=== PATIENT | female | born 1975 | race Caucasian/White ===

== ENCOUNTER 2016-09-13 09:47 | Emergency (ER) | payer OTHER ==
[~2016-09-13] VITALS: Ht 154.9 cm; Wt 57.8 kg
[~2016-09-13 09:47] MED LIST: ALPR-411 PO; CYAN500T PO; FRRS300 PO; LEVO25TA PO; LEVO300T2 PO; MULT-506 PO; ONDA4TAB46 PO; PANT40TA PO
[2016-09-13 09:55] VITALS: TEMP 37.1; Ht 154.9 cm; Wt 57.8 kg
[2016-09-13] MEDS ORDERED: HYDR-3983 PO (10:39)
[2016-09-13] MEDS ORDERED: CLIN150C PO (10:39)
[2016-09-13] MEDS ORDERED: OXYCODONE IR HOME PACK PO STA (11:02)
--- NOTE | 2016-09-13 11:05 | EMERGENCY ROOM VISIT NOTE ---
History First contact with patient: 10:42 Chief Complaint: DENTAL PAIN Stated Complaint: PAIN BECAUSE OF TEETH EXTRACTIONS Nursing Triage Summary: pt had 8 teeth pulled yesterday and cant get her pain under control, called dentist but they arent available History of Present Illness The patient is a 41 year old female who presents to the Emergency Room via private vehicle with complaints of "pain because of teeth extractions". The patient states that yesterday around 9 AM she had 8 posterior teeth extracted from her mouth. She states this was performed due to [place], by Dr. Verdugo. She has had trouble sleeping since the incident and although she has been prescribed [place] 7.5/325 as well as clindamycin 150 mg she has had a lot of pain. She states that she called the dentist office this morning and they told her that the dentist was not in today and that if she needed to she could go to the emergency department. She notes that her whole mouth hurts and the right posterior jaw. She states the teeth were all molars. She states that she drove here today however her last dose of [place] was at 2 AM this morning. She notes she took 4 Ol[place] tablets yesterday and then also one at 2 AM. She has had associated chills. She denies any fever. She notes minimal draining initially which has stopped. She has followed the instructions of which were provided to her in a handout from the dentist. Review of Systems A complete 6-point Review of Systems was discussed with the patient, with pertinent positives and negatives listed in the History of Present Illness. All remaining Review of Systems questions can be considered negative unless otherwise specified. Past Medical/Surgical History Medical Problems: (1) gastric bypass (2) Hypothyroidism (3) ulcer Family History Unremarkable Social History Smoking Status: Current Every Day Smoker Alcohol Use: occasionally Drug Use: none Marital Status: in relationship Housing Status: lives with family Occupation Status: employed Social History: Patient lives at home, admits to tobacco use but denies alcohol use. Current/Historical Medications Scheduled Alprazolam (Xanax), 0.25 MG PO BID Clindamycin Hcl (Cleocin), 150 MG PO QID Levothyroxine Sodium (Synthroid), 0.5 TAB PO DAILY Levothyroxine Sodium (Synthroid), 300 MCG PO DAILY Multivitamin (Multivitamin), 1 TAB PO DAILY Pantoprazole (Protonix), 40 MG PO BID Scheduled PRN Hydrocodone/Acetaminophen 7.5MG/325MG ([place] 7.5MG/325MG), 1 TAB PO Q6H PRN for Pain Ondansetron Hcl (Zofran), 4 MG PO Q6H PRN for Nausea Allergies Coded Allergies: Penicillins (Verified Allergy, Severe, FACIAL SWELLING,HIVES, 09/13/16) FACIAL SWELLING AND HIVES Sulfa Antibiotics (Verified Allergy, Intermediate, Hives, 09/13/16) Physical Exam Vital Signs Date Time Temp Pulse Resp B/P Pulse Ox O2 Delivery O2 Flow Rate FiO2 09/13/16 11:12 83 120/77 100 09/13/16 09:55 37.1 99 18 125/87 100 Room Air Physical Exam VITAL SIGNS - Vital signs and nursing notes were reviewed. Patient is afebrile , normotensive, non-tachycardic and is saturating well on room air 100%. GENERAL -41-year-old female appearing her stated age who is in no acute distress. Communicates well with provider and answers questions appropriately. SKIN - Without rashes. No petechial rashes or bruising on the face. There is slight edema overlying the right angle of the mandible. HEAD - NC/AT. MOUTH/OROPHARYNX - Without perioral cyanosis. Buccal mucosa pink and moist and without leukoplakia. Tongue midline with equal elevation of palate bilaterally. No tonsillar hypertrophy, erythema, or exudates noted. Fair dentition noted. There is evidence of recent extraction of molars. There is no bleeding. No evidence of abnormality with the extraction sites. No evidence of infection at this time. NECK - Neck with FROM. Supple to palpation. No lymphadenopathy noted. No nuchal rigidity. Mild swelling over the right angle of the mandible. LUNGS - Chest wall symmetric without accessory muscle use, intercostals retractions, or central cyanosis. Normal vesicular breath sounds CTA B/L. No wheezes, rales, or rhonchi appreciated. CARDIAC - RRR with S1/S2. No murmur, rubs, or gallops appreciated. Medical Decision & Procedures Medications Administered Medications (Trade) Dose Ordered Sig/Kalli Route Start Time Stop Time Status Last Admin Dose Admin Oxycodone HCl (Roxicodone Immediate Rel 5MG Home Pack) 1 homepack UD STAT PO 09/13/16 11:02 09/13/16 11:04 DC 09/13/16 11:07 1 [facility] Medical Decision Patient was seen and evaluated as above. It appears the patient is experiencing postoperative pain. No evidence of infection at this time. I was concerned that the patient's dentist had told her to go to the ER and therefore did elect to call the dentist with the patient's consent. I spoke with the officer at 11 AM. I called the [phone] number. They informed me that they did indeed tell the patient to go to the ER if she needed to as there were no dentist in the office that would be able to see her. They did however offer to have her seen tomorrow if the patient would call. I do believe this is appropriate and discussed this with the patient who seemed happy and requested some relief in the meantime's that she may be able to sleep. I did not feel comfortable providing additional prescription on top of the [place] as she already had many tablets left therefore did elect to give her a slightly stronger medication, oxycodone immediate release 5 mg tablets. This was provided to her in a home pack and not prescription again due to having the already new prescription of [place]. She seemed happy with this, and was educated upon worrisome symptoms which to return, had questions prior to discharge, and was discharged home in good condition. My usual and customary conversation was had with the patient regarding narcotic medication. In the evaluation and treatment of this patient, the following differential diagnoses were considered: Periapical Abscess, Osteonecrosis of the Jaw, Dental Fracture, Dental Caries, Brandon's Angina, Vincent's Angina, Facial Cellulitis. [place] Drug Monitoring Program Search Results: patient reviewed within database, see additional documentation Impression Primary Impression: Pain, dental Departure Information Dispostion Home / Self-Care Condition GOOD Patient Instructions My [facility] Additional Instructions You have been treated in the Emergency Department for Dental Pain. You have been prescribed A 24 hour supply of OXY IR to be used for pain control. This is a narcotic medication. You cannot drive or consume alcohol while on this medicine. This medicine should only be used for pain that cannot be controlled with [id number] pain medicines. Please do not take this medication with the [place]. Please continue the clindamycin. I did speak with your dentist office, and they're encouraging you to call them to schedule an appointment for tomorrow. For pain control, you can use the following [id number] medicines (if >12 yo): - Regular strength (325mg/tab) Tylenol (acetaminophen) 2 tabs every 4-6 hours as needed. Do not exceed 12 tablets in a 24 hour period. Avoid taking more than 4 grams (4000 mg) of Tylenol per day. This includes any other sources of acetaminophen you may take on a regular basis. (DO NOT TAKE WITH THE [place]/ HYDROCODONE ACETAMINOPHEN 7.5/325 IT ALREADY HAS TYLENOL IN IT) - Regular strength (200 mg/tab) Advil (ibuprofen) 1-2 tabs every 4-6 hours as needed. Do not exceed a dose of 3200 mg per day. Refrain from smoking cigarettes or using chewing tobacco until you have been evaluated by your dentist. Keeping beverages lukewarm and consuming soft foods can decrease your pain. Warm compresses over the affected area may offer some relief. You MUST seek evaluation of your dental pain by a dentist following your visit to the Emergency Department. The Emergency Department is not capable of treating dental issues long-term. You should call your dentist as soon as possible to make an appointment for evaluation of your dental pain. Return to the emergency department if you develop the following symptoms despite treatment course outlined above: fever, intractable pain, increased redness, swelling, or purulent discharge. Please return to the emergency department with any new/concerning symptoms.
[2016-09-13 11:12] VITALS: BP 120/77; PULSE 83; O2SAT 100
[2016-10-04] MEDS ORDERED: DLD2 PO ×2 (18:46→18:49)
[2016-10-05] MEDS ORDERED: VALA1TAB31 PO (20:08)
== END 2016-09-13 11:13 | disposition home or self-care (01) ==
LOC: C.EDB 09:48 → C.EDC 11:13
DX: K08.89 Other specified disorders of teeth and supporting structures (principal); E03.9 Hypothyroidism, unspecified; F17.200 Nicotine dependence, unspecified, uncomplicated; Z87.19 Personal history of other diseases of the digestive system; Z79.899 Other long term (current) drug therapy; Z88.0 Allergy status to penicillin; Z88.2 Allergy status to sulfonamides

== ENCOUNTER 2016-10-01 15:59 | Inpatient (IN) | payer OTHER ==
[~2016-10-01] VITALS: Ht 154.9 cm; Wt 62.9 kg
[~2016-10-01 15:59] MED LIST changes: +CLIN150C PO; -CYAN500T PO; -FRRS300 PO; +HYDR-3983 PO
[2016-10-01] MEDS ORDERED: PROCHLORPERAZINE 5 MG/ML 2 ML VIAL IV STA (18:07)
[2016-10-01] MEDS ORDERED: SODIUM CHLORIDE 0.9% 1000ML 1,000 ML IV STA ×2 (18:07→19:56)
[2016-10-01] MEDS ORDERED: KETOROLAC TROMETHAMINE 30 MG/ML VIAL IV STA (18:07)
[2016-10-01] MEDS ORDERED: DiphenhydrAMINE HCL 50 MG/ML VIAL IV STA (18:07)
--- NOTE | 2016-10-01 18:09 | EMERGENCY ROOM VISIT NOTE ---
History Report prepared by Bam: Saul Rojas Under the Supervision of: Dr. Mega Hurst M.D. First contact with patient: 17:57 Chief Complaint: ILLNESS Stated Complaint: MIGRAINE,STIFF/PAINFUL NECK,FEVER History of Present Illness The patient is a 41 year old female who presents to the Emergency Room with complaints of a headache that began three days ago. The patient rates her pain a 10/10 in severity. She has had migraines in the past, but not in five years or so. She states that this is "the worst headache she has ever felt." She is also experiencing neck pain, nausea, fever, chills, and light sensitivity that have developed since the headache began. She denies any rhinorrhea or congestion. Her pain worsens with movement. She has a history of a tubal ligation, and denies any chance to be . Source of History: patient Onset: 3 days ago Position: head Symptom Intensity: 10/10 Quality: ache Timing: constant Modifying Factors (Worsening): movement Associated Symptoms: + chills, + fevers, + nausea, + neck pain Note: She denies any rhinorrhea or chest congestion. Review of Systems See HPI for pertinent positives & negatives. A total of 10 systems reviewed and were otherwise negative. Past Medical & Surgical Medical Problems: (1) gastric bypass (2) Hypothyroidism (3) ulcer Family History Patient reports no known family medical history. Social History Smoking Status: Current Every Day Smoker Alcohol Use: occasionally Drug Use: none Marital Status: in relationship Housing Status: lives with family Occupation Status: employed Current/Historical Medications Scheduled Levothyroxine Sodium (Levothyroxine Sodium), 112 MCG PO QAM Levothyroxine Sodium (Levothyroxine Sodium), 200 MCG PO QAM Multivitamin (Multivitamin), 1 TAB PO DAILY Pantoprazole (Protonix), 40 MG PO BID Scheduled PRN Alprazolam (Xanax), 0.25 MG PO DAILY PRN for Anxiety Allergies Coded Allergies: Penicillins (Verified Allergy, Severe, FACIAL SWELLING,HIVES, 10/01/16) FACIAL SWELLING AND HIVES Sulfa Antibiotics (Verified Allergy, Intermediate, Hives, 10/01/16) Physical Exam Vital Signs Date Time Temp Pulse Resp B/P Pulse Ox O2 Delivery O2 Flow Rate FiO2 10/01/16 20:00 81 16 120/74 99 Room Air 10/01/16 18:13 100 Room Air 10/01/16 18:12 87 10/01/16 18:03 105 20 129/81 100 Room Air 10/01/16 16:16 37.3 100 18 119/81 100 Room Air Physical Exam GENERAL: Patient is a healthy-appearing well-nourished HEAD: Normocephalic atraumatic EYES: Ocular movements intact pupils equal and react to light OROPHARYNX mucous membranes are moist no exudates present no erythema or edema present NECK: Supple no nuchal rigidity CHEST: Good equal expansion LUNGS: Clear and equal to auscultation CARDIAC: Normal S1 and S2 ABDOMEN: Soft nontender no guarding BACK: No CVA tenderness EXTREMITIES: No pain upon palpation normal muscle strength in all groups no clubbing cyanosis or edema NEURO: Patient is following commands is answering questions appropriately. Alert and oriented x3 Cranial Nerves 2-12 grossly intact Medical Decision & Procedures ER Provider Diagnostic Interpretation: Radiology results are stated below per my review and radiologist interpretation: HEAD CT NONCONTRAST CT DOSE: 844.62 mGy.cm HISTORY: Headache Pt c/o severe headache TECHNIQUE: Multiaxial CT images of the head were performed without the use of intravenous contrast. Comparison: 09/21/2013 Findings: The paranasal sinuses and mastoid air cells are clear. The calvarium and skull base are intact. The ventricles and sulci are within normal limits. There is no mass, hematoma, midline shift, or acute infarct. Impression: No acute intracranial abnormality. Electronically signed by: Asael Hendricks M.D. 10/01/2016 6:58 PM Dictated Date/Time: 10/01/2016 6:57 PM Laboratory Results 10/01/16 18:28 Red Blood Count 4.41, Mean Corpuscular Volume 71.7, Mean Corpuscular Hemoglobin 22.7, Mean Corpuscular Hemoglobin Concent 31.6, Mean Platelet Volume 10.3, Neutrophils (%) (Auto) 60.5, Lymphocytes (%) (Auto) 26.3, Monocytes (%) (Auto) 11.3, Eosinophils (%) (Auto) 1.6, Basophils (%) (Auto) 0.3, Neutrophils # (Auto ) 2.30, Lymphocytes # (Auto) 1.00, Monocytes # (Auto) 0.43, Eosinophils # (Auto ) 0.06, Basophils # (Auto) 0.01 10/01/16 18:28 Test 10/01/16 00:00 10/01/16 18:28 10/01/16 18:45 10/01/16 19:50 Influenza Type A Antigen Neg for Influ A (NEG) Influenza Type B Antigen Neg for Influ B (NEG) White Blood Count 3.80 K/uL (4.8-10.8) Red Blood Count 4.41 M/uL (4.2-5.4) Hemoglobin 10.0 g/dL (12.0-16.0) Hematocrit 31.6 % (37-47) Mean Corpuscular Volume 71.7 fL (80-100) Mean Corpuscular Hemoglobin 22.7 pg (25-34) Mean Corpuscular Hemoglobin Concent 31.6 g/dl (32-36) Platelet Count 245 K/uL (130-400) Mean Platelet Volume 10.3 fL (7.4-10.4) Neutrophils (%) (Auto) 60.5 % Lymphocytes (%) (Auto) 26.3 % Monocytes (%) (Auto) 11.3 % Eosinophils (%) (Auto) 1.6 % Basophils (%) (Auto) 0.3 % Neutrophils # (Auto) 2.30 K/uL (1.4-6.5) Lymphocytes # (Auto) 1.00 K/uL (1.2-3.4) Monocytes # (Auto) 0.43 K/uL (0.11-0.59) Eosinophils # (Auto) 0.06 K/uL (0-0.5) Basophils # (Auto) 0.01 K/uL (0-0.2) RDW Standard Deviation 37.2 fL (36.4-46.3) RDW Coefficient of Variation 14.2 % (11.5-14.5) Immature Granulocyte % (Auto) 0.0 % Immature Granulocyte # (Auto) 0.00 K/uL (0.00-0.02) Large Platelets 1+ Microcytosis PRESENT Anion Gap 8.0 mmol/L (3-11) Est Creatinine Clear Calc Drug Dose 85.0 ml/min Estimated GFR () 128.3 Estimated GFR (Non- 110.7 BUN/Creatinine Ratio 8.7 (10-20) Calcium Level 8.8 mg/dl (8.5-10.1) Total Bilirubin 0.4 mg/dl (0.2-1) Direct Bilirubin < 0.1 mg/dl (0-0.2) Aspartate Amino Transf (AST/SGOT) 16 U/L (15-37) Alanine Aminotransferase (ALT/SGPT) 16 U/L (12-78) Alkaline Phosphatase 76 U/L (45-117) Total Protein 7.4 gm/dl (6.4-8.2) Albumin 3.7 gm/dl (3.4-5.0) Monoscreen NEG (NEG) Urine Color DK YELLOW Urine Appearance CLOUDY (CLEAR) Urine pH 6.5 (4.5-7.5) Urine Specific [place] 1.034 (1.000-1.030) Urine Protein TRACE (NEG) Urine Glucose (UA) NEG (NEG) Urine Ketones TRACE (NEG) Urine Occult Blood NEG (NEG) Urine Nitrite NEG (NEG) Urine Bilirubin NEG (NEG) Urine Urobilinogen NEG (NEG) Urine Leukocyte Esterase SMALL (NEG) Urine WBC (Auto) 1-5 /hpf (0-5) Urine RBC (Auto) 0-4 /hpf (0-4) Urine Hyaline Casts (Auto) 1-5 /lpf (0-5) Urine Epithelial Cells (Auto) >30 /lpf (0-5) Urine Bacteria (Auto) NEG (NEG) Urine Test NEG (NEG) CSF Color COLORLESS CSF Appearance CLEAR CSF WBC 370 /uL (0-5) CSF RBC 2 /uL (0) CSF Polynuclear WBCs 9.0 % CSF Mononuclear WBCs 91.0 % CSF Xanthrochromic NO XANTHOCHROMIA CSF Cell Count Tube # 4 CSF Chemistry Tube # 2 CSF Glucose 54 mg/dl (40-70) CSF Total Protein 66.3 mg/dl (15.0-45.0) Labs reviewed by ED physician. Medications Administered Medications (Trade) Dose Ordered Sig/Kalli Route Start Time Stop Time Status Last Admin Dose Admin Sodium Chloride (Nss 1000ml) 1,000 ml @ 999 mls/hr Q1H1M STAT IV 10/01/16 18:07 10/01/16 19:07 DC 10/01/16 18:35 999 MLS/HR Diphenhydramine HCl (Benadryl Inj) 50 mg NOW STAT IV 10/01/16 18:07 10/01/16 18:11 DC 10/01/16 18:35 50 MG Dexamethasone Sodium Phosphate (Decadron Inj) 10 mg NOW ONCE IV 10/01/16 18:15 10/01/16 18:16 DC 10/01/16 18:35 10 MG Ketorolac Tromethamine (Toradol Inj) 30 mg NOW STAT IV 10/01/16 18:07 10/01/16 18:11 DC 10/01/16 18:35 30 MG Prochlorperazine Edisylate (Compazine Inj) 5 mg NOW STAT IV 10/01/16 18:07 10/01/16 18:11 DC 10/01/16 18:35 5 MG Hydromorphone HCl (Dilaudid Inj) 0.5 mg NOW STAT IV 10/01/16 19:27 10/01/16 19:28 DC 10/01/16 19:39 0.5 MG Ondansetron HCl (Zofran Inj) 4 mg NOW STAT IV 10/01/16 19:27 10/01/16 19:28 DC 10/01/16 19:38 4 MG Hydromorphone HCl 0.5 mg 0.5 mg NOW STAT IV 10/01/16 19:56 10/01/16 19:58 DC 10/01/16 20:12 0.5 MG Sodium Chloride 1,000 ml @ 999 mls/hr Q1H1M STAT IV 10/01/16 19:56 10/01/16 20:56 DC 10/01/16 20:11 999 MLS/HR Promethazine HCl/ Sodium Chloride (Phenergan Inj/ Nss 50ml) 51 ml @ 204 mls/hr NOW STAT IV 10/01/16 19:56 10/01/16 20:10 DC 10/01/16 20:11 204 MLS/HR Magnesium Sulfate (Magnesium Sulfate) 1 gm NOW STAT IV 10/01/16 19:56 10/01/16 19:58 DC 10/01/16 20:11 1 GM Ceftriaxone Sodium (Rocephin Inj) 2 gm NOW STAT IV 10/01/16 21:19 10/01/16 21:23 DC 10/01/16 21:30 2 GM Levofloxacin (Levaquin / D5W) 750 mg NOW STAT IV 10/01/16 21:19 10/01/16 21:23 DC 10/01/16 21:31 750 MG Procedure Lumbar Puncture Indication: Headache. Verbal consent was obtained after the risks and benefits were explained, including but not limited to headache, bleeding/clotting, scarring, infection, pain, and bone/joint/nerve damage. At this time, the risks of the procedure are less than the risks of NOT performing the procedure. A time out was taken and the correct patient and site identified. The patient was placed in the upright position and the back was prepped with betadine and draped in the standard fashion. The L3 intervertebral space was identified, anesthetized locally with 1 % lidocaine without epinephrine, and the spinal needle was inserted through the skin with the bevel parallel to the dural fibers. The needle was carefully advanced into the lumbar cistern and 4 tubes of clear CSF was obtained. The stylet was replaced and the needle was removed. A bandaid was placed and the patient was placed in the supine position. The patient tolerated the procedure well and there were no complications. ED Course 1756: Past medical records reviewed. The patient was evaluated in room C7. A complete history and physical examination was performed. 1806: Ordered Compazine Inj 5 mg IV, Toradol Inj 30 mg IV, Benadryl Inj 50 mg IV , Sodium Chloride 1000 ml @ 999 mls/hr IV 1814: Ordered Decadron Inj 10 mg 1926: Ordered Zofran Inj 4 mg IV, Dilaudid Inj 0.5 mg IV 1934: At this time, I performed a lumbar puncture procedure. Please see the procedure note for further detail. 1955: Ordered Magnesium Sulfate 1 gm IV, Promethazine HCl 25 mg/ Sodium Chloride 51 ml @ 204 mls/hr IV, Sodium Chloride 1000 ml @ 999 mls/hr IV, Dilaudid Inj 0.5 mg IV 2118: Ordered Vancomycin HCl 1000 mg/ Sodium Chloride 270 ml @ 125 mls/hr IV, Acyclovir Sodium 750 mg/Dextrose 265 ml @ 265 mls/hr IV, Levofloxacin 750 mg IV , Rocephin Inj 2 gm IV 2121: Upon reexamination the patient is resting. I discussed results and treatment plan with the patient. She verbalizes agreement and understanding. I spoke with Dr. Purdy from the [facility] Hospitalist Service. The patient will be evaluated for further management. Medical Decision Differential diagnosis: Etiologies such as migraine headache, meningitis, sinusitis, CO exposure, ICH, SAH, infection, tumor, headache, sinus thrombosis, arterial dissection, as well as others were entertained. 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 The patient is also complaining of a stiff neck and cannot bend her head forward. Based on these findings I felt a lumbar puncture was indicated and discussed this with the patient. She willingly signed the consent. An IV was established, the patient given normal saline bolus, Benadryl, Compazine, Toradol, Decadron. Repeat examination revealed improvement patient's symptoms. The patient's lumbar puncture was performed as above. She was empirically started on Rocephin and vancomycin and acyclovir based on the fact that she had an elevation in her white blood cell count in her CSF. She was also given Levaquin. I did discuss the case with the hospitalist service who agreed to admit the patient. Patient was in agreement with the treatment plan. Consults Time Called: 2114 Consulting Physician: Dr. Purdy - [facility] Returned Call: 2121 He will be evaluating the patient for further management. Impression Primary Impression: Viral meningitis Scribe Attestation The scribe's documentation has been prepared under my direction and personally reviewed by me in its entirety. I confirm that the note above accurately reflects all work, treatment, procedures, and medical decision making performed by me. Departure Information Dispostion Being Evaluated By Hospitalist Referrals No Doctor, Assigned (PCP) Patient Instructions My [facility]
[2016-10-01] MEDS ORDERED: DEXAMETHASONE SOD INJ 10 MG/ML VIAL IV ONE (18:15)
[2016-10-01] MEDS ORDERED: LEVO200T6 PO (18:24)
[2016-10-01] MEDS ORDERED: LEVO112T4 PO (18:24)
[2016-10-01 18:46] LABS: BASO % 0.3 %; BASO ABS # 0.01 K/uL (0-0.2); EOS % 1.6 %; HEMATOCRIT 31.6 % (37-47); LYMPH % 26.3 %; MEAN CELL VOLUME 71.7 fL (80-100); MEAN CORPUSCULAR HEMOGLOBIN 22.7 pg (25-34); MEAN CORPUSCULAR HGB CONC 31.6 g/dl (32-36); MEAN PLATELET VOLUME 10.3 fL (7.4-10.4); MONO % 11.3 %; NEUT % 60.5 %; PLATELET COUNT 245 K/uL (130-400); RED BLOOD COUNT 4.41 M/uL (4.2-5.4)
--- NOTE | 2016-10-01 19:00 | DIAGNOSTIC IMAGING REPORT ---
HEAD CT NONCONTRAST CT DOSE: 844.62 mGy.cm HISTORY: Headache Pt c/o severe headache TECHNIQUE: Multiaxial CT images of the head were performed without the use of intravenous contrast. Comparison: 09/21/2013 Findings: The paranasal sinuses and mastoid air cells are clear. The calvarium and skull base are intact. The ventricles and sulci are within normal limits. There is no mass, hematoma, midline shift, or acute infarct. Impression: No acute intracranial abnormality. Electronically signed by: Asael Hendricks M.D. 10/01/2016 6:58 PM Dictated Date/Time: 10/01/2016 6:57 PM
[2016-10-01 19:05] LABS: URINE APPEARANCE CLOUDY (CLEAR); URINE BILIRUBIN NEG (NEG); URINE COLOR DK YELLOW; URINE EPITHELIAL CELL AUTO >30 /lpf (0-5); URINE NITRITE NEG (NEG); URINE PH 6.5 (4.5-7.5); URINE SPECIFIC GRAVITY 1.034 (1.000-1.030); UROBILINOGEN NEG (NEG)
[2016-10-01 19:11] LABS: COMPLETE YES; LARGE PLATELETS 1+; MICROCYTOSIS PRESENT
[2016-10-01 19:12] LABS: MANUAL MICROSCOPIC REQUIRED? NO; REVIEW REQ? NO
[2016-10-01 19:23] LABS: BLOOD UREA NITROGEN 6 mg/dl (7-18); CREATININE 0.67 mg/dl (0.60-1.20); GLUCOSE 99 mg/dl (70-99)
[2016-10-01 19:24] LABS: ALT/SGPT 16 U/L (12-78); BUN/CREATININE RATIO 8.7 (10-20); CALCIUM 8.8 mg/dl (8.5-10.1); CARBON DIOXIDE 25 mmol/L (21-32); CHLORIDE 108 mmol/L (98-107); POTASSIUM 3.7 mmol/L (3.5-5.1); SODIUM 141 mmol/L (136-145)
[2016-10-01 19:26] LABS: ALKALINE PHOSPHATASE 76 U/L (45-117); AST/SGOT 16 U/L (15-37)
[2016-10-01] MEDS ORDERED: HYDROmorphone INJ 0.5 MG/0.5 ML SYR IV STA ×2 (19:27→19:56)
[2016-10-01] MEDS ORDERED: ONDANSETRON INJ 2 MG/ML 2 ML VIAL IV STA (19:27)
[2016-10-01] MEDS ORDERED: PROMETHAZINE HCL INJ 25 MG in SODIUM CHLORIDE 0.9% 50ML 50 ML IV STA (19:56)
[2016-10-01] MEDS ORDERED: MAGNESIUM SULFATE 1GM / D5W 1 GM BAG IV STA (19:56)
[2016-10-01 20:20] LABS: CSF CHEMISTRY TUBE # 2
[2016-10-01 20:22] LABS: CSF TOTAL PROTEIN 66.3 mg/dl (15.0-45.0)
[2016-10-01 20:34] LABS: CSF APPEARANCE CLEAR; CSF COLOR COLORLESS; CSF XANTHOCHROMIC NO XANTHOCHROMIA
[2016-10-01] MEDS ORDERED: LEVAQUIN 750MG / 150ML D5W IV STA (21:19)
[2016-10-01] MEDS ORDERED: VANCOMYCIN INJ 1,000 MG in SODIUM CHLORIDE 0.9% 250ML 250 ML IV STA (21:19)
[2016-10-01] MEDS ORDERED: CEFTRIAXONE SOD INJ 1 GM ADDVIAL IV STA (21:19)
[2016-10-01] MEDS ORDERED: ACYCLOVIR SOD INJ 750 MG in DEXTROSE 5% 250ML 250 ML IV STA (21:19)
[2016-10-01] MEDS ORDERED: SODIUM CHLORIDE 0.9% 1000ML 1,000 ML IV SCH (21:47)
[2016-10-01] MEDS ORDERED: ALUMINUM/MAGNESIUM/SIMETH (MAALOX MAX) 30 ML UDC PO PRN (22:00)
[2016-10-01] MEDS ORDERED: MAGNESIUM HYDROXIDE SUSP 30 ML UDC PO PRN (22:00)
[2016-10-01 22:39] LABS: INR 1.2 (0.9-1.1); PROTHROMBIN TIME (PATIENT) 12.9 SECONDS (9.0-12.0)
[2016-10-01 22:51] LABS: INFLUENZA A PCR Neg for Influ A (NEG); INFLUENZA B PCR Neg for Influ B (NEG)
--- NOTE | 2016-10-01 23:27 | Pharmacy Progress Note ---
Pharmacy Antibiotic Consult Date of Service: Oct 01, 2016. Pharmacy Dosing Scope Pharmacy is consulted to initiate VANOCMYCIN IV dosing therapy, order appropriate labs and adjust drug dose/frequency. Subjective The patient is a 41 year old female admitted on . Objective Height (Feet): 5 Height (Inches): 1.00 Weight (Kilograms): 55.700 Lab Results (24hrs): Laboratory Tests Test 10/01/16 18:28 BUN/Creatinine Ratio 8.7 Blood Urea Nitrogen 6 mg/dl Creatinine 0.67 mg/dl White Blood Count 3.80 K/uL Red Blood Count 4.41 M/uL Hemoglobin 10.0 g/dL Hematocrit 31.6 % Mean Corpuscular Volume 71.7 fL Mean Corpuscular Hemoglobin 22.7 pg Mean Corpuscular Hemoglobin Concent 31.6 g/dl Platelet Count 245 K/uL Mean Platelet Volume 10.3 fL Neutrophils (%) (Auto) 60.5 % Lymphocytes (%) (Auto) 26.3 % Monocytes (%) (Auto) 11.3 % Eosinophils (%) (Auto) 1.6 % Basophils (%) (Auto) 0.3 % Neutrophils # (Auto) 2.30 K/uL Lymphocytes # (Auto) 1.00 K/uL Monocytes # (Auto) 0.43 K/uL Eosinophils # (Auto) 0.06 K/uL Basophils # (Auto) 0.01 K/uL Micro Results: * 10/01/16 - Blood Cx x 2 --pending * 10/01/16 -- CSF -- pending Recent Pertinent Medications Item Value Date Time Ceftriaxone 70 ml @ 100 mls/hr 10/02/16 1000 Sodium 2000 mg/ Q12H/IV Dextrose Acyclovir Sodium 111 ml @ 100 mls/hr 10/02/16 0600 550 mg/Dextrose Q8H/IV Levofloxacin 750 mg 10/01/162118 (Levaquin / D5W) NOW STAT/IV 10/01/162130 Assessment & Plan 41yo female admitted with possible meningitis. Ordered VANCOMYCIN / ACYCLOVIR / ROCEPHIN. Renal function is stable. VANCOMYCIN: * Loading dose: VANCOMYCIN 1000mg (~18mg/kg) IV X 1 dose then VANCOMYCIN 850mg (~15mg/kg) IV every 10 hours. * Will start maintenance dosing early, as patient did not receive full 25mg/kg loading dose. * Estimated Pk Values: Vd ~0.7 L/kg t 1/2 ~9 hours ke ~0.075 * Goal trough level estimate: between 15 - 20 mcg/mL. * Trough level has been ordered for: @ 0000. Pharmacy will continue to follow and will adjust dose/frequency as necessary. Thank you
[2016-10-01] MEDS: ACETAMINOPHEN 325 MG TAB PO PRN (23:40)
[2016-10-02] VITALS (14 sets, daily range): BP systolic 87–130; BP diastolic 51–81; PULSE 72–98; TEMP 36.4–36.7; O2SAT 97–100; Ht 154.9 cm; Wt 62.9 kg
--- NOTE | 2016-10-02 00:01 | History and Physical ---
History & Physical Date & Time of Service: Oct 01, 2016 at 23:48 Chief Complaint: Migraine,Stiff/Painful Neck,Fever Primary Care Physician: Nuzhat Perales DO History of Present Illness Source: patient 41-year-old female with past medical history of hypothyroidism presented to the ER with complaints of a headache and neck stiffness which started about 3 days ago. She states that the headache is the worse headache she ever had. She also complains of neck stiffness, photophobia, nausea with fever and chills. She denied any rashes, tick bites, cold sores, rhinorrhea or upper respiratory tract infection. Her vaccines including flu are up-to-date. 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 Past Medical/Surgical History Medical Problems: (1) gastric bypass Status: Resolved (2) Hypothyroidism Status: Chronic (3) ulcer Status: Chronic Family History Patient reports no known family medical history. Social History Smoking Status: Current Every Day Smoker Drug Use: none Marital Status: in relationship Housing status: lives with family Occupational Status: employed Immunizations History of Influenza Vaccine: Yes Influenza Vaccine Date: Mar 31, 2010 History of Tetanus Vaccine?: Yes History of Pneumococcal: No History of Hepatitis B Vaccine: No Multi-Drug Resistant Organisms History of MDRO: No Allergies Coded Allergies: Penicillins (Verified Allergy, Severe, FACIAL SWELLING,HIVES, 10/01/16) FACIAL SWELLING AND HIVES Sulfa Antibiotics (Verified Allergy, Intermediate, Hives, 10/01/16) Home Medications Scheduled Levothyroxine Sodium (Levothyroxine Sodium), 112 MCG PO QAM Multivitamin (Multivitamin), 1 TAB PO DAILY Pantoprazole (Protonix), 40 MG PO BID Scheduled PRN Alprazolam (Xanax), 0.25 MG PO DAILY PRN for Anxiety Hydromorphone HCl (Hydromorphone HCl), 1-2 TAB PO Q4 PRN for Pain Review of Systems Constitutional: + chills, + fever Eyes: + problem reported (photophobia), No worsening of vision ENT: No hearing loss Respiratory: No cough, No shortness of breath, No sputum Abdomen: + nausea, No diarrhea, No pain, No vomiting Musculoskeletal: + problem reported (neck stiffness) Genitourinary - Female: No dysuria, No urinary frequency, No urinary urgency Psychiatric: No depression symptoms Endocrine: No fatigue Hematologic / Lymphatic: No abnormal bleeding/bruising Integumentary: No rash Physical Exam Vital Signs Date Time Temp Pulse Resp B/P Pulse Ox O2 Delivery O2 Flow Rate FiO2 10/01/16 23:41 82 103/55 99 Room Air 10/01/16 21:46 85 16 124/77 99 Room Air 10/01/16 20:00 81 16 120/74 99 Room Air 10/01/16 18:13 100 Room Air 10/01/16 18:12 87 10/01/16 18:03 105 20 129/81 100 Room Air 10/01/16 16:16 37.3 100 18 119/81 100 Room Air General Appearance: WD/WN, no apparent distress Head: normocephalic Eyes: normal inspection, PERRL, EOMI Neck: supple Respiratory/Chest: chest non-tender, lungs clear, normal breath sounds, no respiratory distress, no accessory muscle use Cardiovascular: no murmur, + tachycardia Abdomen/GI: normal bowel sounds, non tender, soft Extremities/Musculoskelatal: no calf tenderness, no pedal edema Neurologic/Psych: alert, normal mood/affect, oriented x 3 Skin: normal color Diagnostics Laboratory Results Results Past 24 Hours Test 10/01/16 00:00 10/01/16 18:28 10/01/16 18:45 10/01/16 19:50 Range/Units Influenza Type A (RT-PCR) Neg for Influ A NEG Influenza Type A Antigen Neg for Influ A NEG Influenza Type B Antigen Neg for Influ B NEG Influenza Type B (RT-PCR) Neg for Influ B NEG White Blood Count 3.80 4.8-10.8 K/uL Red Blood Count 4.41 4.2-5.4 M/uL Hemoglobin 10.0 12.0-16.0 g/dL Hematocrit 31.6 37-47 % Mean Corpuscular Volume 71.7 80-100 fL Mean Corpuscular Hemoglobin 22.7 25-34 pg Mean Corpuscular Hemoglobin Concent 31.6 32-36 g/dl Platelet Count 245 130-400 K/uL Mean Platelet Volume 10.3 7.4-10.4 fL Neutrophils (%) (Auto) 60.5 % Lymphocytes (%) (Auto) 26.3 % Monocytes (%) (Auto) 11.3 % Eosinophils (%) (Auto) 1.6 % Basophils (%) (Auto) 0.3 % Neutrophils # (Auto) 2.30 1.4-6.5 K/uL Lymphocytes # (Auto) 1.00 1.2-3.4 K/uL Monocytes # (Auto) 0.43 0.11-0.59 K/uL Eosinophils # (Auto) 0.06 0-0.5 K/uL Basophils # (Auto) 0.01 0-0.2 K/uL RDW Standard Deviation 37.2 36.4-46.3 fL RDW Coefficient of Variation 14.2 11.5-14.5 % Immature Granulocyte % (Auto) 0.0 % Immature Granulocyte # (Auto) 0.00 0.00-0.02 K/uL Large Platelets 1+ Microcytosis PRESENT Prothrombin Time 12.9 9.0-12.0 SECONDS Prothromb Time International Ratio 1.2 0.9-1.1 Activated Partial Thromboplast Time 25.7 21.0-31.0 SECONDS Partial Thromboplastin Ratio 1.0 Sodium Level 141 136-145 mmol/L Potassium Level 3.7 3.5-5.1 mmol/L Chloride Level 108 98-107 mmol/L Carbon Dioxide Level 25 21-32 mmol/L Anion Gap 8.0 3-11 mmol/L Blood Urea Nitrogen 6 7-18 mg/dl Creatinine 0.67 0.60-1.20 mg/dl Est Creatinine Clear Calc Drug Dose 85.0 ml/min Estimated GFR () 128.3 Estimated GFR (Non- 110.7 BUN/Creatinine Ratio 8.7 10-20 Random Glucose 99 70-99 mg/dl Calcium Level 8.8 8.5-10.1 mg/dl Total Bilirubin 0.4 0.2-1 mg/dl Direct Bilirubin < 0.1 0-0.2 mg/dl Aspartate Amino Transf (AST/SGOT) 16 15-37 U/L Alanine Aminotransferase (ALT/SGPT) 16 12-78 U/L Alkaline Phosphatase 76 45-117 U/L Total Protein 7.4 6.4-8.2 gm/dl Albumin 3.7 3.4-5.0 gm/dl Monoscreen NEG NEG Urine Color DK YELLOW Urine Appearance CLOUDY CLEAR Urine pH 6.5 4.5-7.5 Urine Specific [place] 1.034 1.000-1.030 Urine Protein TRACE NEG Urine Glucose (UA) NEG NEG Urine Ketones TRACE NEG Urine Occult Blood NEG NEG Urine Nitrite NEG NEG Urine Bilirubin NEG NEG Urine Urobilinogen NEG NEG Urine Leukocyte Esterase SMALL NEG Urine WBC (Auto) 1-5 0-5 /hpf Urine RBC (Auto) 0-4 0-4 /hpf Urine Hyaline Casts (Auto) 1-5 0-5 /lpf Urine Epithelial Cells (Auto) >30 0-5 /lpf Urine Bacteria (Auto) NEG NEG Urine Test NEG NEG CSF Color COLORLESS CSF Appearance CLEAR CSF WBC 370 0-5 /uL CSF RBC 2 0 /uL CSF Polynuclear WBCs 9.0 % CSF Mononuclear WBCs 91.0 % CSF Xanthrochromic NO XANTHOCHROMIA CSF Cell Count Tube # 4 CSF Chemistry Tube # 2 CSF Glucose 54 40-70 mg/dl CSF Total Protein 66.3 15.0-45.0 mg/dl Microbiology Results 10/01/16 Blood Culture, Received Pending 10/01/16 Blood Culture, Received Pending 10/01/16 Gram Stain - Final, Resulted 10/01/16 CSF Culture, Resulted Pending Diagnostic Radiology HEAD CT NONCONTRAST CT DOSE: 844.62 mGy.cm HISTORY: Headache Pt c/o severe headache TECHNIQUE: Multiaxial CT images of the head were performed without the use of intravenous contrast. Comparison: 09/21/2013 Findings: The paranasal sinuses and mastoid air cells are clear. The calvarium and skull base are intact. The ventricles and sulci are within normal limits. There is no mass, hematoma, midline shift, or acute infarct. Impression: No acute intracranial abnormality. Impression Assessment and Plan 41-year-old female with past medical history of hypothyroidism presented with headache and neck stiffness which started about 3 days ago. Headache was associated with photophobia, nausea, neck stiffness, fevers and chills and a temperature at home was about 102 F. Her symptoms were very concerning for meningitis/encephalitis , LP done in the ER revealed high White Count of 370 with normal glucose of 54. CSF analysis appears to be viral but there is a possibility of early bacterial involvement too. She also had bigeminy on the monitor and was admitted to telemetry. Meningitis: Likely viral - LP done in the ER: Elevated white count of 370, normal glucose of 54 - Blood cultures, CSF culture pending - HSV pending, EBV antibodies pending - Lyme titers pending - Influenza swab negative - Monoscreen negative - Empirically treated with vancomycin, acyclovir, Levaquin, ceftriaxone, Decadron - Continue vancomycin, acyclovir, ceftriaxone, levaquin, dexamethasone - MRI for encephalitis - ID consult - Droplet precaution - Continue IV fluids especially considering acyclovir Hypothyroidism: - Continue Synthroid Full code DVT prophylaxis: SCDs Disposition: Monitor in telemetry Level of Care Telemetry Resuscitation Status FULL RESUSCITATION VTE Prophylaxis VTE Risk Assessment Done? Y/N: Yes Risk Level: Moderate Given or contraindicated: SCD's Assessment and Plan Attending Addendum: I have physically seen and examined this patient, have directed their medical care, have supervised the medical residents activities, and agree with the H&P as noted above, with the following changes: Assessment and Plan: Meningitis--the patient will be admitted to telemetry unit. Will place on vancomycin IV per renal dosing, ceftriaxone 2 g IV every 12 hours, levofloxacin 750 mg IV every 24 hours, Decadron 4 mg IV every 6 hours, acyclovir 750 mg IV every 8 hours, Dilaudid 0.5-1 mg IV every 2 hours when necessary and IV fluids consisting of normal saline with potassium chloride 20 mEq 100 mils per hour. We'll follow CSF fluid cultures, Lyme titers and blood cultures.
[2016-10-02] MEDS ORDERED: ONDANSETRON INJ 2 MG/ML 2 ML VIAL IV STA (00:07)
[2016-10-02] MEDS ORDERED: HYDROmorphone INJ 1 MG/ML SYR IV STA (00:07)
[2016-10-02] MEDS ORDERED: VANCOMYCIN CONSULT ACTIVE PRN (01:15)
[2016-10-02] MEDS ORDERED: HYDROmorphone INJ 0.5 MG/0.5 ML SYR IV PRN (01:30)
[2016-10-02] MEDS: HYDROmorphone INJ 1 MG/ML SYR IV PRN ×4 (01:54→11:02)
[2016-10-02] MEDS: DEXAMETHASONE INJ 4 MG in SYRINGE 0 ML IV SCH ×4 (02:12→20:14)
[2016-10-02] MEDS: NSS + 20MEQ KCL 1000ML 1,000 ML IV SCH ×3 (02:13→22:00)
[2016-10-02] MEDS: VANCOMYCIN INJ 850 MG in SODIUM CHLORIDE 0.9% 250ML 250 ML IV SCH ×2 (03:38→14:39)
[2016-10-02] MEDS: FENTANYL CITRATE INJ 50 MCG/1 ML 2 ML VIAL IV PRN ×3 (04:55→23:32)
[2016-10-02 05:57] LABS: IG% 0.3 %; LYMPH % 11.7 %; LYMPH ABS # 0.35 K/uL (1.2-3.4); MEAN CELL VOLUME 72.8 fL (80-100); MEAN CORPUSCULAR HEMOGLOBIN 22.7 pg (25-34); MEAN CORPUSCULAR HGB CONC 31.2 g/dl (32-36); MEAN PLATELET VOLUME 10.3 fL (7.4-10.4); MONO % 4.7 %; NEUT % 83.3 %; PLATELET COUNT 170 K/uL (130-400); RED BLOOD COUNT 3.57 M/uL (4.2-5.4); WHITE BLOOD COUNT 2.99 K/uL (4.8-10.8)
[2016-10-02] MEDS ORDERED: LEVOTHYROXINE 200 MCG TAB PO SCH (06:00)
[2016-10-02] MEDS: LEVOTHYROXINE 112 MCG TAB PO SCH (06:15)
[2016-10-02] MEDS: ACYCLOVIR SOD INJ 550 MG in DEXTROSE 5% 100ML 100 ML IV SCH ×2 (06:16→12:45)
[2016-10-02 06:23] LABS: BUN/CREATININE RATIO 15.1 (10-20); CALCIUM 8.5 mg/dl (8.5-10.1); CREATININE 0.56 mg/dl (0.60-1.20); POTASSIUM 4.3 mmol/L (3.5-5.1)
[2016-10-02 06:30] LABS: COMPLETE YES; ECHINOCYTES 1+; GIANT PLATELETS 1+
[2016-10-02] MEDS: MULTIVITAMIN TAB PO SCH (07:38)
[2016-10-02] MEDS: PANTOprazole SOD 40 MG TAB PO SCH ×2 (07:38→19:51)
[2016-10-02] MEDS: ENOXAPARIN 40 MG/0.4 ML SYR SC SCH (07:38)
[2016-10-02] MEDS: CEFTRIAXONE SOD INJ 2,000 MG in DEXTROSE 5% 50ML 50 ML IV SCH ×2 (07:38→23:31)
[2016-10-02] MEDS: ACETAMINOPHEN 325 MG TAB PO PRN (07:39)
--- NOTE | 2016-10-02 09:34 | Medical Consult ---
Consultation Date of Consultation: Oct 02, 2016. Attending Physician: Jaycob Purdy M.D. Reason for Consultation: Meningitis History of Present Illness 41-year-old female with hypothyroidism but otherwise healthy, was admitted to the hospital with 3 day history of progressive thinning next, headache, photophobia, fever chills with generalized aches and pains. She underwent lumbar puncture with finding of pleocytosis with 340 mostly mononuclear cells, slightly pain, normal glucose. Gram stain negative, culture is pending. Patient has been started empirically on IV vancomycin, ceftriaxone, and levofloxacin. Feeling better this morning. Temperature better. No significant travel or exposure history. No ill contacts. Past Medical/Surgical History Medical Problems: (1) Acute post-hemorrhagic anemia Status: Acute (2) Gastrointestinal hemorrhage Status: Acute (3) Pain, dental Status: Acute (4) Symptomatic anemia Status: Acute (5) Viral meningitis Status: Acute Medical Problems: (1) gastric bypass (2) Hypothyroidism (3) Intractable headache (4) ulcer Family History Patient reports no known family medical history. Social History Smoking Status: Current Every Day Smoker Drug Use: none Marital Status: in relationship Housing Status: lives with family Occupation Status: employed Allergies Coded Allergies: Penicillins (Verified Allergy, Severe, FACIAL SWELLING,HIVES, 10/01/16) FACIAL SWELLING AND HIVES Sulfa Antibiotics (Verified Allergy, Intermediate, Hives, 10/01/16) Current Inpatient Medications Current Inpatient Medications Medications (Trade) Dose Ordered Sig/Kalli Route Start Time Stop Time Status Last Admin Dose Admin Enoxaparin Sodium (Lovenox Inj) 40 mg Q24H SC 10/02/16 09:00 11/01/16 08:59 10/02/16 07:38 40 MG Acetaminophen (Tylenol Tab) 650 mg Q4H PRN PO 10/01/16 22:00 10/31/16 21:59 10/01/16 23:40 650 MG Al Hydrox/Mg Hydrox/Simethicone (Maalox Max Susp) 15 ml Q4H PRN PO 10/01/16 22:00 10/31/16 21:59 Magnesium Hydroxide (Milk Of Magnesia Susp) 30 ml Q12H PRN PO 10/01/16 22:00 10/31/16 21:59 Ondansetron HCl 4 mg 4 mg Q6H PRN IV 10/01/16 22:00 10/31/16 21:59 Vancomycin HCl 850 mg/Sodium Chloride 267 ml @ 125 mls/hr Q10H IV 10/02/16 04:00 10/12/16 03:59 10/02/16 03:38 125 MLS/HR Ceftriaxone Sodium 2000 mg/ Dextrose 70 ml @ 100 mls/hr Q12H IV 10/02/16 10:00 10/12/16 09:59 10/02/16 07:38 100 MLS/HR Acyclovir Sodium/ Dextrose (Zovirax Inj/D5 100ml) 111 ml @ 100 mls/hr Q8H IV 10/02/16 06:00 10/12/16 05:59 10/02/16 06:16 100 MLS/HR Levothyroxine Sodium (Synthroid Tab) 112 mcg DAILYBB PO 10/02/16 06:00 11/01/16 05:59 10/02/16 06:15 112 MCG Levothyroxine Sodium (Synthroid Tab) 200 mcg DAILYBB PO 10/02/16 06:00 11/01/16 05:59 10/02/16 06:15 200 MCG Multivitamins (Multivitamin Tab) 1 tab DAILY PO 10/02/16 09:00 11/01/16 08:59 10/02/16 07:38 1 TAB Pantoprazole Sodium (Protonix Tab) 40 mg BID PO 10/02/16 09:00 11/01/16 08:59 10/02/16 07:38 40 MG Vancomycin HCl 1 ea 1 ea UD PRN N/A 10/02/16 01:15 11/01/16 01:14 Levofloxacin 750 mg/Prmx 150 ml @ 100 mls/hr Q24H IV 10/02/16 22:00 10/12/16 21:59 Dexamethasone Sodium Phosphate/ Syringe (Decadron Inj/ Syringe) 1 ml @ 1 mls/min Q6H IV 10/02/16 02:00 11/01/16 01:59 10/02/16 07:38 1 MLS/MIN Hydromorphone HCl (Dilaudid Inj) 1 mg Q2H PRN IV 10/02/16 01:30 10/16/16 01:29 10/02/16 03:38 1 MG Hydromorphone HCl 0.5 mg 0.5 mg Q2H PRN IV 10/02/16 01:30 10/16/16 01:29 Potassium Chloride/Sodium Chloride (Nss + 20meq KCl 1000ml) 1,000 ml @ 100 mls/hr Q10H IV 10/02/16 02:00 11/01/16 01:59 10/02/16 02:13 100 MLS/HR Fentanyl Citrate (Fentanyl Inj) 50 mcg Q2H PRN IV 10/02/16 04:30 10/16/16 04:29 10/02/16 04:55 50 MCG Review of Systems Constitutional: + chills, + fever, + weakness Eyes: + problem reported (photophobia) ENT: No problem reported Respiratory: No problem reported Cardiovascular: No problem reported Abdomen: No problem reported Musculoskeletal: No problem reported Genitourinary - Female: No problem reported Neurologic: No problem reported Psychiatric: No problem reported Endocrine: No problem reported Hematologic / Lymphatic: No problem reported Integumentary: No problem reported Allergic / Immunologic: No problem reported Physical Exam Date Time Temp Pulse Resp B/P Pulse Ox O2 Delivery O2 Flow Rate FiO2 10/02/16 04:00 36.6 96 18 117/71 99 10/02/16 04:00 99 Room Air 10/02/16 03:00 81 17 116/70 97 10/02/16 02:00 88 16 109/68 99 10/02/16 01:00 98 17 87/61 99 10/02/16 00:28 36.4 72 21 98/63 99 Room Air 10/02/16 00:24 72 19 98/63 99 10/02/16 00:22 89 19 87/51 100 10/01/16 23:41 82 103/55 99 Room Air 10/01/16 21:46 85 16 124/77 99 Room Air 10/01/16 20:00 81 16 120/74 99 Room Air 10/01/16 18:13 100 Room Air 10/01/16 18:12 87 10/01/16 18:03 105 20 129/81 100 Room Air 10/01/16 16:16 37.3 100 18 119/81 100 Room Air General Appearance: WD/WN, no apparent distress Head: normocephalic, atraumatic Eyes: normal inspection, EOMI, sclerae normal, + pertinent finding (slight ocular tenderness) ENT: normal ENT inspection, hearing grossly normal, pharynx normal Neck: no adenopathy, thyroid normal, + pertinent finding (neck stiffness) Respiratory/Chest: chest non-tender, lungs clear, normal breath sounds, no respiratory distress Cardiovascular: regular rate, rhythm, no gallop, no murmur Abdomen/GI: normal bowel sounds, non tender, soft, no organomegaly Back: normal inspection, no CVA tenderness Extremities/Musculoskelatal: no calf tenderness, normal capillary refill, non- tender Neurologic/Psych: no motor/sensory deficits, alert, normal mood/affect, oriented x 3 Skin: normal color, warm/dry, no rash Lymphatic: no adenopathy Laboratory Results Date/Time Source Procedure Growth Status 10/01/16 18:32 Blood Blood Culture Pending Received 10/01/16 18:28 Blood Blood Culture Pending Received 10/01/16 19:50 Cerebral Spinal Fluid Gram Stain - Final Resulted 10/01/16 19:50 Cerebral Spinal Fluid CSF Culture Pending Resulted Last 24 Hours Test 10/01/16 18:28 10/01/16 18:45 10/01/16 19:50 10/02/16 05:30 White Blood Count 3.80 K/uL 2.99 K/uL Red Blood Count 4.41 M/uL 3.57 M/uL Hemoglobin 10.0 g/dL 8.1 g/dL Hematocrit 31.6 % 26.0 % Mean Corpuscular Volume 71.7 fL 72.8 fL Mean Corpuscular Hemoglobin 22.7 pg 22.7 pg Mean Corpuscular Hemoglobin Concent 31.6 g/dl 31.2 g/dl Platelet Count 245 K/uL 170 K/uL Mean Platelet Volume 10.3 fL 10.3 fL Neutrophils (%) (Auto) 60.5 % 83.3 % Lymphocytes (%) (Auto) 26.3 % 11.7 % Monocytes (%) (Auto) 11.3 % 4.7 % Eosinophils (%) (Auto) 1.6 % 0.0 % Basophils (%) (Auto) 0.3 % 0.0 % Neutrophils # (Auto) 2.30 K/uL 2.49 K/uL Lymphocytes # (Auto) 1.00 K/uL 0.35 K/uL Monocytes # (Auto) 0.43 K/uL 0.14 K/uL Eosinophils # (Auto) 0.06 K/uL 0.00 K/uL Basophils # (Auto) 0.01 K/uL 0.00 K/uL RDW Standard Deviation 37.2 fL 38.1 fL RDW Coefficient of Variation 14.2 % 14.3 % Immature Granulocyte % (Auto) 0.0 % 0.3 % Immature Granulocyte # (Auto) 0.00 K/uL 0.01 K/uL Large Platelets 1+ Microcytosis PRESENT Prothrombin Time 12.9 SECONDS Prothromb Time International Ratio 1.2 Activated Partial Thromboplast Time 25.7 SECONDS Partial Thromboplastin Ratio 1.0 Sodium Level 141 mmol/L 143 mmol/L Potassium Level 3.7 mmol/L 4.3 mmol/L Chloride Level 108 mmol/L 114 mmol/L Carbon Dioxide Level 25 mmol/L 21 mmol/L Anion Gap 8.0 mmol/L 8.0 mmol/L Blood Urea Nitrogen 6 mg/dl 8 mg/dl Creatinine 0.67 mg/dl 0.56 mg/dl Est Creatinine Clear Calc Drug Dose 85.0 ml/min 110.6 ml/min Estimated GFR () 128.3 136.1 Estimated GFR (Non- 110.7 117.5 BUN/Creatinine Ratio 8.7 15.1 Random Glucose 99 mg/dl 167 mg/dl Calcium Level 8.8 mg/dl 8.5 mg/dl Total Bilirubin 0.4 mg/dl Direct Bilirubin < 0.1 mg/dl Aspartate Amino Transf (AST/SGOT) 16 U/L Alanine Aminotransferase (ALT/SGPT) 16 U/L Alkaline Phosphatase 76 U/L Total Protein 7.4 gm/dl Albumin 3.7 gm/dl Monoscreen NEG Urine Color DK YELLOW Urine Appearance CLOUDY Urine pH 6.5 Urine Specific [place] 1.034 Urine Protein TRACE Urine Glucose (UA) NEG Urine Ketones TRACE Urine Occult Blood NEG Urine Nitrite NEG Urine Bilirubin NEG Urine Urobilinogen NEG Urine Leukocyte Esterase SMALL Urine WBC (Auto) 1-5 /hpf Urine RBC (Auto) 0-4 /hpf Urine Hyaline Casts (Auto) 1-5 /lpf Urine Epithelial Cells (Auto) >30 /lpf Urine Bacteria (Auto) NEG Urine Test NEG CSF Color COLORLESS CSF Appearance CLEAR CSF WBC 370 /uL CSF RBC 2 /uL CSF Polynuclear WBCs 9.0 % CSF Mononuclear WBCs 91.0 % CSF Xanthrochromic NO XANTHOCHROMIA CSF Cell Count Tube # 4 CSF Chemistry Tube # 2 CSF Glucose 54 mg/dl CSF Total Protein 66.3 mg/dl Giant Platelets 1+ Echinocytes 1+ Patient Name: FRANKLIN REDMAN Unit Number: [id number] Dictated: 10/01/161856 Transcribed: 10/01/161856 MS Printed Date/Time: [~ rep prt dt]/[~ rep prt tm] [~ rep ct labl] - [~ rep ct ivnm] [facility] [place] [address] Dictated: 10/01/161856 Transcribed: 10/01/161856 MS Printed Date/Time: [~ rep prt dt]/[~ rep prt tm] [~ rep ct labl] - [~ rep ct ivnm] HEAD CT NONCONTRAST CT DOSE: 844.62 mGy.cm HISTORY: Headache Pt c/o severe headache TECHNIQUE: Multiaxial CT images of the head were performed without the use of intravenous contrast. Comparison: 09/21/2013 Findings: The paranasal sinuses and mastoid air cells are clear. The calvarium and skull base are intact. The ventricles and sulci are within normal limits. There is no mass, hematoma, midline shift, or acute infarct. Impression: No acute intracranial abnormality. Electronically signed by: Asael Hendricks M.D. 10/01/2016 6:58 PM Dictated Date/Time: 10/01/2016 6:57 PM The status of this report is Signed. Draft = Not yet reviewed or approved by Radiologist. Signed = Reviewed and approved by Radiologist. <AttendingPhy></AttendingPhy> <FamilyPhy>Nuzhat Perales DO</FamilyPhy> < PrimaryPhy>Nuzhat Perales, DO</PrimaryPhy> <UnitNumber>[id number]</UnitNumber > <VisitNumber>[id number]</VisitNumber> <PatientName>FRANKLIN REDMAN</ PatientName> <DateOfBirth>1975</DateOfBirth> <Location>[facility]</Location> < ServiceDate>10/01/16</ServiceDate> <MNE>ESINDI</MNE> <OrderingPhy>Mega Hurst MD</OrderingPhy> <OrderingPhyMNE>f rep ord dr kimball</OrderingPhyMNE> < DictatingPhyMNE>f rep dict dr kimball</DictatingPhyMNE> <CCListMNE>f rep ct simie</ CCListMNE> <AdmittingPhyMNE>f pt admit dr kimball</AdmittingPhyMNE> <AttendingPhyMNE >f pt attend dr kimball</AttendingPhyMNE> <ConsultingPhyMNE>f pt consult dr kimball</ConsultingPhyMNE> <FamilyPhyMNE>f pt fam dr kimball</FamilyPhyMNE> <OtherPhyMNE>f pt other dr kimball</OtherPhyMNE> < PrimaryPhyMNE>f pt prim care dr kimball</PrimaryPhyMNE> <ReferringPhyMNE>f pt referring dr kimball</ReferringPhyMNE> Assessment & Plan 41 female with meningitis, clinical picture and CSF analysis most consistent with viral infection, most likely enteroviral, although Lyme and HSV also possible. Doubt bacterial infection. Will d/c levofloxacin, hopefully other Abx in next 24-48 hours. Have ordered Lyme serology. Will follow.
[2016-10-02 11:32] LABS: LYME DISEASE AB IGM NEG (NEG)
[2016-10-02 11:33] LABS: LYME DISEASE AB IGG NEG (NEG)
[2016-10-02] MEDS ORDERED: HYDROmorphone INJ 1 MG/ML SYR IV PRN (12:30)
[2016-10-02] MEDS ORDERED: HYDROmorphone HCL 0.5MG/ML 50 ML CASSETTE IV PRN (13:00)
[2016-10-02] MEDS: SODIUM CHLORIDE 0.9% 1000ML 1,000 ML IV SCH (14:13)
--- NOTE | 2016-10-02 15:08 | Family Medicine Progress Note ---
Progress Note Date of Service Oct 02, 2016. Subjective Pt evaluation today including: conversation w/ patient, physical exam, chart review, lab review, review of studies Pain: 8/10 pain radiating down her spine from her neck Voiding: no voiding problems, no incontinence Patient is resting in bed sitting upright this morning in moderate distress due to spinal pain she has been experiencing. The pain is a dull 8/10 pain along the spinal column and comes on an hour after the Dilaudid dose. She denies any headache, nausea, vomiting, photophobia. She does still appreciate neck stiffness. Additional information received from the patient is that she has a history of gastric bypass surgery. She also states that she was in the ICU last week and came into contact with a patient "with the same thing". 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 Constitutional: + fatigue, No chills, No fever, No sweats ENT: No sore throat Respiratory: No cough, No shortness of breath, No sputum, No wheezing Cardiovascular: No chest pain, No palpitations Abdomen: No diarrhea, No nausea, No pain, No vomiting Musculoskeletal: No calf pain, No joint pain Neurologic: No balance problems, No memory loss, No numbness/tingling, No vertigo, No weakness Additional Comments: Denies VILLARREAL Medications Current Inpatient Medications Medications (Trade) Dose Ordered Sig/Kalli Route Start Time Stop Time Status Last Admin Dose Admin Enoxaparin Sodium (Lovenox Inj) 40 mg Q24H SC 10/02/16 09:00 11/01/16 08:59 10/02/16 07:38 40 MG Acetaminophen (Tylenol Tab) 650 mg Q4H PRN PO 10/01/16 22:00 10/31/16 21:59 10/01/16 23:40 650 MG Al Hydrox/Mg Hydrox/Simethicone (Maalox Max Susp) 15 ml Q4H PRN PO 10/01/16 22:00 10/31/16 21:59 Magnesium Hydroxide (Milk Of Magnesia Susp) 30 ml Q12H PRN PO 10/01/16 22:00 10/31/16 21:59 Ondansetron HCl 4 mg 4 mg Q6H PRN IV 10/01/16 22:00 10/31/16 21:59 Vancomycin HCl 850 mg/Sodium Chloride 267 ml @ 125 mls/hr Q10H IV 10/02/16 04:00 10/12/16 03:59 10/02/16 03:38 125 MLS/HR Ceftriaxone Sodium 2000 mg/ Dextrose 70 ml @ 100 mls/hr Q12H IV 10/02/16 10:00 10/12/16 09:59 10/02/16 07:38 100 MLS/HR Acyclovir Sodium/ Dextrose (Zovirax Inj/D5 100ml) 111 ml @ 100 mls/hr Q8H IV 10/02/16 06:00 10/12/16 05:59 10/02/16 12:45 100 MLS/HR Levothyroxine Sodium (Synthroid Tab) 112 mcg DAILYBB PO 10/02/16 06:00 11/01/16 05:59 10/02/16 06:15 112 MCG Levothyroxine Sodium (Synthroid Tab) 200 mcg DAILYBB PO 10/02/16 06:00 11/01/16 05:59 10/02/16 06:15 200 MCG Multivitamins (Multivitamin Tab) 1 tab DAILY PO 10/02/16 09:00 11/01/16 08:59 10/02/16 07:38 1 TAB Pantoprazole Sodium (Protonix Tab) 40 mg BID PO 10/02/16 09:00 11/01/16 08:59 10/02/16 07:38 40 MG Vancomycin HCl 1 ea 1 ea UD PRN N/A 10/02/16 01:15 11/01/16 01:14 Levofloxacin 750 mg/Prmx 150 ml @ 100 mls/hr Q24H IV 10/02/16 22:00 10/12/16 21:59 Dexamethasone Sodium Phosphate 4 mg/Syringe 1 ml @ 1 mls/min Q6H IV 10/02/16 02:00 11/01/16 01:59 10/02/16 12:45 1 MLS/MIN Potassium Chloride/Sodium Chloride (Nss + 20meq KCl 1000ml) 1,000 ml @ 100 mls/hr Q10H IV 10/02/16 02:00 11/01/16 01:59 10/02/16 12:45 100 MLS/HR Fentanyl Citrate (Fentanyl Inj) 50 mcg Q2H PRN IV 10/02/16 04:30 10/16/16 04:29 10/02/16 04:55 50 MCG Hydromorphone HCl 25 mg 25 mg PRN PRN IV 10/02/16 13:15 10/16/16 13:14 Sodium Chloride (Nss 1000ml) 1,000 ml @ 15 mls/hr Q24H IV 10/02/16 13:15 11/01/16 13:14 Objective Vital Signs Date Time Temp Pulse Resp B/P Pulse Ox O2 Delivery O2 Flow Rate FiO2 10/02/16 12:00 Room Air 10/02/16 11:00 36.6 86 12 129/79 99 Room Air 10/02/16 08:00 Room Air 10/02/16 07:54 36.6 76 18 130/77 98 Room Air 10/02/16 07:00 78 22 114/81 98 Room Air 10/02/16 04:00 36.6 96 18 117/71 99 10/02/16 04:00 99 Room Air 10/02/16 03:00 81 17 116/70 97 10/02/16 02:00 88 16 109/68 99 10/02/16 01:00 98 17 87/61 99 10/02/16 00:28 36.4 72 21 98/63 99 Room Air 10/02/16 00:24 72 19 98/63 99 10/02/16 00:22 89 19 87/51 100 10/01/16 23:41 82 103/55 99 Room Air 10/01/16 21:46 85 16 124/77 99 Room Air 10/01/16 20:00 81 16 120/74 99 Room Air 10/01/16 18:13 100 Room Air 10/01/16 18:12 87 10/01/16 18:03 105 20 129/81 100 Room Air 10/01/16 16:16 37.3 100 18 119/81 100 Room Air Physical Exam General Appearance: WD/WN, + mild distress Eyes: normal inspection, PERRL, EOMI, sclerae normal Neck: supple, no carotid bruits, trachea midline Respiratory/Chest: chest non-tender, lungs clear, normal breath sounds, no respiratory distress, no accessory muscle use Cardiovascular: regular rate, rhythm, no edema, no gallop, no murmur Abdomen: normal bowel sounds, non tender, soft, no organomegaly Extremities: non-tender, normal inspection, no pedal edema, no calf tenderness Neurologic/Psychiatric: marking stitcher II-XII nml as tested, no motor/sensory deficits, alert, normal mood/affect, oriented x 3 Skin: normal color, warm/dry, no rash Laboratory Results Results Past 24 Hours Test 10/01/16 18:28 10/01/16 18:45 10/01/16 19:50 10/02/16 05:30 Range/Units White Blood Count 3.80 2.99 4.8-10.8 K/uL Red Blood Count 4.41 3.57 4.2-5.4 M/uL Hemoglobin 10.0 8.1 12.0-16.0 g/dL Hematocrit 31.6 26.0 37-47 % Mean Corpuscular Volume 71.7 72.8 80-100 fL Mean Corpuscular Hemoglobin 22.7 22.7 25-34 pg Mean Corpuscular Hemoglobin Concent 31.6 31.2 32-36 g/dl Platelet Count 245 170 130-400 K/uL Mean Platelet Volume 10.3 10.3 7.4-10.4 fL Neutrophils (%) (Auto) 60.5 83.3 % Lymphocytes (%) (Auto) 26.3 11.7 % Monocytes (%) (Auto) 11.3 4.7 % Eosinophils (%) (Auto) 1.6 0.0 % Basophils (%) (Auto) 0.3 0.0 % Neutrophils # (Auto) 2.30 2.49 1.4-6.5 K/uL Lymphocytes # (Auto) 1.00 0.35 1.2-3.4 K/uL Monocytes # (Auto) 0.43 0.14 0.11-0.59 K/uL Eosinophils # (Auto) 0.06 0.00 0-0.5 K/uL Basophils # (Auto) 0.01 0.00 0-0.2 K/uL RDW Standard Deviation 37.2 38.1 36.4-46.3 fL RDW Coefficient of Variation 14.2 14.3 11.5-14.5 % Immature Granulocyte % (Auto) 0.0 0.3 % Immature Granulocyte # (Auto) 0.00 0.01 0.00-0.02 K/uL Large Platelets 1+ Microcytosis PRESENT Prothrombin Time 12.9 9.0-12.0 SECONDS Prothromb Time International Ratio 1.2 0.9-1.1 Activated Partial Thromboplast Time 25.7 21.0-31.0 SECONDS Partial Thromboplastin Ratio 1.0 Sodium Level 141 143 136-145 mmol/L Potassium Level 3.7 4.3 3.5-5.1 mmol/L Chloride Level 108 114 98-107 mmol/L Carbon Dioxide Level 25 21 21-32 mmol/L Anion Gap 8.0 8.0 3-11 mmol/L Blood Urea Nitrogen 6 8 7-18 mg/dl Creatinine 0.67 0.56 0.60-1.20 mg/dl Est Creatinine Clear Calc Drug Dose 85.0 110.6 ml/min Estimated GFR () 128.3 136.1 Estimated GFR (Non- 110.7 117.5 BUN/Creatinine Ratio 8.7 15.1 10-20 Random Glucose 99 167 70-99 mg/dl Calcium Level 8.8 8.5 8.5-10.1 mg/dl Total Bilirubin 0.4 0.2-1 mg/dl Direct Bilirubin < 0.1 0-0.2 mg/dl Aspartate Amino Transf (AST/SGOT) 16 15-37 U/L Alanine Aminotransferase (ALT/SGPT) 16 12-78 U/L Alkaline Phosphatase 76 45-117 U/L Total Protein 7.4 6.4-8.2 gm/dl Albumin 3.7 3.4-5.0 gm/dl Monoscreen NEG NEG Urine Color DK YELLOW Urine Appearance CLOUDY CLEAR Urine pH 6.5 4.5-7.5 Urine Specific [place] 1.034 1.000-1.030 Urine Protein TRACE NEG Urine Glucose (UA) NEG NEG Urine Ketones TRACE NEG Urine Occult Blood NEG NEG Urine Nitrite NEG NEG Urine Bilirubin NEG NEG Urine Urobilinogen NEG NEG Urine Leukocyte Esterase SMALL NEG Urine WBC (Auto) 1-5 0-5 /hpf Urine RBC (Auto) 0-4 0-4 /hpf Urine Hyaline Casts (Auto) 1-5 0-5 /lpf Urine Epithelial Cells (Auto) >30 0-5 /lpf Urine Bacteria (Auto) NEG NEG Urine Test NEG NEG CSF Color COLORLESS CSF Appearance CLEAR CSF WBC 370 0-5 /uL CSF RBC 2 0 /uL CSF Polynuclear WBCs 9.0 % CSF Mononuclear WBCs 91.0 % CSF Xanthrochromic NO XANTHOCHROMIA CSF Cell Count Tube # 4 CSF Chemistry Tube # 2 CSF Glucose 54 40-70 mg/dl CSF Total Protein 66.3 15.0-45.0 mg/dl Giant Platelets 1+ Echinocytes 1+ Test 10/02/16 10:01 10/02/16 14:34 10/02/16 14:42 Range/Units Lyme Disease IgG Antibody NEG NEG Lyme Disease IgM Antibody NEG NEG Transferrin % Saturation 15-50 % Microbiology Results 10/01/16 Blood Culture, Received Pending 10/01/16 Blood Culture, Received Pending 10/01/16 Gram Stain - Final, Resulted 10/01/16 CSF Culture - Preliminary, Resulted NO GROWTH TO DATE. Assessment and Plan Patient is a 41 year old female with a 3 day history of VILLARREAL and neck stiffness. Her CSF results as well as clinical symptoms are suggestive of Viral Meningitis so she has been started on broad spectrum antibiotics and antivirals. Investigate CSF tests for viral etiology, blood cultures, and lyme titers are pending at this time. We have consulted ID and continue to observe the patient while awaiting more confirmatory testing. The patient also has a history of chronic iron deficiency anemia so we will order iron studies to further investigate. She also has a history of hypothyroidism thus we will order TSH/FT4 /FT3 studies. 1) Viral Meningitis - Most likely diagnosis due to CSF findings and clinical picture (VILLARREAL, Neck Stiffness, Photophobia) - CSF Results - Clear, Colourless, No xanthochromia - WBC - 370 (high) - Glucose - 54 - Protein 66.3 (high) - Pending CSF Tests - HSV PCR, EBV Abs - Lyme IgM and IgG negative - Blood culture pending - Empiric Antibiotic Coverage: Ceftriaxone, Vancomycin, Acyclovir - ID Consult - Stopped Levaquin, and will discontinue other antibiotics hopefully over next 24-48 hours due to low index of suspicion for bacterial etiology - Decadron 4mg IV q6h - Zofran 4mg IV q6h PRN - CT Head: No acute intracranial abnormalities 2) Anemia - Chronic Iron Deficiency Anemia - most likely 2/2 history of gastric bypass - Iron Studies: Ferritin, Iron, TIBC, Transferrin Pending 3) B12 Deficiency - History of B12 deficiency from history of gastric bypass - B12 level ordered - Folate level ordered 4) Hypothyroidism - Dose of 112mcg + 200mcg Synthroid daily 5) GI Prophylaxis - Protonix 40mg BID for GI protection while on high dose steroids 6) DVT Prophylaxis - Lovenox 7) Disposition - Telemetry 8) Code Status - Full Resuscitation History Resident Physician Supervision Note: I interviewed and examined the patient. Discussed with Dr. Valladares and agree with findings and plan as documented in the note. Any exceptions or clarifications are listed here: Patient states her headache is completely gone, but continues to have severe neck and back pain. I started her on a Dilaudid TRIAGE RN pump today. Afebrile, no other symptoms of upper respiratory infection present such as sore throat, rhinorrhea, no coughing. Vitals reviewed Appears to be in pain, is tearful at times HEENT-positive tenderness to palpation along spinous processes of the neck and spine, stiffness in the neck with nuchal rigidity Regular rate and rhythm, no murmurs, rubs Clear to auscultation bilaterally, breathing unlabored, no wheezes crackles or rhonchi Abdomen positive bowel sounds soft nontender nondistended Extremities no edema, 2 posterior cells pedis pulses Skin-no rashes Patient is a 41-year-old female with history of chronic iron and B12 deficiency anemia secondary to gastric bypass status, hypothyroidism, here with meningitis. Most likely viral meningitis based on CSF studies, is improving already on Decadron and empiric antibiotics for bacterial meningitis as well as HSV coverage. -Follow up CSF cultures and Lyme serology as well as Lyme PCR and HSV PCR in the CSF -Continue pain control -Appreciate ID consult-we will discontinue Levaquin now Hypothyroidism-TSH was 120 in April 2016, however despite her extremely high dose of levothyroxine, she was not likely absorbing it very well and now that she has been educated on that, her TSH is now undetectable-we'll lower her dose to 112 daily for now and recommend recheck of TSH in 2-3 weeks Anemia-severe iron deficiency anemia with ferritin of 3, secondary to poor absorption and gastric bypass status. Her B12 and folate levels are acceptable. -She will need IV iron if she cannot tolerate liquid iron supplementation-we'll discuss in the morning Documented By: Chloe Dillon
[2016-10-02] MEDS: HYDROmorphone HCL 0.5MG/ML 50 ML CASSETTE IV PRN (15:40)
[2016-10-02 15:43] LABS: FERRITIN 3.6 ng/ml (8.0-388.0); THYROID STIMULATING HORMONE < 0.005 uIu/ml (0.300-4.500); TOTAL IRON BINDING CAPACITY 333 mcg/dl (250-450)
[2016-10-02] MEDS ORDERED: LEVOFLOXACIN / D5W 750 MG in PREMIXED IN D5W 150 ML IV SCH (22:00)
[2016-10-02] MEDS ORDERED: VANCOMYCIN TROUGH SCH (23:30)
[2016-10-03] MEDS: ACYCLOVIR SOD INJ 550 MG in DEXTROSE 5% 100ML 100 ML IV SCH ×4 (00:48→20:54)
[2016-10-03] MEDS: VANCOMYCIN INJ 850 MG in SODIUM CHLORIDE 0.9% 250ML 250 ML IV SCH (02:06)
[2016-10-03] MEDS: DEXAMETHASONE INJ 4 MG in SYRINGE 0 ML IV SCH ×4 (02:07→20:53)
[2016-10-03 03:38] VITALS: BP 109/61; PULSE 89; TEMP 36.6; O2SAT 98
[2016-10-03] MEDS: LEVOTHYROXINE 112 MCG TAB PO SCH (06:04)
[2016-10-03] MEDS: FENTANYL CITRATE INJ 50 MCG/1 ML 2 ML VIAL IV PRN ×3 (06:07→22:01)
[2016-10-03 07:54] LABS: BUN/CREATININE RATIO 8.8 (10-20); CALCIUM 8.8 mg/dl (8.5-10.1); CREATININE 0.62 mg/dl (0.60-1.20); POTASSIUM 3.9 mmol/L (3.5-5.1)
[2016-10-03 07:57] VITALS: BP 125/81; PULSE 81; TEMP 36.7; O2SAT 99
[2016-10-03] MEDS ORDERED: VANCOMYCIN INJ 1,000 MG in SODIUM CHLORIDE 0.9% 250ML 250 ML IV SCH (08:00)
[2016-10-03] MEDS: PANTOprazole SOD 40 MG TAB PO SCH ×2 (08:10→20:53)
[2016-10-03] MEDS: MULTIVITAMIN TAB PO SCH (08:10)
[2016-10-03] MEDS: ENOXAPARIN 40 MG/0.4 ML SYR SC SCH (08:11)
[2016-10-03 08:15] LABS: HEMATOCRIT 29.4 % (37-47); MEAN CELL VOLUME 73.1 fL (80-100); MEAN CORPUSCULAR HEMOGLOBIN 22.6 pg (25-34); MEAN PLATELET VOLUME 11.2 fL (7.4-10.4); PLATELET COUNT 190 K/uL (130-400); RED BLOOD COUNT 4.02 M/uL (4.2-5.4); WHITE BLOOD COUNT 7.47 K/uL (4.8-10.8)
[2016-10-03] MEDS: CEFTRIAXONE SOD INJ 2,000 MG in DEXTROSE 5% 50ML 50 ML IV SCH ×2 (11:08→20:54)
[2016-10-03 11:30] VITALS: BP 126/83; PULSE 73; TEMP 36.8; O2SAT 99
[2016-10-03] MEDS: SODIUM CHLORIDE 0.9% 1000ML 1,000 ML IV SCH (13:15)
--- NOTE | 2016-10-03 13:19 | Infectious Disease Progress Nt ---
Progress Note Date of Service Oct 03, 2016. Subjective Pt evaluation today including: conversation w/ patient, physical exam, chart review, lab review, review of studies, conversation w/ php consultant, review of inpatient medication list C/O worse headache today. On POLICY SERVICE COORDINATOR pump. All cultures remain negative. Lyme Abs negative. All Other Systems: Reviewed and Negative Medications Current Inpatient Medications Medications (Trade) Dose Ordered Sig/Kalli Route Start Time Stop Time Status Last Admin Dose Admin Enoxaparin Sodium (Lovenox Inj) 40 mg Q24H SC 10/02/16 09:00 11/01/16 08:59 10/03/16 08:11 40 MG Acetaminophen (Tylenol Tab) 650 mg Q4H PRN PO 10/01/16 22:00 10/31/16 21:59 10/01/16 23:40 650 MG Al Hydrox/Mg Hydrox/Simethicone (Maalox Max Susp) 15 ml Q4H PRN PO 10/01/16 22:00 10/31/16 21:59 Magnesium Hydroxide (Milk Of Magnesia Susp) 30 ml Q12H PRN PO 10/01/16 22:00 10/31/16 21:59 Ondansetron HCl 4 mg 4 mg Q6H PRN IV 10/01/16 22:00 10/31/16 21:59 Ceftriaxone Sodium 2000 mg/ Dextrose 70 ml @ 100 mls/hr Q12H IV 10/02/16 10:00 10/12/16 09:59 10/03/16 11:08 100 MLS/HR Acyclovir Sodium/ Dextrose (Zovirax Inj/D5 100ml) 111 ml @ 100 mls/hr Q8H IV 10/02/16 06:00 10/12/16 05:59 10/03/16 06:05 100 MLS/HR Levothyroxine Sodium (Synthroid Tab) 112 mcg DAILYBB PO 10/02/16 06:00 11/01/16 05:59 10/03/16 06:04 112 MCG Multivitamins (Multivitamin Tab) 1 tab DAILY PO 10/02/16 09:00 11/01/16 08:59 10/03/16 08:10 1 TAB Pantoprazole Sodium (Protonix Tab) 40 mg BID PO 10/02/16 09:00 11/01/16 08:59 10/03/16 08:10 40 MG Vancomycin HCl 1 ea 1 ea UD PRN N/A 10/02/16 01:15 11/01/16 01:14 Dexamethasone Sodium Phosphate 4 mg/Syringe 1 ml @ 1 mls/min Q6H IV 10/02/16 02:00 11/01/16 01:59 10/03/16 08:10 1 MLS/MIN Potassium Chloride/Sodium Chloride (Nss + 20meq KCl 1000ml) 1,000 ml @ 100 mls/hr Q10H IV 10/02/16 02:00 11/01/16 01:59 10/02/16 12:45 100 MLS/HR Fentanyl Citrate (Fentanyl Inj) 50 mcg Q2H PRN IV 10/02/16 04:30 10/16/16 04:29 10/03/16 11:09 50 MCG Hydromorphone HCl 25 mg 25 mg PRN PRN IV 10/02/16 13:15 10/16/16 13:14 10/02/16 15:40 25 MG Sodium Chloride (Nss 1000ml) 1,000 ml @ 15 mls/hr Q24H IV 10/02/16 13:15 11/01/16 13:14 Objective Vital Signs Date Time Temp Pulse Resp B/P Pulse Ox O2 Delivery O2 Flow Rate FiO2 10/03/16 12:00 Room Air 10/03/16 11:30 36.8 73 16 126/83 99 Room Air 10/03/16 08:00 Room Air 10/03/16 07:57 36.7 81 16 125/81 99 Room Air 10/03/16 04:00 Room Air 10/03/16 03:38 36.6 89 16 109/61 98 Room Air 10/02/16 23:59 Room Air 10/02/16 23:18 36.7 82 18 115/72 100 Room Air 10/02/16 20:00 Room Air 10/02/16 19:39 36.7 87 18 121/81 99 Room Air 10/02/16 16:00 Room Air 10/02/16 16:00 36.6 85 20 97 Room Air 10/02/16 14:58 86 14 125/75 98 Room Air Physical Exam General Appearance: WD/WN, no apparent distress Eyes: normal inspection, EOMI, sclerae normal ENT: normal ENT inspection, pharynx normal Neck: thyroid normal, trachea midline, + pertinent finding (neck stiffness) Respiratory/Chest: chest non-tender, lungs clear, normal breath sounds, no respiratory distress Cardiovascular: regular rate, rhythm, no gallop, no murmur Abdomen: normal bowel sounds, non tender, soft, no organomegaly Extremities: non-tender, no calf tenderness Neurologic/Psychiatric: no motor/sensory deficits, alert, oriented x 3 Skin: normal color, warm/dry, no rash Lymphatic: no adenopathy Laboratory Results RUN DATE: 10/03/16 [facility] LAB PAGE 1 RUN TIME: 945 Specimen Inquiry PATIENT: FRANKLIN REDMAN LOC: [facility] U # : [id number] AGE/SX: 41/F ROOM: [facility] REG : 10/01/[address]: Jaycob Purdy M.D : 1975 BED: 1 DIS : STATUS: ADM IN TLOC: SPEC #: [id number] MATTIE: 10/01/16 STATUS: RES REQ #: [id number] RECD: 10/01/[address]: Mega Hurst MD SOURCE: CSF ENTR: 10/01/[address] [facility] [address]: Nuzhat Perales DO SPDESC: ORDERED: CSF CULT/SMR COMMENTS: Comments to Hand Tennis Ball Coverer TUBE # 3 TUBE # TO USE FOR SPINAL FLUID CELL CULTURE= 3 Procedure Result Verified Site GRAM STAIN Final 10/01/16-2100 RESULT FEW WBCs SEEN NO ORGANISMS SEEN CSF CULTURE Preliminary 10/03/16 NO GROWTH TO DATE. Last 24 Hours Test 10/02/16 14:55 10/02/16 23:25 10/03/16 06:23 Iron Level 10 mcg/dl Total Iron Binding Capacity 333 mcg/dl Transferrin 257 mg/dl Transferrin % Saturation 3 % Ferritin 3.6 ng/ml Vitamin B12 Level 384 pg/mL Folate 9.26 ng/mL Thyroid Stimulating Hormone (TSH) < 0.005 uIu/ml Free Thyroxine 2.61 ng/dl Free Triiodothyronine 3.35 pg/ml Vancomycin Level Trough 8.0 mcg/ml White Blood Count 7.47 K/uL Red Blood Count 4.02 M/uL Hemoglobin 9.1 g/dL Hematocrit 29.4 % Mean Corpuscular Volume 73.1 fL Mean Corpuscular Hemoglobin 22.6 pg Mean Corpuscular Hemoglobin Concent 31.0 g/dl RDW Standard Deviation 38.7 fL RDW Coefficient of Variation 14.5 % Platelet Count 190 K/uL Mean Platelet Volume 11.2 fL Sodium Level 142 mmol/L Potassium Level 3.9 mmol/L Chloride Level 109 mmol/L Carbon Dioxide Level 24 mmol/L Anion Gap 9.0 mmol/L Blood Urea Nitrogen 5 mg/dl Creatinine 0.62 mg/dl Est Creatinine Clear Calc Drug Dose 100.2 ml/min Estimated GFR () 131.6 Estimated GFR (Non- 113.6 BUN/Creatinine Ratio 8.8 Random Glucose 125 mg/dl Calcium Level 8.8 mg/dl Assessment and Plan 41 female with meningitis, clinical picture and CSF analysis most consistent with viral infection, most likely enteroviral, HSV also possible. Awaiting PCR for HSV. Isolation discontinued. Will likely d/c Abx after today if cultures remain negative. Will follow.
[2016-10-03] MEDS ORDERED: NURSING VERBAL MED ORDER ONE (15:15)
[2016-10-03 15:40] VITALS: BP 134/84; PULSE 66; TEMP 36.4; O2SAT 100
--- NOTE | 2016-10-03 15:56 | Pharmacy Progress Note ---
Pharmacy Progress Note Date of Service Oct 03, 2016. Progress Note A: * 41y/o who is being treated for meningitis with ceftriaxone, vancomycin, and acyclovir * vancomycin level subtherapeutic at 8mcg/mL P: * increase vancomycin to 1000mg IV every 8 hours * re-check trough at steady state
[2016-10-03] MEDS: HYDROmorphone HCL 0.5MG/ML 50 ML CASSETTE IV PRN ×2 (16:10→19:00)
[2016-10-03] MEDS: NSS + 20MEQ KCL 1000ML 1,000 ML IV SCH ×2 (16:12→18:00)
[2016-10-03] MEDS: VANCOMYCIN INJ 1,000 MG in SODIUM CHLORIDE 0.9% 250ML 250 ML IV SCH ×2 (17:21→23:48)
[2016-10-03] MEDS: ONDANSETRON INJ 2 MG/ML 2 ML VIAL IV PRN (17:39)
[2016-10-03 19:00] VITALS: BP 126/79; PULSE 69; TEMP 37; O2SAT 98
--- NOTE | 2016-10-03 19:46 | Family Medicine Progress Note ---
Progress Note Date of Service Oct 03, 2016. Subjective Pt evaluation today including: conversation w/ patient, physical exam, chart review, lab review, review of studies Pain: Patient complains of headache and back pain this morning, 01/31 Voiding: no voiding problems Patient is complaining of a headache and back pain this morning. She states that the headache is frontal and behind the eyes bilaterally. She also complains of photophobia and neck stiffness but denies any vision changes, nausea, or vomiting. She has been falling asleep and waking up in pain while in the meantime having a [employer] pump on board. Constitutional: No chills, No fever, No sweats Eyes: No diplopia, No worsening of vision Respiratory: No cough, No shortness of breath, No sputum, No wheezing Cardiovascular: No chest pain Abdomen: No constipation, No diarrhea, No nausea, No pain, No vomiting Musculoskeletal: No joint pain Neurologic: No balance problems, No numbness/tingling, No weakness Skin: No rash Medications Current Inpatient Medications Medications (Trade) Dose Ordered Sig/Kalli Route Start Time Stop Time Status Last Admin Dose Admin Enoxaparin Sodium (Lovenox Inj) 40 mg Q24H SC 10/02/16 09:00 11/01/16 08:59 10/03/16 08:11 40 MG Acetaminophen (Tylenol Tab) 650 mg Q4H PRN PO 10/01/16 22:00 10/31/16 21:59 10/01/16 23:40 650 MG Al Hydrox/Mg Hydrox/Simethicone (Maalox Max Susp) 15 ml Q4H PRN PO 10/01/16 22:00 10/31/16 21:59 Magnesium Hydroxide (Milk Of Magnesia Susp) 30 ml Q12H PRN PO 10/01/16 22:00 10/31/16 21:59 Ondansetron HCl 4 mg 4 mg Q6H PRN IV 10/01/16 22:00 10/31/16 21:59 10/03/16 17:39 4 MG Ceftriaxone Sodium 2000 mg/ Dextrose 70 ml @ 100 mls/hr Q12H IV 10/02/16 10:00 10/12/16 09:59 10/03/16 11:08 100 MLS/HR Acyclovir Sodium/ Dextrose (Zovirax Inj/D5 100ml) 111 ml @ 100 mls/hr Q8H IV 10/02/16 06:00 10/12/16 05:59 10/03/16 16:13 100 MLS/HR Levothyroxine Sodium (Synthroid Tab) 112 mcg DAILYBB PO 10/02/16 06:00 11/01/16 05:59 10/03/16 06:04 112 MCG Multivitamins (Multivitamin Tab) 1 tab DAILY PO 10/02/16 09:00 11/01/16 08:59 10/03/16 08:10 1 TAB Pantoprazole Sodium (Protonix Tab) 40 mg BID PO 10/02/16 09:00 11/01/16 08:59 10/03/16 08:10 40 MG Vancomycin HCl 1 ea 1 ea UD PRN N/A 10/02/16 01:15 11/01/16 01:14 Dexamethasone Sodium Phosphate 4 mg/Syringe 1 ml @ 1 mls/min Q6H IV 10/02/16 02:00 11/01/16 01:59 10/03/16 16:13 1 MLS/MIN Potassium Chloride/Sodium Chloride (Nss + 20meq KCl 1000ml) 1,000 ml @ 100 mls/hr Q10H IV 10/02/16 02:00 11/01/16 01:59 10/03/16 16:12 100 MLS/HR Fentanyl Citrate (Fentanyl Inj) 50 mcg Q2H PRN IV 10/02/16 04:30 10/16/16 04:29 10/03/16 11:09 50 MCG Hydromorphone HCl 25 mg 25 mg PRN PRN IV 10/02/16 13:15 10/16/16 13:14 10/03/16 19:00 25 MG Sodium Chloride 1,000 ml @ 15 mls/hr Q24H IV 10/02/16 13:15 11/01/16 13:14 Vancomycin HCl 1000 mg/Sodium Chloride 270 ml @ 125 mls/hr Q8H IV 10/03/16 16:00 10/13/16 15:59 10/03/16 17:21 125 MLS/HR Iron Sucrose/ Sodium Chloride (Venofer Inj/Nss 100ml) 105 ml @ 420 mls/hr DAILY IV 10/04/16 09:00 10/07/16 08:59 Objective Vital Signs Date Time Temp Pulse Resp B/P Pulse Ox O2 Delivery O2 Flow Rate FiO2 10/03/16 16:00 Room Air 10/03/16 15:40 36.4 66 18 134/84 100 Room Air 10/03/16 12:00 Room Air 10/03/16 11:30 36.8 73 16 126/83 99 Room Air 10/03/16 08:00 Room Air 10/03/16 07:57 36.7 81 16 125/81 99 Room Air 10/03/16 04:00 Room Air 10/03/16 03:38 36.6 89 16 109/61 98 Room Air 10/02/16 23:59 Room Air 10/02/16 23:18 36.7 82 18 115/72 100 Room Air 10/02/16 20:00 Room Air 10/02/16 19:39 36.7 87 18 121/81 99 Room Air Physical Exam General Appearance: WD/WN, + mild distress Eyes: PERRL, EOMI, sclerae normal Neck: supple, no carotid bruits, trachea midline, + pertinent finding (pain with lateral flexion, extension of neck) Respiratory/Chest: chest non-tender, lungs clear, normal breath sounds, no respiratory distress, no accessory muscle use Cardiovascular: regular rate, rhythm, no edema, no gallop, no murmur Abdomen: normal bowel sounds, non tender, soft Extremities: no pedal edema, no calf tenderness Neurologic/Psychiatric: alert, normal mood/affect, oriented x 3 Laboratory Results Results Past 24 Hours Test 10/02/16 23:25 10/03/16 06:23 Range/Units Vancomycin Level Trough 8.0 SEE COMMENT mcg/ml White Blood Count 7.47 4.8-10.8 K/uL Red Blood Count 4.02 4.2-5.4 M/uL Hemoglobin 9.1 12.0-16.0 g/dL Hematocrit 29.4 37-47 % Mean Corpuscular Volume 73.1 80-100 fL Mean Corpuscular Hemoglobin 22.6 25-34 pg Mean Corpuscular Hemoglobin Concent 31.0 32-36 g/dl RDW Standard Deviation 38.7 36.4-46.3 fL RDW Coefficient of Variation 14.5 11.5-14.5 % Platelet Count 190 130-400 K/uL Mean Platelet Volume 11.2 7.4-10.4 fL Sodium Level 142 136-145 mmol/L Potassium Level 3.9 3.5-5.1 mmol/L Chloride Level 109 98-107 mmol/L Carbon Dioxide Level 24 21-32 mmol/L Anion Gap 9.0 3-11 mmol/L Blood Urea Nitrogen 5 7-18 mg/dl Creatinine 0.62 0.60-1.20 mg/dl Est Creatinine Clear Calc Drug Dose 100.2 ml/min Estimated GFR () 131.6 Estimated GFR (Non- 113.6 BUN/Creatinine Ratio 8.8 10-20 Random Glucose 125 70-99 mg/dl Calcium Level 8.8 8.5-10.1 mg/dl Assessment and Plan Patient is a 41 year old female with a 3 day history of VILLARREAL and neck stiffness 1) Viral Meningitis - Most likely diagnosis due to CSF findings and clinical picture (VILLARREAL, Neck Stiffness, Photophobia) - CSF Results - Clear, Colourless, No xanthochromia - WBC - 370 (high) - Glucose - 54 - Protein 66.3 (high) - Final CSF Culture - Final gram stain negative and growth negative - Pending CSF Tests - HSV PCR, EBV Abs - Lyme IgM and IgG negative - Blood culture pending - preliminarily now growth - Empiric Antibiotic Coverage: Ceftriaxone, Vancomycin, Acyclovir - ID Consult - Stopped Levaquin, Plan to d/c other antibiotics tomorrow - Decadron 4mg IV q6h - Zofran 4mg IV q6h PRN - CT Head: No acute intracranial abnormalities - Pain control - 50mcg Fentanyl IV this morning - Dilaudid 0.5mg continuous 1hr + 0.25 Dilaudid q15 mins through [employer] 2) Iron Deficiency Anemia 2/2 poor absorption from gastric bypass surgery - Iron Studies: Very low ferritin - 3.6 --> Does not absorb iron tabs well so will discuss with Hematology the use of liquid or IV iron - Hgb Improved today - 9.1 3) B12 Deficiency - History of B12 deficiency from history of gastric bypass - B12 normal - Folate normal 4) Hypothyroidism - On admission was on dose of 112mcg + 200mcg Synthroid daily, due to poor control likely due to taking synthroid improperly - Adjusted dose to now 112mcg - TSH < 0.005 - Follow TSH as outpatient 5) GI Prophylaxis - Protonix 40mg BID for GI protection while on high dose steroids 6) DVT Prophylaxis - Lovenox 7) Disposition - Telemetry 8) Code Status - Full Resuscitation History Resident Physician Supervision Note: I interviewed and examined the patient. Discussed with Dr. Valladares and agree with findings and plan as documented in the note. Any exceptions or clarifications are listed here: Still with neck pain, actively having nausea and vomiting when I saw her today which she did not have before, in the past she has tolerated opioids without nausea or vomiting Vitals reviewed Appears to be in pain, is tearful at times HEENT-positive tenderness to palpation along spinous processes of the neck and spine, stiffness in the neck with improved nuchal rigidity Regular rate and rhythm, no murmurs, rubs Clear to auscultation bilaterally, breathing unlabored, no wheezes crackles or rhonchi Abdomen positive bowel sounds soft nontender nondistended Extremities no edema, 2 posterior cells pedis pulses Skin-no rashes Patient is a 41-year-old female with history of chronic iron and B12 deficiency anemia secondary to gastric bypass status, hypothyroidism, here with meningitis. Most likely viral meningitis based on CSF studies, is improving already on Decadron and empiric antibiotics for bacterial meningitis as well as HSV coverage. -No growth in CSF cultures, Lyme serology in serum negative, Lyme PCR and HSV PCR in the CSF still pending-can stop antibiotics tomorrow and stop Decadron -Continue pain control -Appreciate ID consult Hypothyroidism-TSH was 120 in April 2016, however despite her extremely high dose of levothyroxine, she was not likely absorbing it very well and now that she has been educated on that, her TSH is now undetectable-we'll lower her dose to 112 daily for now and recommend recheck of TSH in 2-3 weeks Anemia-hemoglobin 9 today, severe iron deficiency anemia with ferritin of 3, secondary to poor absorption and gastric bypass status. Her B12 and folate levels are acceptable. -Begin IV iron then for 100 mg IV daily 3 days, then follow up with hematology as outpatient Documented By: Chloe Dillon
[2016-10-03 23:36] VITALS: BP 118/70; PULSE 70; TEMP 36.6; O2SAT 98
[2016-10-04] MEDS: DEXAMETHASONE INJ 4 MG in SYRINGE 0 ML IV SCH ×2 (02:16→09:08)
[2016-10-04] MEDS: NSS + 20MEQ KCL 1000ML 1,000 ML IV SCH ×2 (04:00→09:12)
[2016-10-04 04:18] VITALS: BP 109/70; PULSE 72; TEMP 36.6; O2SAT 99
[2016-10-04] MEDS: LEVOTHYROXINE 112 MCG TAB PO SCH (05:36)
[2016-10-04] MEDS: ACYCLOVIR SOD INJ 550 MG in DEXTROSE 5% 100ML 100 ML IV SCH (05:36)
[2016-10-04 07:31] LABS: HEMATOCRIT 26.5 % (37-47); MEAN CELL VOLUME 71.6 fL (80-100); MEAN CORPUSCULAR HEMOGLOBIN 22.4 pg (25-34); MEAN CORPUSCULAR HGB CONC 31.3 g/dl (32-36); PLATELET COUNT 178 K/uL (130-400)
[2016-10-04 08:27] LABS: CREATININE 0.49 mg/dl (0.60-1.20)
[2016-10-04] MEDS ORDERED: IRON SUCROSE INJ 100 MG in SODIUM CHLORIDE 0.9% 100ML 100 ML IV SCH (09:00)
[2016-10-04] MEDS: VANCOMYCIN INJ 1,000 MG in SODIUM CHLORIDE 0.9% 250ML 250 ML IV SCH (09:02)
[2016-10-04] MEDS: MULTIVITAMIN TAB PO SCH (09:09)
[2016-10-04] MEDS: PANTOprazole SOD 40 MG TAB PO SCH (09:09)
[2016-10-04] MEDS: ENOXAPARIN 40 MG/0.4 ML SYR SC SCH (09:10)
--- NOTE | 2016-10-04 09:43 | Infectious Disease Progress Nt ---
Progress Note Date of Service Oct 04, 2016. Subjective Pt evaluation today including: conversation w/ patient, physical exam, chart review, lab review, review of studies, conversation w/ network relations consultant, review of inpatient medication list Feeling much better this AM. Headache improved, no photophobia. Remains afebrile. All cultures negative. All Other Systems: Reviewed and Negative Medications Current Inpatient Medications Medications (Trade) Dose Ordered Sig/Kalli Route Start Time Stop Time Status Last Admin Dose Admin Enoxaparin Sodium (Lovenox Inj) 40 mg Q24H SC 10/02/16 09:00 11/01/16 08:59 10/04/16 09:10 40 MG Acetaminophen (Tylenol Tab) 650 mg Q4H PRN PO 10/01/16 22:00 10/31/16 21:59 10/01/16 23:40 650 MG Al Hydrox/Mg Hydrox/Simethicone (Maalox Max Susp) 15 ml Q4H PRN PO 10/01/16 22:00 10/31/16 21:59 Magnesium Hydroxide (Milk Of Magnesia Susp) 30 ml Q12H PRN PO 10/01/16 22:00 10/31/16 21:59 Ondansetron HCl 4 mg 4 mg Q6H PRN IV 10/01/16 22:00 10/31/16 21:59 10/03/16 17:39 4 MG Acyclovir Sodium/ Dextrose (Zovirax Inj/D5 100ml) 111 ml @ 100 mls/hr Q8H IV 10/02/16 06:00 10/12/16 05:59 10/04/16 05:36 100 MLS/HR Levothyroxine Sodium (Synthroid Tab) 112 mcg DAILYBB PO 10/02/16 06:00 11/01/16 05:59 10/04/16 05:36 112 MCG Multivitamins (Multivitamin Tab) 1 tab DAILY PO 10/02/16 09:00 11/01/16 08:59 10/04/16 09:09 1 TAB Pantoprazole Sodium 40 mg 40 mg BID PO 10/02/16 09:00 11/01/16 08:59 10/04/16 09:09 40 MG Dexamethasone Sodium Phosphate 4 mg/Syringe 1 ml @ 1 mls/min Q6H IV 10/02/16 02:00 11/01/16 01:59 10/04/16 09:08 1 MLS/MIN Potassium Chloride/Sodium Chloride (Nss + 20meq KCl 1000ml) 1,000 ml @ 100 mls/hr Q10H IV 10/02/16 02:00 11/01/16 01:59 10/04/16 09:12 100 MLS/HR Fentanyl Citrate (Fentanyl Inj) 50 mcg Q2H PRN IV 10/02/16 04:30 10/16/16 04:29 10/03/16 22:01 50 MCG Hydromorphone HCl 25 mg 25 mg PRN PRN IV 10/02/16 13:15 10/16/16 13:14 10/03/16 19:00 25 MG Sodium Chloride 1,000 ml @ 15 mls/hr Q24H IV 10/02/16 13:15 11/01/16 13:14 Iron Sucrose/ Sodium Chloride (Venofer Inj/Nss 100ml) 105 ml @ 420 mls/hr DAILY IV 10/04/16 09:00 10/07/16 08:59 Objective Vital Signs Date Time Temp Pulse Resp B/P Pulse Ox O2 Delivery O2 Flow Rate FiO2 10/04/16 08:00 Room Air 10/04/16 04:18 36.6 72 18 109/70 99 Room Air 10/04/16 04:00 Room Air 10/04/16 00:00 Room Air 10/03/16 23:36 36.6 70 20 118/70 98 Room Air 10/03/16 20:00 Room Air 10/03/16 19:00 37.0 69 18 126/79 98 Room Air 10/03/16 16:00 Room Air 10/03/16 15:40 36.4 66 18 134/84 100 Room Air 10/03/16 12:00 Room Air 10/03/16 11:30 36.8 73 16 126/83 99 Room Air Physical Exam General Appearance: WD/WN, no apparent distress Eyes: normal inspection, EOMI, sclerae normal ENT: normal ENT inspection, pharynx normal Neck: supple, no adenopathy, trachea midline Respiratory/Chest: lungs clear, normal breath sounds, no respiratory distress Cardiovascular: regular rate, rhythm, no gallop, no murmur Abdomen: normal bowel sounds, non tender, soft, no organomegaly Extremities: non-tender, no calf tenderness Neurologic/Psychiatric: alert, normal mood/affect, oriented x 3 Skin: normal color, warm/dry, no rash Lymphatic: no adenopathy Laboratory Results Last 24 Hours Test 10/04/16 06:33 White Blood Count 8.00 K/uL Red Blood Count 3.70 M/uL Hemoglobin 8.3 g/dL Hematocrit 26.5 % Mean Corpuscular Volume 71.6 fL Mean Corpuscular Hemoglobin 22.4 pg Mean Corpuscular Hemoglobin Concent 31.3 g/dl RDW Standard Deviation 37.4 fL RDW Coefficient of Variation 14.4 % Platelet Count 178 K/uL Mean Platelet Volume 11.0 fL Creatinine 0.49 mg/dl Est Creatinine Clear Calc Drug Dose 131.0 ml/min Estimated GFR () 142.2 Estimated GFR (Non- 122.7 Assessment and Plan 41 female with meningitis, clinical picture and CSF analysis most consistent with viral infection, most likely enteroviral, HSV less likely. Have discontinued antibiotics, see no contraindication to discharge home from ID standpoint.
[2016-10-04] MEDS ORDERED: HYDROmorphone HCL 2 MG TAB PO PRN ×2 (11:30→19:30)
[2016-10-04 11:57] VITALS: BP 138/81; PULSE 64; TEMP 36.5; O2SAT 98
[2016-10-04 12:14] LABS: EBV EARLY ANTIGEN AB 1.24 INDEX; EPSTEIN BARR VIR CAPSID IGG 2.74 INDEX
[2016-10-04 15:52] VITALS: BP 127/71; PULSE 55; TEMP 36.6; O2SAT 98
[2016-10-04] MEDS ORDERED: HYDROmorphone HCL 2 MG TAB PO ONE (16:30)
[2016-10-04] MEDS: ONDANSETRON INJ 2 MG/ML 2 ML VIAL IV PRN (18:01)
[2016-10-04] MEDS ORDERED: HYDR2TAB3 PO ×2 (18:46→18:49)
--- NOTE | 2016-10-04 18:58 | Discharge Instructions ---
Discharge Instructions Date of Service Oct 04, 2016. Admission Reason for Admission: Intractable Headache, Viral Meningitis Discharge Discharge Diagnosis / Problem: Viral Encephalitis Discharge Goals Goal(s): Decrease discomfort, Improve function Activity Recommendations Activity Limitations: per Instructions/Follow-up section Lifting Limitations: gradually increase as tolerated Exercise/Sports Limitations: as tolerated Shower/Bathe: no limitations Driving or Machine Use: no limitations . Instructions / Follow-Up Instructions / Follow-Up Please, follow up with Dr. Nuzhat Perales on SaturdayOctober 10 at 10:20 am. - Make sure to mention during your appointment that your TSH level (thyroid hormone level) needs to be checked in 2 weeks because of the change we made to your thyroxine dose Please, follow up with Dr. Mayberry (hematology) on SaturdayOctober 22 at 9:00 am. Take Dilaudid as needed for you pain Resume your other home medications EXCEPT the 200 mcg of Thyroxine which we have stopped. ONLY take the 112mcg dose of Thyroxine as instructed If you have having any worsening of symptoms that brought you into the hospital , or any concerning symptoms like severe headache, nausea, vomiting, changes in vision, worsening back pain, fevers, blood in vomit or stool, confusion, delirium, or any other concerning symptoms please contact your doctor or return to the emergency department for evaluation. Current Hospital Diet Patient's current hospital diet: Regular Diet Discharge Diet Recommended Diet: Regular Diet Procedures Procedures Performed: Lumbar Puncture CT Scan of the Head Pending Studies Studies pending at discharge: no Medical Emergencies . Who to Call and When: Medical Emergencies: If at any time you feel your situation is an emergency, please call 911 immediately. . Non-Emergent Contact Non-Emergency issues call your: Primary Care Provider . . "Provider Documentation" section prepared by Shawn Valladares. VTE Core Measure Inpt VTE Proph given/why not?: SCD's [place] Drug Monitoring Program Search Results: patient reviewed within database
[2016-10-04 19:31] VITALS: BP 127/71; PULSE 55; TEMP 36.6; O2SAT 98
[2016-10-04 22:36] LABS: HSV TYPE 1 DNA Not Detected (Not Detected); HSV TYPE 1&2 DNA SOURCE CSF; HSV TYPE 2 DNA Detected (Not Detected)
[2016-10-05] MEDS ORDERED: VALA1TAB31 PO (20:08)
--- NOTE | 2016-10-05 20:32 | Discharge Summary ---
Discharge Summary Date of Service Oct 05, 2016. (Shawn Valladares MD) Discharge Summary Admission Date: Oct 01, 2016 at 22:05 Discharge Date: Oct 04, 2016 Discharge Disposition: Home Principal Diagnosis: Viral Encephalitis Problems/Secondary Diagnoses: Hypothyroidism Anemia Immunizations: Have You Had Influenza Vaccine: Yes Influenza Vaccine Date: Mar 31, 2010 History of Tetanus Vaccine?: Yes History of Pneumococcal: No History of Hepatitis B Vaccine: No (Shawn Valladares MD) Medication Reconciliation New Medications: Valacyclovir Hcl (Valtrex) 1 Gm Tab 1 TAB PO TID for 10 Days, #30 TAB Hydromorphone HCl (Hydromorphone HCl) 2 Mg Tab 1-2 TAB PO Q4 PRN for Pain, #20 TAB Continued Medications: Alprazolam (Xanax) 0.5 Mg Tab 0.25 MG PO DAILY PRN for Anxiety, TAB Levothyroxine Sodium (Levothyroxine Sodium) 112 Mcg Tab 112 MCG PO QAM, #30 Multivitamin (Multivitamin) Tab 1 TAB PO DAILY, TAB Pantoprazole (Protonix) 40 Mg Tab 40 MG PO BID for 30 Days, #60 TAB Discontinued Medications: Levothyroxine Sodium (Levothyroxine Sodium) 200 Mcg Tab 200 MCG PO QAM, #30 Discharge Exam Patient complains of headache that is frontal, behind her eyes, and 4/10 Also complains of neck pain and spinal pain that is 5-6/10 Review of Systems: Constitutional: + fatigue, No chills, No fever Respiratory: No cough, No shortness of breath Cardiovascular: No chest pain Abdomen: No nausea, No pain, No vomiting Genitourinary - Female: No dysuria Neurologic: No numbness/tingling, No vertigo, No weakness Physical Exam: General Appearance: WD/WN, no apparent distress Eyes: normal inspection, PERRL, EOMI, sclerae normal Neck: + pertinent finding (Posterior neck pain with neck flexion, extension , and rotation) Respiratory/Chest: chest non-tender, lungs clear, normal breath sounds, no respiratory distress, no accessory muscle use Cardiovascular: regular rate, rhythm, no edema, no gallop, no murmur Abdomen / GI: normal bowel sounds, non tender, soft 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 On admission she was afebrile but there was concern for meningitis so she was started on ceftriaxone, vancomycin, acyclovir, and Levaquin. A CT head was performed and was negative, as well as an LP that obtained a cell count, culture , and viral and bacterial panels. The CSF showed an elevated WBC and glucose. She was also started on pain control. She initially was given Tylenol but required increased strength pain medications so was transitioned to fentanyl and Dilaudid but eventually was moved to a Dilaudid ANGLESMITH HELPER requiring up to a mg/hr to control her pain. Her pain improved during her admission while awaiting cultures. Serum lyme was negative, and CSF gram stain and culture were negative. She remained afebrile with improving pain so she was transitioned to PO pain medications and based on her symptoms, clinical suspicion and recommendations from ID, as well as clinical improvement, we were comfortable discontinuing her antibiotics and discharging her home. During her admission she was also found to be anemic with a very low iron and treated Leyda with IV Iron with plans to follow up with Dr. Galvan of Heme/Onc as an outpatient. The patient was also found to be taking an excessive amount of thyroid hormone due to her improved compliance with the medication instructions, so we changed her prescribed intake to only 112mcg of thyroxine daily. Total Time Spent: Greater than 30 minutes This includes examination of the patient, discharge planning, medication reconciliation, and communication with other providers. (Shawn Valladares MD) Discharge Instructions Please refer to the electronic Patient Visit Report (Discharge Instructions) for additional information. (Shawn Valladares MD) Additional Copies To Nuzhat Perales DO History Resident Physician Supervision Note: I interviewed and examined the patient. Discussed with Dr. Valladares and agree with findings and plan as documented in the note. Any exceptions or clarifications are listed here: Improved somewhat and anxious to get home. Cultures are negative for bacteria, HSV was still pending at the time of discharge. Vitals reviewed No acute distress, anxious HEENT-positive tenderness to palpation along spinous processes of the neck and spine, stiffness in the neck with improved nuchal rigidity Regular rate and rhythm, no murmurs, rubs Clear to auscultation bilaterally, breathing unlabored, no wheezes crackles or rhonchi Abdomen positive bowel sounds soft nontender nondistended Extremities no edema, 2 posterior cells pedis pulses Skin-no rashes Patient is a 41-year-old female with history of chronic iron and B12 deficiency anemia secondary to gastric bypass status, hypothyroidism, here with meningitis. Most likely viral meningitis based on CSF studies, is improving already on Decadron and empiric antibiotics for bacterial meningitis as well as HSV coverage. -No growth in CSF cultures, Lyme serology in serum negative, Lyme PCR and HSV PCR in the CSF still pending-can stop antibiotics and stop Decadron -Stable for discharge to home -Continue pain control -Appreciate ID consult Hypothyroidism-TSH was 120 in April 2016, however despite her extremely high dose of levothyroxine, she was not likely absorbing it very well and now that she has been educated on that, her TSH is now undetectable-we'll lower her dose to 112 daily for now and recommend recheck of TSH in 2-3 weeks Anemia-hemoglobin 9 today, severe iron deficiency anemia with ferritin of 3, secondary to poor absorption and gastric bypass status. Her B12 and folate levels are acceptable. 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 The patient was contacted by phone and I also contacted infectious disease Dr. Schmidt. We agreed to treat her with another 10 days of Valtrex 1000 mg by mouth 3 times a day. Documented By: Chloe Dillon (Chloe Dillon MD)
[2016-10-08 10:33] LABS: LYME DNA PCR CSF OR SYNOVIAL Not detected (Not Detected); LYME DNA SOURCE CSF; LYME IGG CSF NO BANDS DETECTED; LYME IGM CSF NO BANDS DETECTED
== END 2016-10-04 19:52 | disposition home or self-care (01) | DRG 76 ==
LOC: ENRESERVTM → CANRESERV → ENRESERVDT → C.EDB 16:16 → C.MSICU 22:05 → C.2E 10-02 18:59
PROVIDERS: ADMIT Family Medicine; ATTEND Hospitalist
DX: A87.9 Viral meningitis, unspecified (principal); E03.9 Hypothyroidism, unspecified; D50.9 Iron deficiency anemia, unspecified; F17.200 Nicotine dependence, unspecified, uncomplicated; Z98.84 Bariatric surgery status; R51 Headache; E53.8 Deficiency of other specified B group vitamins

== ENCOUNTER → 2016-11-19 | Outpatient (CLI) | payer OTHER ==
[~2016-11-19] MED LIST changes: -CLIN150C PO; -HYDR-3983 PO; +HYDR2TAB3 PO; +LEVO112T4 PO; -LEVO25TA PO; -LEVO300T2 PO; -ONDA4TAB46 PO
[2016-11-19 12:52] LABS: BASO % 0.4 %; BASO ABS # 0.02 K/uL (0-0.2); COMPLETE YES; EOS % 1.1 %; HEMATOCRIT 33.4 % (37-47); IG% 0.2 %; LYMPH ABS # 0.94 K/uL (1.2-3.4); MEAN CELL VOLUME 76.1 fL (80-100); MEAN CORPUSCULAR HEMOGLOBIN 22.6 pg (25-34); MEAN CORPUSCULAR HGB CONC 29.6 g/dl (32-36); MEAN PLATELET VOLUME 9.6 fL (7.4-10.4); MONO % 8.9 %; NEUT % 69.4 %; PLATELET COUNT 273 K/uL (130-400); RED BLOOD COUNT 4.39 M/uL (4.2-5.4); WHITE BLOOD COUNT 4.71 K/uL (4.8-10.8)
[2016-11-19 13:27] LABS: FERRITIN 2.8 ng/ml (8.0-388.0); THYROID STIMULATING HORMONE 2.83 uIu/ml (0.300-4.500)
[2016-11-22 03:35] LABS: IGA SERUM 210 mg/dL (81-463); TIS TRANS IGA 1 U/mL (<4)
== END | disposition home or self-care (01) ==
LOC: C.LAB 11:33
PROVIDERS: ATTEND Family Medicine
DX: E03.9 Hypothyroidism, unspecified (principal); D50.9 Iron deficiency anemia, unspecified; E53.8 Deficiency of other specified B group vitamins

== ENCOUNTER → 2017-02-19 | Outpatient (CLI) | payer OTHER ==
[~2017-02-19] MED LIST changes: +DLD2 PO; -HYDR2TAB3 PO
[2017-02-19 17:41] LABS: HEMATOCRIT 28.2 % (37-47); MEAN CORPUSCULAR HEMOGLOBIN 22.4 pg (25-34); MEAN CORPUSCULAR HGB CONC 29.4 g/dl (32-36); MEAN PLATELET VOLUME 10.7 fL (7.4-10.4); PLATELET COUNT 381 K/uL (130-400); RED BLOOD COUNT 3.71 M/uL (4.2-5.4); WHITE BLOOD COUNT 7.13 K/uL (4.8-10.8)
[2017-02-19 17:51] LABS: BLOOD UREA NITROGEN 9 mg/dl (7-18); BUN/CREATININE RATIO 10.1 (10-20); CALCIUM 8.6 mg/dl (8.5-10.1); CARBON DIOXIDE 26 mmol/L (21-32); CHLORIDE 109 mmol/L (98-107); CREATININE 0.91 mg/dl (0.60-1.20); GLUCOSE 117 mg/dl (70-99); GLUCOSE,FASTING 117 mg/dl (70-99); POTASSIUM 4.2 mmol/L (3.5-5.1); SODIUM 140 mmol/L (136-145)
[2017-02-19 18:02] LABS: CHOLESTEROL 146 mg/dl (0-200); CHOLESTEROL/HDL RATIO 2.8; FERRITIN 1.9 ng/ml (8.0-388.0); HDL CHOLESTEROL 53 mg/dl; LDL CHOLESTEROL CALCULATED 77 mg/dl; TRIGLYCERIDES 81 mg/dl (0-150); VERY LOW DENSITY LIPOPROT CALC 16 mg/dl
== END | disposition home or self-care (01) ==
LOC: C.LABPBG 12:23
PROVIDERS: ATTEND Family Medicine
DX: Z00.00 Encounter for general adult medical examination without abnormal findings (principal); E03.9 Hypothyroidism, unspecified; D50.9 Iron deficiency anemia, unspecified; R10.9 Unspecified abdominal pain

== ENCOUNTER → 2017-03-08 | Outpatient (CLI) | payer OTHER | END | disposition home or self-care (01) | LOC: C.LABSPEC 15:27 | PROVIDERS: ATTEND Family Medicine | DX: R39.9 Unspecified symptoms and signs involving the genitourinary system (principal) ==

== ENCOUNTER 2021-06-01 21:41 | Observation (INO) ==
[2021-06-01] MEDS ORDERED: SODIUM CHLORIDE 0.9% 1000ML 500 ML IV ONE (22:27)
[2021-06-01 22:30] LABS: Appearance Urine Cloudy (Clear); Bacteria Urine Automated 3+ (Negative); Bilirubin Urine Negative (Negative); Blood Urine 2+ (Negative); Color Urine Dark Yellow; Epithelial Cell Urine Auto >30 /lpf (0-5); Glucose Urine UA Negative (Negative); Ketones Urine Trace (Negative); Leukocyte Esterase Urine 1+ (Negative); Nitrite Urine Positive (Negative); Protein Urine 3+ (Negative); Specific Gravity Urine 1.029 (1.000-1.030); Urobilinogen Urine Negative (Negative); WBC Urine Automated >30 /hpf (0-5); pH Urine 5.5 (4.5-7.5)
[2021-06-01 22:32] LABS: Hematocrit (blood only) 21.9 % (37-47); Hemoglobin 5.3 g/dL (12.0-16.0); Mean Corpuscular Hgb Conc 24.2 g/dL (32-36); Nucleated RBC # (auto) 0.06 K/uL (0-0); Nucleated RBC % (auto) 0.9 %; Platelet Count 260 K/uL (130-400); RDW Standard Deviation 50.5 fL (36.4-46.3); Red Blood Count 3.32 M/uL (4.2-5.4); White Blood Count 5.85 K/uL (4.8-10.8)
[2021-06-01] MEDS ORDERED: SODIUM CHLORIDE 0.9% 250 ML IV PRN (22:34)
--- NOTE | 2021-06-01 22:34 | Emergency Department Note ---
Impression & Plan Weakness, SOB (shortness of breath), Anemia, UTI (urinary tract infection), Headache ED Provider Note LeukocyteNAME: FRANKLIN REDMAN AGE: 46 SEX: F : 1975 ARRIVES VIA: Walk-In INFORMANT: [Patient] ED PROVIDER(S): [Josr Gray MD] CHIEF COMPLAINT: Abnormal labs HISTORY OF PRESENT ILLNESS: The patient is a 46-year-old female who presents to the ER with complaints of a low hemoglobin. The value was in the range of 5-6. The patient states that for the last week, she just has not felt well. She had a headache for 4 days, she had a low-grade fever, she has had body aches, some back and leg pain. Her urine has been dark and foul-smelling. She had an outpatient Covid test that was negative. Today, she had lab work done and she was told that her blood cou nt was quite low. The patient has noticed that she is pale. She has been short of breath and quite fatigued. No chest pain. She is not vaccinated for COVID-19. Of note, the patient has had transfusions before secondary to the inability to absorb iron. Because of this, she had a reversal of her gastric bypass. REVIEW OF SYSTEMS: See HPI for pertinent positives and negatives. A total of ten systems were reviewed and were otherwise negative. PMHx/PSHx: See Below SOCIAL HISTORY: See Below. PHYSICAL EXAM: GENERAL: Patient is in no acute distress. HEENT: No acute trauma, normocephalic atraumatic, mucous membranes moist, no nasal congestion, no scleral icterus. NECK: No stridor, no adenopathy, no meningismus, trachea is midline. LUNGS: Clear to auscultation bilaterally, no wheeze, no rhonchi, breath sounds equal. HEART: Subtle systolic murmur, regular rate and rhythm. ABDOMEN: Soft, nontender, bowel sounds positive, no hernias, no peritonitis. EXTREMITIES: No cyanosis or edema, full range of motion of all the joints without pain or difficulty, no signs for acute trauma. NEUROLOGIC: Oriented x 3, no acute motor or sensory deficits, no focal weakness. SKIN: No rash, no jaundice, no diaphoresis. Pale. Rectal: Brown stool, heme-negative. DIFFERENTIAL DIAGNOSIS: Infection, UTI, dehydration, metabolic abnormality, hypo/hyperglycemia, COVID-1 9, GI bleeding, electrolyte disturbance, anemia, hypoxia, cardiac sources, intracerebral event, toxicologic issues, stroke, TIA, as well as other pathologies. EMERGENCY DEPARTMENT COURSE/PROCEDURES: ECG: Indication was shortness of breath. The ECG shows a normal sinus rhythm with a rate of 92. There is no ST elevation, no PVCs. The QTc is 437. Continuous Cardiac Monitoring: An order was placed for continuous cardiac monitoring. The monitor shows a rate of 74 with normal sinus rhythm. Critical Care Note: I have personally spent 37 minutes of critical care time in the direct management of this patient. This includes bedside care, interpretation of diagnostic studies, and testing, discussion with consultants, patient, and family members, and other required patient management activities. This 37 minutes is in excess of all separately billable procedures. MEDICAL DECISION MAKING: There is no leukocytosis. The patient is quite anemic with a hemoglobin of 5.3. I did perform a rectal exam, stool was brown and heme-negative. Platelet count returned at 260. No coagulopathy. Potassium somewhat low at 3.2, no renal failure. No concerning liver enzyme elevation. testing was negative. Urinalysis shows evidence for infection. Covid, influenza and RSV testing are still pending. Chest film does not show pneumonia or CHF. Patient presents with fatigue, weakness and some foul-smelling urine. She was found to be anemic with a UTI. The patient did sign consent for a blood transfusion. 1 unit of blood was ordered to be given while here in the ED. The patient was given IV saline, 500 cc. She was given IV Protonix, IV Zofran, IV morphine, IV Pepcid and IV Tylenol. She was given IV Levaquin for her UTI Patient does seem to be feeling a bit improved. I do think she requires a hospital stay. She will likely require more than 1 unit of packed red blood cells. The cause for the anemia at this point is not not clear. Further work- up is warranted. I spoke to the patient and case management. The on-call hospitalist was consulted. Past Med/Surg History Medical History Acid reflux Anxiety B12 deficiency Gastric ulcer Gastrogastric fistula GI bleed HSV-2 infection Hypothyroidism Iron deficiency anemia Migraine headache Surgical History (Updated 11/24/20 @ 05:59 by Nuzhat Perales DO) H/O section H/O ovarian cystectomy Status post gastric bypass for obesity (2008) 2008/reversal in January 2018 Family History Brother Graves disease Grandmother (Maternal) Breast cancer Grandmother Ovarian cancer Denies family history of Prostate cancer Myocardial infarction Hypertension Social History Smoking Status: Never smoker Age Started Using Tobacco: 20; Hx Alcohol Use: Yes Hx Substance Use: No Communication Ability: Effective Beliefs That Will Affect Care: None marital status: Current Living Situation: Family current occupational status: employed 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 Feels Safe at Home: Yes Childhood Exposure to Second-Hand Smoke: Yes caffeine: Yes during the past year weight has: increased > 10 lbs Dental Care, Regularly: Yes Physical Activity Frequency: Daily Seatbelt Use: always Sunscreen Use: Yes Allergies Allergies Allergy/AdvReac Type Severity Reaction Status Date / Time Penicillins Allergy Severe FACIAL Verified 06/01/21 22:50 SWELLING,HIVES Sulfa (Sulfonamide Allergy Intermediate Hives Verified 06/01/21 22:50 Antibiotics) Home Meds Home Medications Medication Instructions Recorded Confirmed levothyroxine 300 mcg tablet 300 mcg PO DAILYBB 06/01/21 06/01/21 Results & Data (ED) Vital Signs Vital Signs - 24 hr 06/01/21 21:42 06/01/21 23:29 Temperature 36.7 C 36.9 C Temperature Source Temporal Artery Scan Oral Pulse Rate 74 86 Respiratory Rate 16 20 Respiratory Depth Normal Blood Pressure 117/71 123/81 Blood Pressure Mean 86 95 Blood Pressure Position Sitting Pulse Oximetry 95 100 Oxygen Delivery Method Room Air Sepsis Recent Fever Within 48 Hours No Sepsis New/Unexplained Change in Mental Status No Sepsis Action Taken by Nursing No Action Required Home Medications Current Medication List: was personally reviewed by me Laboratory Data Attestation: I reviewed the patient's lab results. Result diagrams: 06/01/21 22:05 06/01/21 22:05 Lab Results 06/01/21 06/01/21 06/01/21 Range/Units 21:58 22:05 22:05 WBC 5.85 (4.8-10.8) K/uL RBC 3.32 L (4.2-5.4) M/uL Hgb 5.3 L* (12.0-16.0) g/dL Hct 21.9 L (37-47) % MCV 66.0 L (80-100) fL MCH 16.0 L (25-34) pg MCHC 24.2 L (32-36) g/dL RDW Std Deviation 50.5 H (36.4-46.3) fL RDW Coeff of Robert 21.0 H (11.5-14.5) % Plt Count 260 (130-400) K/uL Immature Gran % (Auto) 0.3 % Neut % (Auto) 71.9 % Lymph % (Auto) 13.5 % [place] % (Auto) 12.6 % Eos % (Auto) 1.4 % Baso % (Auto) 0.3 % Neut # (Auto) 4.20 (1.4-6.5) K/uL Lymph # (Auto) 0.79 L (1.2-3.4) K/uL [place] # (Auto) 0.74 H (0.11-0.59) K/uL Eos # (Auto) 0.08 (0-0.5) K/uL Baso # (Auto) 0.02 (0-0.2) K/uL Immature Gran # (Auto) 0.02 (0.00-0.02) K/uL Absolute Nucleated RBC 0.06 H (0-0) K/uL Nucleated RBC % (auto) 0.9 % Polychromasia 1+ Hypochromasia Present Poikilocytosis Present Anisocytosis Present Microcytosis Present Tear Drop Cells Occasional PT (9.0-12.0) Seconds INR (0.9-1.1) APTT (21.0-31.0) Seconds PTT Ratio Sodium 139 (136-145) mmol/L Potassium 3.2 L (3.5-5.1) mmol/L Chloride 107 (98-107) mmol/L Carbon Dioxide 25 (21-32) mmol/L Anion Gap 7.0 (3-11) BUN 16 (7-18) mg/dl Creatinine 0.87 (0.6-1.2) mg/dl Est Cr Clr Drug Dosing 74.0 ml/min Est GFR ( Amer) 93.9 ml/min Est GFR (Non-Af Amer) 81.0 ml/min BUN/Creatinine Ratio 17.9 (10-20) Glucose 87 (70-99) mg/dl Calcium 9.4 (8.5-10.1) mg/dl Magnesium 2.1 (1.8-2.4) mg/dl Total Bilirubin 0.4 (0.2-1) mg/dl AST 23 (15-37) U/L ALT 22 (12-78) Alkaline Phosphatase 81 (45-117) U/L Total Protein 7.8 (6.4-8.2) gm/dl Albumin 3.4 (3.4-5.0) gm/dl Globulin 4.4 H (2.5-4.0) gm/dl Albumin/Globulin Ratio 0.8 L (0.9-2) HCG, Qual (Negative) Urine Color Dark Yellow Urine Appearance Cloudy A (Clear) Urine pH 5.5 (4.5-7.5) Ur Specific [place] 1.029 (1.000-1.030) Urine Protein 3+ H (Negative) Urine Glucose (UA) Negative (Negative) Urine Ketones Trace H (Negative) Urine Blood 2+ H (Negative) Urine Nitrite Positive A (Negative) Urine Bilirubin Negative (Negative) Urine Urobilinogen Negative (Negative) Ur Leukocyte Esterase 1+ H (Negative) Urine WBC (Auto) >30 H (0-5) /hpf Urine RBC (Auto) 10-30 H (0-4) /hpf U Hyaline Cast (Auto) >30 H (0-5) /lpf U Epithel Cells (Auto) >30 H (0-5) /lpf Urine Bacteria (Auto) 3+ H (Negative) Blood Type Antibody Screen Crossmatch 06/01/21 06/01/21 06/01/21 Range/Units 22:05 22:05 22:05 WBC (4.8-10.8) K/uL RBC (4.2-5.4) M/uL Hgb (12.0-16.0) g/dL Hct (37-47) % MCV (80-100) fL MCH (25-34) pg MCHC (32-36) g/dL RDW Std Deviation (36.4-46.3) fL RDW Coeff of Robert (11.5-14.5) % Plt Count (130-400) K/uL Immature Gran % (Auto) % Neut % (Auto) % Lymph % (Auto) % [place] % (Auto) % Eos % (Auto) % Baso % (Auto) % Neut # (Auto) (1.4-6.5) K/uL Lymph # (Auto) (1.2-3.4) K/uL [place] # (Auto) (0.11-0.59) K/uL Eos # (Auto) (0-0.5) K/uL Baso # (Auto) (0-0.2) K/uL Immature Gran # (Auto) (0.00-0.02) K/uL Absolute Nucleated RBC (0-0) K/uL Nucleated RBC % (auto) % Polychromasia Hypochromasia Poikilocytosis Anisocytosis Microcytosis Tear Drop Cells PT 10.9 (9.0-12.0) Seconds INR 1.1 (0.9-1.1) APTT 27.0 (21.0-31.0) Seconds PTT Ratio 1.0 Sodium (136-145) mmol/L Potassium (3.5-5.1) mmol/L Chloride (98-107) mmol/L Carbon Dioxide (21-32) mmol/L Anion Gap (3-11) BUN (7-18) mg/dl Creatinine (0.6-1.2) mg/dl Est Cr Clr Drug Dosing ml/min Est GFR ( Amer) ml/min Est GFR (Non-Af Amer) ml/min BUN/Creatinine Ratio (10-20) Glucose (70-99) mg/dl Calcium (8.5-10.1) mg/dl Magnesium (1.8-2.4) mg/dl Total Bilirubin (0.2-1) mg/dl AST (15-37) U/L ALT (12-78) Alkaline Phosphatase (45-117) U/L Total Protein (6.4-8.2) gm/dl Albumin (3.4-5.0) gm/dl Globulin (2.5-4.0) gm/dl Albumin/Globulin Ratio (0.9-2) HCG, Qual Negative (Negative) Urine Color Urine Appearance (Clear) Urine pH (4.5-7.5) Ur Specific [place] (1.000-1.030) Urine Protein (Negative) Urine Glucose (UA) (Negative) Urine Ketones (Negative) Urine Blood (Negative) Urine Nitrite (Negative) Urine Bilirubin (Negative) Urine Urobilinogen (Negative) Ur Leukocyte Esterase (Negative) Urine WBC (Auto) (0-5) /hpf Urine RBC (Auto) (0-4) /hpf U Hyaline Cast (Auto) (0-5) /lpf U Epithel Cells (Auto) (0-5) /lpf Urine Bacteria (Auto) (Negative) Blood Type O Positive Antibody Screen NEGATIVE Crossmatch See Detail 06/01/21 Range/Units 22:05 WBC (4.8-10.8) K/uL RBC (4.2-5.4) M/uL Hgb (12.0-16.0) g/dL Hct (37-47) % MCV (80-100) fL MCH (25-34) pg MCHC (32-36) g/dL RDW Std Deviation (36.4-46.3) fL RDW Coeff of Robert (11.5-14.5) % Plt Count (130-400) K/uL Immature Gran % (Auto) % Neut % (Auto) % Lymph % (Auto) % [place] % (Auto) % Eos % (Auto) % Baso % (Auto) % Neut # (Auto) (1.4-6.5) K/uL Lymph # (Auto) (1.2-3.4) K/uL [place] # (Auto) (0.11-0.59) K/uL Eos # (Auto) (0-0.5) K/uL Baso # (Auto) (0-0.2) K/uL Immature Gran # (Auto) (0.00-0.02) K/uL Absolute Nucleated RBC (0-0) K/uL Nucleated RBC % (auto) % Polychromasia Hypochromasia Poikilocytosis Anisocytosis Microcytosis Tear Drop Cells PT (9.0-12.0) Seconds INR (0.9-1.1) APTT (21.0-31.0) Seconds PTT Ratio Sodium (136-145) mmol/L Potassium (3.5-5.1) mmol/L Chloride (98-107) mmol/L Carbon Dioxide (21-32) mmol/L Anion Gap (3-11) BUN (7-18) mg/dl Creatinine (0.6-1.2) mg/dl Est Cr Clr Drug Dosing ml/min Est GFR ( Amer) ml/min Est GFR (Non-Af Amer) ml/min BUN/Creatinine Ratio (10-20) Glucose (70-99) mg/dl Calcium (8.5-10.1) mg/dl Magnesium Cancelled (1.8-2.4) mg/dl Total Bilirubin (0.2-1) mg/dl AST (15-37) U/L ALT (12-78) Alkaline Phosphatase (45-117) U/L Total Protein (6.4-8.2) gm/dl Albumin (3.4-5.0) gm/dl Globulin (2.5-4.0) gm/dl Albumin/Globulin Ratio (0.9-2) HCG, Qual (Negative) Urine Color Urine Appearance (Clear) Urine pH (4.5-7.5) Ur Specific [place] (1.000-1.030) Urine Protein (Negative) Urine Glucose (UA) (Negative) Urine Ketones (Negative) Urine Blood (Negative) Urine Nitrite (Negative) Urine Bilirubin (Negative) Urine Urobilinogen (Negative) Ur Leukocyte Esterase (Negative) Urine WBC (Auto) (0-5) /hpf Urine RBC (Auto) (0-4) /hpf U Hyaline Cast (Auto) (0-5) /lpf U Epithel Cells (Auto) (0-5) /lpf Urine Bacteria (Auto) (Negative) Blood Type Antibody Screen Crossmatch Administered Medications Discontinued Medications Famotidine (Famotidine 20mg/5ml Iv Push) 20 mg IV ONE STA Stop: 06/01/21 22:51 Last Admin: 06/01/21 22:55 Dose: 20 mg Documented by: [id number] Sodium Chloride (Nss 1000ml) 500 mls @ 999 mls/hr IV .Q31M ONE Stop: 06/01/21 22:57 Last Admin: 06/01/21 22:51 Dose: 999 mls/hr Documented by: [id number] Morphine Sulfate (Morphine Sulfate 4 Mg/Ml 1 Ml Carp\Vial) 4 mg IV NOW STA Stop: 06/01/21 23:05 Last Admin: 06/01/21 23:26 Dose: 4 mg Documented by: [id number] Ondansetron HCl (Ondansetron Inj 2 Mg/Ml 2 Ml Vial) 4 mg IV NOW STA Stop: 06/01/21 22:51 Last Admin: 06/01/21 22:56 Dose: 4 mg Documented by: [id number] Imaging Data Radiologist's Impression: Chest X-Ray 06/01/21 22:27 XR chest 1V portable CLINICAL HISTORY: sob. COMPARISON STUDY: 11/14/2012 TECHNIQUE: 1 view of the chest FINDINGS: Single frontal view of the chest demonstrates the cardiomediastinal silhouette to be within normal limits. The lungs are clear of alveolar opacities. There is no evidence for pleural effusion. There is no evidence for vascular congestion. There is no acute osseous pathology. IMPRESSION: No acute cardiopulmonary disease. ACT 112: Negative or not required by law. Electronically signed by: Genaro Collado M.D. 06/01/2021 10:57 PM Discharge Plan Visit Data Chief Complaint: Abnormal Labs/Diagnostic Testing Stated Complaint: ABNORMAL LABS, HEADACHE, FATIGUE, SOB ED Provider: Josr Gray Discharge Problem: Weakness, SOB (shortness of breath), Anemia, UTI (urinary tract infection), Headache Patient Disposition: Admitted As Inpatient Condition: Fair Forms Stand Alone Forms: My [employer] Prescriptions Prescriptions: No Action levothyroxine 300 mcg Tablet 300 mcg PO DAILYBB RF: 0 Referrals Referrals: Nuzhat Perales DO [Primary Care Provider] -
[2021-06-01 22:46] LABS: Albumin Level 3.4 gm/dl (3.4-5.0); BUN Creatinine Ratio 17.9 (10-20); Calcium 9.4 mg/dl (8.5-10.1); Est GFR (African American) 93.9 ml/min; Potassium 3.2 mmol/L (3.5-5.1)
[2021-06-01 22:48] LABS: Albumin Globulin Ratio 0.8 (0.9-2); Bilirubin,Total 0.4 mg/dl (0.2-1); Globulin 4.4 gm/dl (2.5-4.0); Total Protein 7.8 gm/dl (6.4-8.2)
[2021-06-01] MEDS ORDERED: ONDANSETRON INJ 2 MG/ML 2 ML VIAL IV STA (22:50)
[2021-06-01] MEDS ORDERED: FAMOTIDINE 20MG/5ML IV PUSH IV STA (22:50)
[2021-06-01 22:51] LABS: Anisocytosis Present; Basophils # (auto) 0.02 K/uL (0-0.2); Basophils % (auto) 0.3 %; Eosinophils # (auto) 0.08 K/uL (0-0.5); Eosinophils % (auto) 1.4 %; Hypochromasia Present; Immature Granulocytes # (auto) 0.02 K/uL (0.00-0.02); Immature Granulocytes % (auto) 0.3 %; Lymphocytes # (auto) 0.79 K/uL (1.2-3.4); Lymphocytes % (auto) 13.5 %; Magnesium 2.1 mg/dl (1.8-2.4); Microcytosis Present; Monocytes # (auto) 0.74 K/uL (0.11-0.59); Monocytes % (auto) 12.6 %; Neutrophils % (auto) 71.9 %; Poikilocytosis Present; Polychromasia 1+; Tear Drop Cells Occasional
[2021-06-01] MEDS ORDERED: PANTOprazole 80 MG in DEXTROSE 5% 100 ML IV STA (22:51)
[2021-06-01 22:52] LABS: INR 1.1 (0.9-1.1); Prothrombin Time 10.9 Seconds (9.0-12.0)
[2021-06-01 22:54] LABS: Cast Urine Automated >30 /lpf (0-5)
--- NOTE | 2021-06-01 22:59 | XRay Report ---
XR chest 1V portable CLINICAL HISTORY: sob. COMPARISON STUDY: 11/14/2012 TECHNIQUE: 1 view of the chest FINDINGS: Single frontal view of the chest demonstrates the cardiomediastinal silhouette to be within normal li mits. The lungs are clear of alveolar opacities. There is no evidence for pleural effusion. There is no evidence for vascular congestion. There is no acute osseous pathology. IMPRESSION: No acute cardiopulmonary disease. ACT 112: Negative or not required by law. Electronically signed by: Genaro Collado M.D. 06/01/2021 10:57 PM
[2021-06-01] MEDS ORDERED: levoFLOXacin/D5W 500 MG/100 ML BAG IV STA (23:00)
[2021-06-01] MEDS ORDERED: MoRPHine SULFATE 4 MG/ML 1 ML CARP\\VIAL IV STA (23:04)
[2021-06-01] MEDS ORDERED: ACETAMINOPHEN 1000 MG/100 ML IV IV STA (23:04)
[2021-06-01 23:11] LABS: Pregnancy Test, Serum Negative (Negative)
[2021-06-02 00:02] LABS: Influenza A virus by PCR Negative (Neg); Influenza B virus by PCR Negative (Neg); RSV by PCR Negative (Neg); SARS CoV2 RNA(COVID-19) InHosp NEGATIVE (Negative)
--- NOTE | 2021-06-02 01:27 | History & Physical Report ---
Date of Service June 02, 2021 Assessment & Plan (1) Anemia: Plan: 46 yo F w/ pMHx. of gastric bypass s/p reversal in 2016, Migraines, iron deficiency, hypothyroidism, anxiety, reflux, dysmenorrhea, dysthymic presents with abnormal labs Anemia, hgb 5.3, symptomatic (shortness of breath X1 week), microcytic with elevated RDW, FOBT negative in the setting of prior gastric bypass surgery and reversal and PPI use, points in the direction of nutritional deficiency although we do not have baseline labs differential includes blind loop, bacterial overgrowth and exocrine pancreatic insufficiency - anemia evaluation order set utilized (iron, folate, b12, TIBC, ferritin) - if 1st tier inconclusive, would proceed with 2nd tier labs - smear ordered - Ct a/p w/ iv and oral contrast ordered - 2 U pRBC's given Foul smelling urine UA contaminated with WBC and bacteria - culture pending no frequency, urgency or dysuria, no CVA tenderness nl. temp, HR and BP - given 1x Levofloxacin in the ER - await culture results prior to treatment as unclear picture - CT a/p may give more information - if findings consistent with pyelonephritis would restart Levofloxacin Back pain lower back pain, unclear etiology, reassuring exam with negative straight leg raise and no red flag symptoms was given Morphine in the ER without significant relief - continue to monitor, Tylenol, Toradol for pain along with heating pad Dysthymia - continue Levothyroxine 300 mcg Diet: regular DVT: SCD's Code: full History of Present Illness Chief Complaint: abnormal labs Primary Care Provider: DO Leyda Carlin Ralph has a past medical history of gastric bypass s/p reversal in 2016, Migraines, iron deficiency, hypothyroidism, anxiety, reflux, dysmenorrhea, dysthymic presents with abnormal labs. She has had low grade fevers, body aches, leg pain and strong smelling urine (denies frequency, urgency, dysuria). Her symptoms started one week prior with a migraine and back pain. She was seen in acute care after 5 days of symptoms due to concern for COVID (she is unvaccinated), she was negative for COVID and Flu. She was drinking plenty of fluids and went to check her labs at urgent care and was told at 8PM that she needed to come to the ER for evaluation. She had a gastric bypass in 2008 and it was reversed in 2015. She was anemic and required multiple IV iron infusions which is why the bypass was reversed. She does not take any vitamins. She has reflux and takes OTC Omeprazole 2 pills twice a day for the last year. ER course: Tylenol, Famotidine, Levofloxacin, Morphine, 1L IVF, Zofran, Pantoprazole Allergies Allergy/AdvReac Type Severity Reaction Status Date / Time Penicillins Allergy Severe FACIAL Verified 06/01/21 22:50 SWELLING,HIVES Sulfa (Sulfonamide Allergy Intermediate Hives Verified 06/01/21 22:50 Antibiotics) Home Medications Medication Instructions Recorded Confirmed Type levothyroxine 300 mcg tablet 300 mcg PO DAILYBB 06/01/21 06/01/21 History cyanocobalamin (vitamin B-12) 500 1,000 mcg PO DAILY #100 ea 06/02/21 Rx mcg lozenges levofloxacin 750 mg tablet 750 mg PO DAILY 7 Days #7 tab 06/02/21 Rx Past Med/Surg History Medical History Acid reflux Anxiety B12 deficiency Gastric ulcer Gastrogastric fistula GI bleed HSV-2 infection Hypothyroidism Iron deficiency anemia Migraine headache Surgical History H/O section H/O ovarian cystectomy Status post gastric bypass for obesity (2008) 2008/reversal in January 2018 Family History Brother Graves disease Grandmother (Maternal) Breast cancer Grandmother Ovarian cancer Denies family history of Prostate cancer Myocardial infarction Hypertension Social History Smoking Status: Never smoker Age Started Using Tobacco: 20; Hx Alcohol Use: Yes Alcohol type: beer Hx Substance Use: No Preferred Language: Macedonian Communication Ability: Effective 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: No Beliefs That Will Affect Care: None marital status: Current Living Situation: Family Current Living Situation Comment: with children current occupational status: employed 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 Other Information That Helps Us Care for You: No Feels Safe at Home: Yes Safety Concerns: Feels Safe At This Time Childhood Exposure to Second-Hand Smoke: Yes caffeine: Yes during the past year weight has: increased > 10 lbs Dental Care, Regularly: Yes Physical Activity Frequency: Daily Seatbelt Use: always Sunscreen Use: Yes Review of Systems Review of Systems: Constitutional: admits fevers/chills and vomiting X2 Head: denies trauma Neurologic: admits presyncope ENT: denies stuffiness, sore throat Cardiac: denies chest pain, palpitations, leg edema Pulm.: admits shortness of breath for 1 week GI: denies diarrhea, constipation, blood in stool : denies urgency, frequency or dysuria Physical Exam Constitutional: well developed and well nourished; no acute distress Eyes: PERRL, conjunctivae normal, anicteric sclerae ENMT: external ear and nose normal, oropharynx normal Neck: normal visual inspection Respiratory: normal respiratory effort, lungs clear to auscultation Cardiovascular: RRR, no murmur, no edema Gastrointestinal (Abdomen): normal bowel sounds, soft, nontender, no hepatosplenomegaly Musculoskeletal: tender to palpation over the lower back no CVA tenderness negative straight leg raise Skin: no rashes, warm and dry + pallor Neurologic: no focal motor deficits Psychiatric: A+Ox3, euthymic affect Genitourinary: no CVA tenderness Results & Data Results & Data ([facility]) Vital Signs (Past 12 Hours) Vital Signs Temp Pulse Pulse Resp BP BP Pulse Ox 06/02/21 01:00 76 16 103/78 100 06/02/21 00:33 36.1 C L 84 20 103/59 L 100 06/02/21 00:30 78 18 100 06/02/21 00:03 36.9 C 83 20 103/78 96 06/02/21 00:00 85 20 94 06/01/21 23:48 37.1 C 83 84 20 123/81 123/81 100 06/01/21 23:30 85 14 100 06/01/21 23:29 36.9 C 86 20 123/81 100 06/01/21 23:00 84 13 119/80 100 06/01/21 22:36 87 19 100 06/01/21 21:42 36.7 C 74 16 117/71 95 CBC Results Results Complete Blood Count Results: RBC 3.57 M/uL (4.2-5.4) L 06/02/21 WBC 4.27 K/uL (4.8-10.8) L 06/02/21 Hgb 6.8 g/dL (12.0-16.0) L* 06/02/21 Hct 24.7 % (37-47) L 06/02/21 Plt Count 220 K/uL (130-400) 06/02/21 Chemistry (BMP) Results BMP Results: Sodium 138 mmol/L (136-145) 06/02/21 Potassium 3.4 mmol/L (3.5-5.1) L 06/02/21 Chloride 107 mmol/L (98-107) 06/02/21 Carbon Dioxide 24 mmol/L (21-32) 06/02/21 Anion Gap 8.0 (3-11) 06/02/21 BUN 13 mg/dl (7-18) 06/02/21 Creatinine 0.81 mg/dl (0.6-1.2) 06/02/21 Glucose 86 mg/dl (70-99) 06/02/21 Code Status & VTE Plan VTE Prophylaxis Plan VTE Prophylaxis will be ordered: Yes Supervising Physician Co-Signing Physician Notes Attending addendum: I have physically seen this patient, have supervised the medical residents activities, and agree with the H&P unless as otherwise noted. Assessment and Plan: Hypochromic microcytic anemia- Hemoglobin 5.3 upon admission Check iron studies, B12 and folate History of gastric bypass in 2008 and then subsequent reversal Received 2 units PRBCs as ordered from the ED H&H every 6 hours Hemoccult negative in the ED Urinary dysfunction- Follow urine culture and sensitivity Status post levofloxacin in the ED Further treatment pending results Remaining orders and notations as noted Resident Activity Tracking Resident Involvement: Resident Care Provided Care Provided: Adult Hospital Medicine (1) Anemia Anemia type: unspecified type Qualified Code(s): D64.9 - Anemia, unspecified
[2021-06-02] MEDS ORDERED: KETOROLAC TROMETHAMINE 15 MG/ML VIAL IV PRN (02:09)
[2021-06-02] MEDS: SODIUM CHLORIDE 0.9% 500 ML IV SCH ×2 (02:38→09:35)
[2021-06-02] MEDS ORDERED: OPTIRAY 320 100ml IV ONE (05:38)
[2021-06-02 06:25] VITALS: O2SAT 100
[2021-06-02] MEDS ORDERED: LEVOTHYROXINE SODIUM 150 MCG TABLET PO SCH (06:30)
--- NOTE | 2021-06-02 07:37 | CT Scan Report ---
ABDOMEN AND PELVIS CT WITH IV AND ORAL CONTRAST CT DOSE: 311.15 mGy.cm HISTORY: Flank and back pain. concern for retroperitoneal bleed TECHNIQUE: Multiaxial CT images of the abdomen and pelvis were performed following the use of intrave nous and oral contrast. A dose lowering technique was utilized adhering to the principles of ALARA. COMPARISON STUDY: Abdomen and pelvis CT 09/06/2014. FINDINGS: A few bibasilar linear densities consistent with subsegmental atelectasis or scarring. No p neumoperitoneum. No pneumatosis. No fractures within the visualized osseous structures. Trace pericar dial fluid. The liver, gallbladder, pancreas, spleen, and adrenal glands are unremarkable. No retrope ritoneal lymphadenopathy. Normal caliber abdominal aorta. The bladder and uterus are unremarkable. Bi lateral ovarian cysts. Dominant cyst within the left ovary measures 5.6 cm. Dominant cyst within the right ovary measures 1.6 cm. The left ovary is enlarged due to the multiple cysts and measures 6.7 cm . No pelvic free fluid. No bowel wall thickening or obstruction. Normal appendix. The left kidney enh ances normally. There is mild heterogeneous enhancement within the right kidney with mild perinephric fat stranding. This is concerning for a pyelonephritis. No hydronephrosis. Postoperative changes aga in noted within the stomach. IMPRESSION: 1. Heterogeneous enhancement within the right kidney with mild infiltration. This is suspicious for a pyelonephritis. If the patient is not presenting with symptoms consistent with a pyelonephritis, the n follow-up dedicated renal CT or MRI is recommended to exclude the less likely possibility of an inf iltrative lesion. 2. No hydronephrosis. 3. Bilateral ovarian cysts resulting in enlargement of the left ovary. These have increased in size. Follow-up pelvic ultrasound in 6-8 weeks is recommended to ensure resolution and to exclude the possi bility of an underlying left ovarian lesion. ACT 112: Positive. There are findings on this exam that require communication between the performing entity and the patient following Patient Test Result Information Act ([place] Act 112) guidelines. Electronically signed by: Juanjo Terry M.D. 06/02/2021 7:35 AM
--- NOTE | 2021-06-02 07:55 | Hospitalist Progress Note ---
Date of Service June 02, 2021 Assessment & Plan (1) UTI (urinary tract infection): (2) Iron deficiency anemia: (3) Hypothyroidism: Plan: #microcytic anemia -microcytic anemia accompanied by low RBC, low hemoglobin, low-normal ferritin, low iron, normal reticulocyte count -Hgb 5.3 at presentation up to 6.8 s/p packed RBCsx2 -iron-deficiency anemia vs. anemia of chronic disease; ddx also includes infectious etiology, unidentified bleeding source -iron deficiency anemia favored given bypass history, diet, clinical improvement with blood transfusion, as well as low RBC, low serum iron -lower suspicion for anemia of chronic disease given how low her Hgb is as well as presence of microcytic anemia -bleeding is made less likely by lack of evidence on exam/labs/imaging including neg. FOBT/imaging, normal bilirubin -B12, folate, TSH pending although they would likely cause a macrocytic anemia #UTI -despite lack of urgency/frequency/CVA tenderness/leukocytosis, foul smelling urine in the presence of a UA consistent with a UTI and CT showing evidence of potential pyelonephritis warrants treatment for UTI -continue levofloxacin 750mg IV q 24 -culture pending #hypothyroidism -continue home dose of 300mcg -consider checking TSH level as she hasn't taken this medication in several months Diet: PO as tolerated, regular diet DVT prophylaxis: SCDs Disposition: med surg Admission and Anticipated Discharge Date Admission Date: June 02, 2021 Ruma Crabtree is a 46 y/o woman s/p gastric bypass (2008) and reversal (January 2018) who presented to the ED with flu-like symptoms x5-6 days, concern for UTI x5-6 days and a hemoglobin between 5-6 x1 day. ED workup included: -blood type O+, antibody screen negative -Hgb 5.3 -normal EKG, rate of 92 -negative FOBT +UA w/ culture pending (+leuk esterase, 2+ blood, +nitrites, >30 WBC, +hyaline cast, bacteria 3+, 3+protein, trace ketones) Today: Leyda reports she feels much better after receiving packed RBCs x2 Leyda shared her bypass reversal in 2017 was due to malabsorption and excessive vomiting, requiring her to get 6 blood transfusions and enamel erosion/dentures. Since then she has not had any blood transfusions until this hospital stay. [place] that in the past her iron infusions have improved her symptoms. Diet is poor in red meats, green leafy vegetables. Does not take a multivitamin. 5-6 days ago she began experiencing vomiting, body aches w/ back pain, headache, fever, chills, and foul-smelling urine despite drinking plenty of fluids. Her sx led her to go to an urgent care where she got blood work showing a Hgb between 5-6. In the past several weeks she had a 10-lb unintentional weight loss she attributes to stress (her brother recently at 46 y/o from an SD). She denies bloody stools, bruising, night sweats, swollen glands. Has noted hair loss in her eyelashes. FHx negative for any known blood disorders/malignancies but positive for "nasal" cancer (mother), breast cancer (maternal grandmother), ovarian cancer (grandmother). She never had a mammogram but has had a colonoscopy and EGD. Leyda hasn't taken her levothyroxine in several months. Review of Systems Review of Systems: All systems reviewed & are unremarkable except as noted in Subjective Physical Exam Physical Exam: Appearance: alert, lying in hospital bed with lights off 2/2 headache Eyes: +conjunctival pallor sclera are non-icteric, no injection/conjunctivitis/swelling ENMT: adentulous, moist oral mucosa, tongue is normal in appearance and midline Neck: -nuchal rigidity -LAD in the cervical/supraclavicular regions -ROM intact Respiratory: CTA BL, no rales/rhonchi/wheezing Cardiovascular: RRR, no murmur, no edema Gastrointestinal (Abdomen): normal bowel sounds, soft, nontender, no hepatosplenomegaly Appearance: +striae, tattoos Palpation did not elicit tenderness, rebound or guarding Musculoskeletal: No CVA tenderness Neurologic: 5/5 strength in the following: deltoids, biceps, triceps, hip flexion, plantar flexion, dorsiflexion Sensation to light touch intact in the UE/LE Results & Data Results & Data ([facility]) Vital Signs (Past 12 Hours) Vital Signs Temp Pulse Pulse Resp BP BP Pulse Ox 06/02/21 06:23 36.6 C 71 18 111/82 100 06/02/21 04:58 36.7 C 79 16 115/78 99 06/02/21 04:28 36.7 C 74 15 102/76 100 06/02/21 04:13 36.7 C 74 15 112/80 100 06/02/21 03:51 36.9 C 77 16 119/75 100 06/02/21 03:48 36.9 C 78 15 119/72 100 06/02/21 02:33 36.8 C 74 20 116/80 99 06/02/21 01:33 36.9 C 72 20 106/72 100 06/02/21 01:00 76 16 103/78 100 06/02/21 00:33 36.1 C L 84 20 103/59 L 100 06/02/21 00:30 78 18 100 06/02/21 00:03 36.9 C 83 20 103/78 96 06/02/21 00:00 85 20 94 06/01/21 23:48 37.1 C 83 84 20 123/81 123/81 100 06/01/21 23:30 85 14 100 06/01/21 23:29 36.9 C 86 20 123/81 100 06/01/21 23:00 84 13 119/80 100 06/01/21 22:36 87 19 100 06/01/21 21:42 36.7 C 74 16 117/71 95 Laboratory Results Laboratory Results WBC 4.27 K/uL (4.8-10.8) L 06/02/21 07:59 RBC 3.57 M/uL (4.2-5.4) L 06/02/21 07:59 Hgb 6.8 g/dL (12.0-16.0) L* 06/02/21 07:59 Hct 24.7 % (37-47) L 06/02/21 07:59 MCV 69.2 fL (80-100) L 06/02/21 07:59 MCH 19.0 pg (25-34) L 06/02/21 07:59 MCHC 27.5 g/dL (32-36) L 06/02/21 07:59 RDW Std Deviation 59.9 fL (36.4-46.3) H 06/02/21 07:59 RDW Coeff of Robert 23.8 % (11.5-14.5) H 06/02/21 07:59 Plt Count 220 K/uL (130-400) 06/02/21 07:59 MPV 9.6 fL (7.4-10.4) 06/02/21 07:59 Immature Gran % (Auto) 0.7 % 06/02/21 07:59 Neut % (Auto) 68.6 % 06/02/21 07:59 Lymph % (Auto) 16.2 % 06/02/21 07:59 Dillon % (Auto) 11.7 % 06/02/21 07:59 Eos % (Auto) 2.3 % 06/02/21 07:59 Baso % (Auto) 0.5 % 06/02/21 07:59 Reticulocyte % (Auto) 0.8 % (0.5-2.0) 06/02/21 07:59 Neut # (Auto) 2.93 K/uL (1.4-6.5) 06/02/21 07:59 Lymph # (Auto) 0.69 K/uL (1.2-3.4) L 06/02/21 07:59 Dillon # (Auto) 0.50 K/uL (0.11-0.59) 06/02/21 07:59 Eos # (Auto) 0.10 K/uL (0-0.5) 06/02/21 07:59 Baso # (Auto) 0.02 K/uL (0-0.2) 06/02/21 07:59 Reticulocyte # 0.03 10^6/uL (0.02-0.10) 06/02/21 07:59 Immature Gran # (Auto) 0.03 K/uL (0.00-0.02) H 06/02/21 07:59 Absolute Nucleated RBC 0.06 K/uL (0-0) H 06/01/21 22:05 Nucleated RBC % (auto) 0.9 % 06/01/21 22:05 Polychromasia 1+ 06/02/21 07:59 Hypochromasia Present 06/02/21 07:59 Poikilocytosis Present 06/01/21 22:05 Anisocytosis Present 06/02/21 07:59 Microcytosis Present 06/02/21 07:59 Tear Drop Cells Occasional 06/01/21 22:05 PT 10.9 Seconds (9.0-12.0) 06/01/21 22:05 INR 1.1 (0.9-1.1) 06/01/21 22:05 APTT 27.0 Seconds (21.0-31.0) 06/01/21 22:05 PTT Ratio 1.0 06/01/21 22:05 Sodium 138 mmol/L (136-145) 06/02/21 07:59 Potassium 3.4 mmol/L (3.5-5.1) L 06/02/21 07:59 Chloride 107 mmol/L (98-107) 06/02/21 07:59 Carbon Dioxide 24 mmol/L (21-32) 06/02/21 07:59 Anion Gap 8.0 (3-11) 06/02/21 07:59 BUN 13 mg/dl (7-18) 06/02/21 07:59 Creatinine 0.81 mg/dl (0.6-1.2) 06/02/21 07:59 Est Cr Clr Drug Dosing 79.5 ml/min 06/02/21 07:59 Est GFR ( Amer) 102.4 ml/min 06/02/21 07:59 Est GFR (Non-Af Amer) 88.3 ml/min 06/02/21 07:59 BUN/Creatinine Ratio 16.6 (10-20) 06/02/21 07:59 Glucose 86 mg/dl (70-99) 06/02/21 07:59 Calcium 8.5 mg/dl (8.5-10.1) 06/02/21 07:59 Magnesium 2.1 mg/dl (1.8-2.4) 06/01/21 22:05 Magnesium Cancelled 06/01/21 22:05 Iron 16 mcg/dl (35-150) L 06/01/21 22:05 TIBC 401 mcg/dl (250-450) 06/01/21 22:05 Transferrin 292 mg/dl (200-360) 06/01/21 22:05 Ferritin 44.0 ng/ml (8-388) 06/01/21 22:05 Total Bilirubin 0.4 mg/dl (0.2-1) 06/01/21 22:05 AST 23 U/L (15-37) 06/01/21 22:05 ALT 22 (12-78) 06/01/21 22:05 Alkaline Phosphatase 81 U/L (45-117) 06/01/21 22:05 Total Protein 7.8 gm/dl (6.4-8.2) 06/01/21 22:05 Albumin 3.4 gm/dl (3.4-5.0) 06/01/21 22:05 Globulin 4.4 gm/dl (2.5-4.0) H 06/01/21 22:05 Albumin/Globulin Ratio 0.8 (0.9-2) L 06/01/21 22:05 HCG, Qual Negative (Negative) 06/01/21 22:05 Urine Color Dark Yellow 06/01/21 21:58 Urine Appearance Cloudy (Clear) A 06/01/21 21:58 Urine pH 5.5 (4.5-7.5) 06/01/21 21:58 Ur Specific [place] 1.029 (1.000-1.030) 06/01/21 21:58 Urine Protein 3+ (Negative) H 06/01/21 21:58 Urine Glucose (UA) Negative (Negative) 06/01/21 21:58 Urine Ketones Trace (Negative) H 06/01/21 21:58 Urine Blood 2+ (Negative) H 06/01/21 21:58 Urine Nitrite Positive (Negative) A 06/01/21 21:58 Urine Bilirubin Negative (Negative) 06/01/21 21:58 Urine Urobilinogen Negative (Negative) 06/01/21 21:58 Ur Leukocyte Esterase 1+ (Negative) H 06/01/21 21:58 Urine WBC (Auto) >30 /hpf (0-5) H 06/01/21 21:58 Urine RBC (Auto) 10-30 /hpf (0-4) H 06/01/21 21:58 U Hyaline Cast (Auto) >30 /lpf (0-5) H 06/01/21 21:58 U Epithel Cells (Auto) >30 /lpf (0-5) H 06/01/21 21:58 Urine Bacteria (Auto) 3+ (Negative) H 06/01/21 21:58 SARS-CoV-2 (PCR) NEGATIVE (Negative) 06/01/21 22:28 Influenza Type A (PCR) Negative (Neg) 06/01/21 22:28 Influenza Type B (PCR) Negative (Neg) 06/01/21 22:28 RSV (RT-PCR) Negative (Neg) 06/01/21 22:28 Blood Type O Positive 06/01/21 22:05 Antibody Screen NEGATIVE 06/01/21 22:05 Crossmatch See Detail 06/01/21 22:05 Impressions Chest X-Ray 06/01/21 22:27 XR chest 1V portable CLINICAL HISTORY: sob. COMPARISON STUDY: 11/14/2012 TECHNIQUE: 1 view of the chest FINDINGS: Single frontal view of the chest demonstrates the cardiomediastinal silhouette to be within normal limits. The lungs are clear of alveolar opacities. There is no evidence for pleural effusion. There is no evidence for vascular congestion. There is no acute osseous pathology. IMPRESSION: No acute cardiopulmonary disease. ACT 112: Negative or not required by law. Electronically signed by: Genaro Collado M.D. 06/01/2021 10:57 PM Abdomen/Pelvis CT 06/02/21 02:[address] WITH IV AND ORAL CONTRAST CT DOSE: 311.15 mGy.cm HISTORY: Flank and back pain. concern for retroperitoneal bleed TECHNIQUE: Multiaxial CT images of the abdomen and pelvis were performed following the use of intravenous and oral contrast. A dose lowering technique was utilized adhering to the principles of ALARA. COMPARISON STUDY: Abdomen and pelvis CT 09/06/2014. FINDINGS: A few bibasilar linear densities consistent with subsegmental atelectasis or scarring. No pneumoperitoneum. No pneumatosis. No fractures wit hin the visualized osseous structures. Trace pericardial fluid. The liver, gallbladder, pancreas, spleen, and adrenal glands are unremarkable. No retroperitoneal lymphadenopathy. Normal caliber abdominal aorta. The bladder and uterus are unremarkable. Bilateral ovarian cysts. Dominant cyst within the left ovary measures 5.6 cm. Dominant cyst within the right ovary measures 1.6 cm. The left ovary is enlarged due to the multiple cysts and measures 6.7 cm. No pelvic free fluid. No bowel wall thickening or obstruction. Normal appendix. The left kidney enhances normally. There is mild heterogeneous enhancement within the right kidney with mild perinephric fat stranding. This is concerning for a pyelonephritis. No hydronephrosis. Postoperative changes again noted within the stomach. IMPRESSION: 1. Heterogeneous enhancement within the right kidney with mild infiltration. This is suspicious for a pyelonephritis. If the patient is not presenting with symptoms consistent with a pyelonephritis, then follow-up dedicated renal CT or MRI is recommended to exclude the less likely possibility of an infiltrative lesion. 2. No hydronephrosis. 3. Bilateral ovarian cysts resulting in enlargement of the left ovary. These have increased in size. Follow-up pelvic ultrasound in 6-8 weeks is recommended to ensure resolution and to exclude the possibility of an underlying left ovarian lesion. ACT 112: Positive. There are findings on this exam that require communication between the performing entity and the patient following Patient Test Result Information Act ([place] Act 112) guidelines. Electronically signed by: Juanjo Terry M.D. 06/02/2021 7:35 AM (1) UTI (urinary tract infection) Hematuria presence: with hematuria Urinary tract infection type: acute cystitis Qualified Code(s): N30.01 - Acute cystitis with hematuria (2) Hypothyroidism Hypothyroidism type: acquired Qualified Code(s): E03.9 - Hypothyroidism, unspecified
[2021-06-02 08:17] LABS: Hematocrit (blood only) 24.7 % (37-47); Hemoglobin 6.8 g/dL (12.0-16.0); Mean Corpuscular Hgb Conc 27.5 g/dL (32-36); Mean Corpuscular Volume 69.2 fL (80-100); Mean Platelet Volume 9.6 fL (7.4-10.4); Platelet Count 220 K/uL (130-400); RDW Coefficient of Variation 23.8 % (11.5-14.5); RDW Standard Deviation 59.9 fL (36.4-46.3); Red Blood Count 3.57 M/uL (4.2-5.4); White Blood Count 4.27 K/uL (4.8-10.8)
[2021-06-02 08:30] LABS: Anisocytosis Present; Basophils # (auto) 0.02 K/uL (0-0.2); Basophils % (auto) 0.5 %; Eosinophils % (auto) 2.3 %; Hypochromasia Present; Immature Granulocytes # (auto) 0.03 K/uL (0.00-0.02); Immature Granulocytes % (auto) 0.7 %; Lymphocytes # (auto) 0.69 K/uL (1.2-3.4); Lymphocytes % (auto) 16.2 %; Microcytosis Present; Monocytes % (auto) 11.7 %; Neutrophils # (auto) 2.93 K/uL (1.4-6.5); Neutrophils % (auto) 68.6 %; Polychromasia 1+; Reticulocyte % 0.8 % (0.5-2.0); Reticulocytes # 0.03 10^6/uL (0.02-0.10)
[2021-06-02 08:36] LABS: BUN Creatinine Ratio 16.6 (10-20); Calcium 8.5 mg/dl (8.5-10.1); Creatinine Clr Calc Pharmacy 79.5 ml/min; Est GFR (African American) 102.4 ml/min; Est GFR (Non-African American) 88.3 ml/min; Potassium 3.4 mmol/L (3.5-5.1)
--- NOTE | 2021-06-02 14:58 | Electrocardiogram Report ---
Test Reason : Blood Pressure : / mmHG Vent. Rate : 092 BPM Atrial Rate : 092 BPM P-R Int : 146 ms QRS Dur : 080 ms QT Int : 354 ms P-R-T Axes : 074 067 040 degrees QTc Int : 437 ms Normal sinus rhythm Normal ECG When compared with ECG of 23-MAY-2016 03:46, No significant change was found Confirmed by Ramez Hendrickson ([id number]) on 06/02/2021 2:58:09 PM Referred By: Nuzhat Perales Confirmed By:Ramez Hendrickson
--- NOTE | 2021-06-02 16:22 | Discharge Summary ---
Date of Service June 02, 2021 Admission HPI Per Admitting Provider Leyda Rosas has a past medical history of gastric bypass s/p reversal in 2016, Migraines, iron deficiency, hypothyroidism, anxiety, reflux, dysmenorrhea, dysthymic presents with abnormal labs. She has had low grade fevers, body aches, leg pain and strong smelling urine (denies frequency, urgency, dysuria). Her symptoms started one week prior with a migraine and back pain. She was seen in acute care after 5 days of symptoms due to concern for COVID (she is unvaccinated), she was negative for COVID and Flu. She was drinking plenty of fluids and went to check her labs at urgent care and was told at 8PM that she needed to come to the ER for evaluation. She had a gastric bypass in 2008 and it was reversed in 2015. She was anemic and required multiple IV iron infusions which is why the bypass was reversed. She does not take any vitamins. She has reflux and takes OTC Omeprazole 2 pills twice a day for the last year. ER course: Tylenol, Famotidine, Levofloxacin, Morphine, 1L IVF, Zofran, Pantoprazole Admission Exam Per Admitting Provider Constitutional: well developed and well nourished; no acute distress Eyes: PERRL, conjunctivae normal, anicteric sclerae ENMT: external ear and nose normal, oropharynx normal Neck: normal visual inspection Respiratory: normal respiratory effort, lungs clear to auscultation Cardiovascular: RRR, no murmur, no edema Gastrointestinal (Abdomen): normal bowel sounds, soft, nontender, no hepatosplenomegaly Musculoskeletal: tender to palpation over the lower back no CVA tenderness negative straight leg raise Skin: no rashes, warm and dry + pallor Neurologic: no focal motor deficits Psychiatric: A+Ox3, euthymic affect Genitourinary: no CVA tenderness Principal Diagnosis Severe anemia Uncomplicated pyelonephritis Discharge Exam Constitutional WD/WN, vitals as above Eyes PERRL, conjunctivae normal, anicteric sclerae Respiratory normal respiratory effort, lungs clear to auscultation Cardiovascular RRR, no murmur, no edema Extremities: no calf tenderness and no pedal edema Gastrointestinal (Abdomen) normal bowel sounds, soft, nontender, no hepatosplenomegaly Musculoskeletal no cyanosis or clubbing, extremities motor strength 5/5 Discharge Data Allergies Allergy/AdvReac Type Severity Reaction Status Date / Time Penicillins Allergy Severe FACIAL Verified 06/01/21 22:50 SWELLING,HIVES Sulfa (Sulfonamide Allergy Intermediate Hives Verified 06/01/21 22:50 Antibiotics) Consultations 06/01/21 22:37 ED Decision to Admit Stat Ordered Studies 06/02/21 02:11 CT abd pelvis oral and IV con Urgent Hospital Course (1) Anemia: 46 yo F w/ pMHx. of gastric bypass s/p reversal in 2016, Migraines, iron deficiency, hypothyroidism, anxiety, reflux, dysmenorrhea, dysthymic presents with abnormal labs Anemia Hgb 5.3, symptomatic shortness of breath X1 week, microcytic with elevated RDW, FOBT negative - Ct a/p w/ iv and oral contrast ordered - 2 U pRBC's given - Hemoglobin improved to 6.8; patient is no longer symptomatic Foul smelling urine no frequency, urgency or dysuria, no CVA tenderness UA contaminated with WBC and bacteria - culture grew gram-negative rods. Afebrile, normal vitals otherwise. -Given 1x Levofloxacin in the ER -CT abdomen pelvis showed findings consistent with pyelonephritis on the right kidney -Sent home on Levaquin 750 mg p.o. once daily for 5 days. Back pain lower back pain, unclear etiology, reassuring exam with negative straight leg raise and no red flag symptoms was given Morphine in the ER without significant relief -"Back pain" was likely flank pain due to patient's now confirmed pyelonephritis. -Sent home on 5-day course of Levaquin, see above Dysthymia - continue Levothyroxine 300 mcg Diet: regular DVT: SCD's Code: full Total Time Total Time Spent Total Time Spent (In Minutes): <30 Discharge Plan Discharge Items Patient Disposition: Home - Self-Care Reason For Visit: ANEMIA Discharge Diagnosis: Severe anemia Uncomplicated pyelonephritis Condition on Discharge: Good Activity: Per Instructions section Non-emergency contact: Primary Care Provider Call non-emergency contact if: you have any medication questions and your symptoms worsen Follow-up/Referrals: Nuzhat Perales DO [Primary Care Provider] - Diet: Regular Addtl Attending Provider Instructions: You were admitted to the hospital for severe anemia and a urinary tract infection that was later found to be pyelonephritis, or an infection of your kidneys (in this case, your right kidney). During your stay here, you were given packed red blood cells for your anemia and had testing and imaging done to determine the cause of your urinary tract infection. Once the source of the infection was identified, you were treated with antibiotics and monitor to ensure that you were stable, which you are now. A discharge summary will be sent to your primary care physician to ensure continuity of care. Please bring this discharge summary with you to your next office appointment so that your provider can review it at that time. Follow-up appointments: * Make a follow-up appointment with Dr. Perales, your PCP, within the next week. It is very important that you follow up with them shortly after discharge from the hospital. * Keep all your follow-up appointments as already scheduled. If you cannot make an appointment, notify your provider. Medications: Your medication list has been reviewed and reconciled upon discharge to ensure accuracy and continuity of care. An updated list of all your medications is included with your hospital discharge paperwork. Please review this list closely, and make note of any changes. * We sent a new medication called Levofloxacin, or Levaquin, to your pharmacy. Take Levofloxacin 750 mg, 1 tablet daily for 5 days. Take your medications as instructed; do not skip a dose of your medicines. Make sure all of your doctors know every medicine you are taking (including [id number] medicines, vitamins, and supplements). Call your primary care provider before taking any new medicines (including [id number] medicines, vitamins, and supplements), because some of these may interact with your current medications, or may make your symptoms worse. Tell your primary care provider if you cannot afford your medications. CONTACT YOUR PRIMARY CARE PROVIDER if you experience any of the following: * Pain or burning with urination * Foul-smelling urine * Severe fatigue or weakness * Difficulty following your treatment plan, or difficulty taking medications CALL 911 OR GO TO THE EMERGENCY DEPARTMENT if you experience any of the following: * Sudden, severe abdominal pain or nausea/vomiting * Severe chest pain, or chest pain that radiates (moves) to your jaw or arm * Sudden, severe shortness of breath or difficulty breathing Thank you for allowing us to participate in your care. Pending Studies at Discharge: No Stand-Alone Forms: My [facility], Work/School Release, Smoking Cessation Medications and DC Order Prescriptions: New levofloxacin 750 mg tablet 750 mg PO DAILY 7 Days Qty: 7 RF: 0 cyanocobalamin (vitamin B-12) 500 mcg lozenge 1,000 mcg PO DAILY Qty: 100 RF: 0 Continued levothyroxine 300 mcg Tablet 300 mcg PO DAILYBB RF: 0 Discharge Orders: Discharge Order (Routine); Ordered 06/02/21 Ordered By: Niels Villa Admission Data Admit Date/Time: 06/02/21 01:14 Attending Provider: Jerry Tomlin Admit Provider: Enoch Castillo Primary Care Provider: Nuzhat Perales Other Providers: Jaycob Purdy Supervising Physician Co-Signing Physician Notes I personally examined the patient and verified all epstein points of history and exam, discussed case, and agree with decision making with Dr Villa. feeling better wants to go home vitals noted nad heent nc at mmm breathing unlabored no accessory muscles good effort skin no rashes no pallor or icterus neuro no focal deficits anemia - likely relates to absorption from GI surgeries. transfused, hemodynamically stable. safe for outpt f/u - CBC early next week. may need IV iron. PO B12 outpt f/u of labs in ~3 months might need IM. ?possibly outpt endoscopic vs hematologic w/u but stable for home pyelo - suprisingly mild sx but does have flank pain and CT findings c/w this - abx safe for home, otherwise as above Resident Activity Tracking Resident Involvement: Resident Care Provided Care Provided: Adult Hospital Medicine
--- NOTE | 2021-06-02 17:04 | Billing Data ---
Date of Service June 02, 2021 Coding Level of Care Code D/C DAY MANAGEMENT <30 MINS
[2021-06-02 18:46] VITALS: BP 116/77; PULSE 74; TEMP 98.6
--- NOTE | 2021-06-02 20:23 | Billing Data ---
Date of Service June 02, 2021 Coding Level of Care Code 68033 Initial Inpt Care Lvl 3
[2021-06-02] MEDS ORDERED: levoFLOXacin/D5W 750 MG/150 ML BAG IV SCH (22:00)
== END 2021-06-02 20:27 | disposition home or self-care (01) ==
LOC: ED 21:41 → INTOOBSV 06-02 01:14 → EDINP 06-02 01:14 → SUATTDRO 06-02 01:14 → 2N 06-02 01:48

== ENCOUNTER 2024-01-20 18:49 | Observation (INO) ==
[2024-01-20 21:42] LABS: Albumin Globulin Ratio 1.5 (0.9-2); Albumin Level 4.4 gm/dl (3.4-5.0); BUN Creatinine Ratio 12.4 (10-20); Bilirubin,Total 0.4 mg/dl (0.2-1.0); Calcium 9.5 mg/dl (8.6-10.3); Est GFR (African American) 81.2 ml/min; Globulin 2.9 gm/dl (2.5-4.0); Potassium 3.4 mmol/L (3.5-5.1); Total Protein 7.3 gm/dl (6.0-8.3)
[2024-01-20 21:52] LABS: Basophils # (auto) 0.07 K/uL (0.00-0.20); Basophils % (auto) 1.4 %; Eosinophils # (auto) 0.17 K/uL (0.00-0.50); Eosinophils % (auto) 3.4 %; Hematocrit (blood only) 29.2 % (37.0-47.0); Hemoglobin 8.5 g/dl (12.0-16.0); Immature Granulocytes # (auto) 0.02 K/uL (0.01-0.20); Immature Granulocytes % (auto) 0.4 %; Lymphocytes # (auto) 1.24 K/uL (1.20-3.40); Lymphocytes % (auto) 24.7 %; Mean Corpuscular Hemoglobin 21.7 pg (25.0-34.0); Mean Corpuscular Hgb Conc 29.1 g/dL (32.0-36.0); Mean Corpuscular Volume 74.7 fL (80.0-100.0); Mean Platelet Volume 10.4 fL (9.4-12.4); Monocytes # (auto) 0.33 K/uL (0.11-0.59); Monocytes % (auto) 6.6 %; Neutrophils # (auto) 3.19 K/uL (1.40-6.50); Neutrophils % (auto) 63.5 %; Platelet Count 290 K/uL (130-400); RDW Coefficient of Variation 15.6 % (11.5-14.5); Red Blood Count 3.91 M/uL (4.20-5.40); White Blood Count 5.02 K/ul (4.8-10.8)
--- NOTE | 2024-01-20 22:08 | Emergency Department Note ---
Past Med/Surg History Problem List (Updated 01/25/23 @ 00:07 by Shannon Vegas) Vitamin D deficiency Amphetamine abuse Hypothyroidism Anemia (Acute) Migraine headache Iron deficiency anemia B12 deficiency Anxiety Acid reflux Dysmenorrhea Dysthymic disorder Medical History Acid reflux Amphetamine abuse Anxiety B12 deficiency Gastric ulcer Gastrogastric fistula GI bleed Headache HSV-2 infection Hypothyroidism Hypothyroidism Iron deficiency anemia Migraine headache SOB (shortness of breath) Vitamin D deficiency Weakness Surgical History H/O section H/O ovarian cystectomy Status post gastric bypass for obesity (2008) Family History Brother Graves disease Grandmother (Maternal) Breast cancer Grandmother Ovarian cancer Denies family history of Prostate cancer Myocardial infarction Hypertension Social History (Updated 01/20/24 @ 08:23 by Amelia Daniels LPN) Smoking Status: Current every day smoker Age Started Using Tobacco: 20; Second Hand Exposure: No; Do You Dip or Chew Tobacco: No; Hx Alcohol Use: Yes Alcohol type: beer Hx Substance Use: No Preferred Language: Italian Communication Ability: Effective Solutions Architect Consultant Required: No Beliefs That Will Affect Care: None marital status: Current Living Situation: Family Current Living Situation Comment: with children current occupational status: employed 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 Feels Safe at Home: Yes Childhood Exposure to Second-Hand Smoke: Yes Diet: regular Diet Comment: regular caffeine: Yes during the past year weight has: increased > 10 lbs Dental Care, Regularly: Yes Physical Activity Frequency: Daily Seatbelt Use: always Sunscreen Use: Yes Allergies Allergies Allergy/AdvReac Type Severity Reaction Status Date / Time Penicillins Allergy Severe FACIAL Verified 01/20/24 21:47 SWELLING,HIVES Sulfa (Sulfonamide Allergy Intermediate Hives Verified 01/20/24 21:47 Antibiotics) Home Meds Home Medications Medication Instructions Recorded Confirmed levothyroxine 25 mcg tablet 25 mcg PO DIRECTED PRN 01/20/24 01/20/24 NEEDED PER PT. triamcinolone acetonide 0.1 % 1 applic topical BID PRN PSORIASIS 01/20/24 01/20/24 topical ointment Previous Rx's Medication Instructions Recorded hydroxyzine HCl 10 mg tablet 10 mg PO TID PRN anxiety #60 tabs 04/18/22 omeprazole 40 mg capsule,delayed 40 mg PO DAILY #90 caps 05/14/23 release Results & Data (ED) Vital Signs Vital Signs - 24 hr 01/20/24 19:00 01/20/24 21:30 01/20/24 21:34 Temperature 36.5 C Temperature Source Temporal Artery Scan Pulse Rate 96 H 84 Pulse Rate [Apical] 84 Pulse Rhythm [Apical] Regular Pulse Strength [Apical] Normal Respiratory Rate 18 16 Respiratory Effort / Characteristics Non-Labored Non-Labored Spontaneous Respiratory Depth Normal Normal Respiratory Pattern Regular Regular Blood Pressure 134/84 Blood Pressure [Right Arm] 105/63 Blood Pressure Mean 100 Blood Pressure Mean [Right Arm] 77 Pulse Oximetry 100 97 Oxygen Delivery Method Room Air Room Air Sepsis Recent Fever Within 48 Hours No Sepsis New/Unexplained Change in Mental Status N/A Sepsis Action Taken by Nursing No Action Required Laboratory Data 01/20/24 20:45 01/20/24 20:45 Lab Results 01/20/24 Range/Units 20:45 WBC 5.02 (4.8-10.8) K/ul RBC 3.91 L (4.20-5.40) M/uL Hgb 8.5 L (12.0-16.0) g/dl Hct 29.2 L (37.0-47.0) % MCV 74.7 L (80.0-100.0) fL MCH 21.7 L (25.0-34.0) pg MCHC 29.1 L (32.0-36.0) g/dL RDW Std Deviation 42.0 (36.4-46.3) fL RDW Coeff of Robert 15.6 H (11.5-14.5) % Plt Count 290 (130-400) K/uL MPV 10.4 (9.4-12.4) fL Immature Gran % (Auto) 0.4 % Neut % (Auto) 63.5 % Lymph % (Auto) 24.7 % [place] % (Auto) 6.6 % Eos % (Auto) 3.4 % Baso % (Auto) 1.4 % Neut # (Auto) 3.19 (1.40-6.50) K/uL Lymph # (Auto) 1.24 (1.20-3.40) K/uL [place] # (Auto) 0.33 (0.11-0.59) K/uL Eos # (Auto) 0.17 (0.00-0.50) K/uL Baso # (Auto) 0.07 (0.00-0.20) K/uL Immature Gran # (Auto) 0.02 (0.01-0.20) K/uL Sodium 138 (136-145) mmol/L Potassium 3.4 L (3.5-5.1) mmol/L Chloride 107 (98-107) mmol/L Carbon Dioxide 24 (21-32) mmol/L Anion Gap 7 (3-11) BUN 12 (6-23) mg/dl Creatinine 0.97 (0.6-1.2) mg/dl Est Cr Clr Drug Dosing 73.0 ml/min Est GFR ( Amer) 81.2 ml/min Est GFR (Non-Af Amer) 70.0 ml/min BUN/Creatinine Ratio 12.4 (10-20) Glucose 78 (70-99(Fasting)) mg/dl Calcium 9.5 (8.6-10.3) mg/dl Total Bilirubin 0.4 (0.2-1.0) mg/dl AST 54 H (13-39) U/L ALT 20 (7-52) U/L Alkaline Phosphatase 61 (34-104) U/L Total Protein 7.3 (6.0-8.3) gm/dl Albumin 4.4 (3.4-5.0) gm/dl Globulin 2.9 (2.5-4.0) gm/dl Albumin/Globulin Ratio 1.5 (0.9-2) Discharge Plan Visit Data Chief Complaint: Referred by Doctor Stated Complaint: TRANSFUSION, WEAKNESS ED Provider: Johnny Bueno Forms Stand Alone Forms: My [facility] Prescriptions Prescriptions: No Action omeprazole 40 mg capsule,delayed release(DR/EC) 40 mg PO DAILY Qty: 90 2RF hydroxyzine HCl 10 mg tablet 10 mg PO TID PRN (Reason: anxiety) Qty: 60 1RF levothyroxine 25 mcg tablet 25 mcg PO DIRECTED PRN (Reason: NEEDED PER PT.) Rx Instructions: PER PT "DOSE IS BETWEEN 200-300 MCG, USING THE 25 MCG UNTIL CAN GET PROPER DOSE". triamcinolone acetonide 0.1 % ointment 1 applic topical BID PRN (Reason: PSORIASIS) Referrals Referrals: Nuzhat Perales DO [Primary Care Provider] -
[2024-01-20] MEDS: SODIUM CHLORIDE 0.9% 1,000 ML IV ONE (22:32)
--- NOTE | 2024-01-20 23:53 | History & Physical Report ---
Date of Service January 20, 2024 Assessment & Plan (1) Hypothyroidism: Plan: 48 F with PMH hypothyroidism since childhood, iron deficiency anemia, acid reflux, and vitamin D deficiency s/p gastric bypass (2008) with evidence of overt hypothyroidism and anemia 2/2 prescription nonadherence on ER workup. Now admitted for acute management of low ferritin, over clinical hypothyroidism. Hypothyroidism -Chronic. Managed on levothyroxine 225 mcg daily prior to nonadherence. Nonadherent x 3 months. -TSH of 174.384, free T4 <0.25. -S/p p.o. Synthroid 150 mcg on admission. * Admit to observation MedSurg telemetry * Restart levothyroxine per guidelines 1.6 mcg/kg/day ~140.8 150 mcg * Recheck TSH at outpatient PCP follow-up x 6-8 weeks. Adjust dose as needed Iron Deficiency Anemia -Hgb of 8.5. MCV of 74.7. Ferritin of 2.7. B12 of 251. Likely 2/2 hypothyroidism, malabsorption s/p gastric bypass. -MCV points to iron deficiency, though vitamin B12, folate deficiency may also be at play, given gastric bypass history, subsequent intestinal malabsorption. -S/p IV Venofer 300 mg on admission. * Second IV Venofer 300 mg dose ordered to be administered in the a.m. * Folic acid 1 mg p.o. every morning * Cyanocobalamin 500 mcg p.o. every morning * Trend clinical improvement, then discharge home on p.o. iron. * Trend CBC, ferritin at outpatient PCP follow-up Acid Reflux -Chronic. Managed on omeprazole 40 mg daily * IV pantoprazole 40 mg push daily Vitamin D Deficiency -Chronic, 2/2 malabsorption s/p gastric bypass. * Recommend starting cholecalciferol 50,000 units weekly x 6 weeks PCP follow-up Code: Full code Dispo: Med-Surg telemetry FEN/GI: Regular DVT Prophylaxis: Hold PT/OT: No Consults: None Case Management: No (2) Iron deficiency anemia: (3) Acid reflux: (4) Migraine headache: (5) Vitamin D deficiency: History of Present Illness Primary Care Provider: Nuzhat Perales DO Leyda is a 48-year-old woman with a past medical history of hypothyroidism, and history of gastric bypass (2008 obesity), iron deficiency anemia, vitamin D deficiency, and GERD who was sent to the ER from her PCPs office after experiencing shortness of breath, dyspnea on exertion, generalized weakness, muscle aches, irritability, and brain fog x 1 month. Apparently, she had stopped regularly taking her meds about 3 months ago. Patient follows with Dr. Perales she has chronically been managed on levothyroxine on doses as high as 300 mcg daily. At the time of her recent nonadherence 3 months ago, she was taking approximately 225 mcg daily. In the ED, vitals were also stable, within normal limits. Labs were notable for Hgb-8.5 (MCV-74.7), ferritin-2.7, TSH-174.384, and free T4 <0.25. She received a 1 L bolus of NS in the ER at which point, the hospitalist service was consulted for admission. On admission, patient is alert and oriented x 4. She endorses headache, shortness of breath, and generalized weakness. Otherwise, she denies chest pain, nausea, vomiting, abdominal pain, or pedal edema. Allergies Allergy/AdvReac Type Severity Reaction Status Date / Time Penicillins Allergy Severe FACIAL Verified 01/20/24 21:47 SWELLING,HIVES Sulfa (Sulfonamide Allergy Intermediate Hives Verified 01/20/24 21:47 Antibiotics) Home Medications Medication Instructions Recorded Confirmed Type hydroxyzine HCl 10 mg tablet 10 mg PO TID PRN anxiety #60 tabs 04/18/22 01/20/24 Rx omeprazole 40 mg capsule,delayed 40 mg PO DAILY #90 caps 05/14/23 01/20/24 Rx release triamcinolone acetonide 0.1 % 1 applic topical BID PRN PSORIASIS 01/20/24 01/20/24 History topical ointment cholecalciferol (vitamin D3) 125 125 mcg PO QAM #30 tabs 01/21/24 Rx mcg (5,000 unit) tablet ferrous gluconate 324 mg (37.5 mg 324 mg PO DAILY #30 tabs 01/21/24 Rx iron) tablet folic acid 1 mg tablet 1 mg PO QAM #30 tabs 01/21/24 Rx levothyroxine 150 mcg tablet 150 mcg PO DAILYBB #30 tabs 01/21/24 Rx (Synthroid) Past Med/Surg History Problem List (Updated 01/21/24 @ 01:52 by Niels Villa MD) Vitamin D deficiency Amphetamine abuse Hypothyroidism Anemia (Acute) Migraine headache Iron deficiency anemia B12 deficiency Anxiety Acid reflux Dysmenorrhea Dysthymic disorder Medical History Acid reflux Amphetamine abuse Anxiety B12 deficiency Gastric ulcer Gastrogastric fistula GI bleed Headache HSV-2 infection Hypothyroidism Hypothyroidism Iron deficiency anemia Migraine headache SOB (shortness of breath) Vitamin D deficiency Weakness Surgical History H/O section H/O ovarian cystectomy Status post gastric bypass for obesity (2008) Family History Brother Graves disease Grandmother (Maternal) Breast cancer Grandmother Ovarian cancer Denies family history of Prostate cancer Myocardial infarction Hypertension Social History (Updated 01/20/24 @ 08:23 by Amelia Daniels LPN) Smoking Status: Current every day smoker Tobacco Type: Cigarettes Age Started Using Tobacco: 20; Cigarettes Per Day: 10; Second Hand Exposure: No; Do You Dip or Chew Tobacco: No; Hx Alcohol Use: Yes Alcohol type: beer Hx Substance Use: Yes Last Used Substance Other:: 5 years ago Preferred Language: Divehi Communication Ability: Effective Supplier Engineer Required: No Beliefs That Will Affect Care: None marital status: Current Living Situation: Family Current Living Situation Comment: with children current occupational status: employed 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 Normal conjunctiva, anicteric sclera. Oropharynx normal. Respiratory: Normal respiratory effort, CTABL. Cardiovascular: RRR without murmurs, gallops, or rubs. No pedal edema. Neuro: Alert and oriented x3. Results & Data Results & Data Vital Signs (Past 12 Hours) Vital Signs Temp Pulse Pulse Resp BP BP Pulse Ox 01/20/24 21:34 84 01/20/24 21:30 84 16 105/63 97 01/20/24 19:00 36.5 C 96 H 18 134/84 100 O2 Del Method 01/20/24 21:34 01/20/24 21:30 Room Air 01/20/24 19:00 Room Air Supervising Physician Co-Signing Physician Notes Attending addendum: I have physically seen this patient, have supervised the medical residents activities, and agree with the H&P unless as otherwise noted. Assessment and Plan: Hypothyroidism- Patient ran out of her levothyroxine 225 mcg daily for about 3 months Also significantly contributing to iron deficiency anemia, and has an element of early thyroid myxedema Starting Synthroid 150 mcg as noted Consider addition of Cytomel 25 mcg for a short interval if remains symptomatic Iron deficiency anemia- Hemoglobin 8.5 Likely an issue with malabsorption from gastric bypass, and uncorrected hypothyroidism To receive IV iron as noted B12 deficiency- B12 level 251 on admission, likely secondary to malabsorption from gastric bypass Supplement cyanocobalamin and folic acid as noted Follow serial laboratories Vitamin D deficiency- Calcium vitamin D supplement to offset losses from gastric bypass GERD- Changing omeprazole p.o. to pantoprazole IV while in hospital Time spent educating patient about the necessity of taking thyroid medication as directed Resident Activity Tracking Resident Involvement: Resident Care Provided Care Provided: Adult Hospital Medicine (1) Hypothyroidism Hypothyroidism type: unspecified Qualified Code(s): E03.9 - Hypothyroidism, unspecified (2) Iron deficiency anemia Iron deficiency anemia type: unspecified iron deficiency Qualified Code(s): D50.9 - Iron deficiency anemia, unspecified (3) Acid reflux Esophagitis presence: esophagitis presence not specified Qualified Code(s): K21.9 - Gastro-esophageal reflux disease without esophagitis
[2024-01-21 00:18] LABS: Magnesium 2.1 mg/dl (1.7-2.4)
[2024-01-21] MEDS: POTASSIUM CHLORIDE CRTAB 20 MEQ TABCR PO STA (00:35)
[2024-01-21] MEDS: LEVOTHYROXINE SODIUM 150 MCG TABLET PO STA (00:38)
[2024-01-21] MEDS: IRON SUCROSE 300 MG in SODIUM CHLORIDE 0.9% 250 ML IV ONE ×2 (00:39→08:05)
[2024-01-21] MEDS ORDERED: MELATONIN 3 MG TAB PO PRN (00:42)
[2024-01-21] MEDS: ACETAMINOPHEN 500 MG TAB PO STA (01:34)
[2024-01-21] MEDS: LACTATED RINGER'S 1,000 ML IV SCH (03:27)
[2024-01-21] MEDS: IBUPROFEN 200 MG/10 ML UDC PO PRN (03:55)
[2024-01-21] MEDS: LEVOTHYROXINE SODIUM 150 MCG TABLET PO SCH (03:56)
[2024-01-21 06:19] LABS: Basophils # (auto) 0.05 K/uL (0.00-0.20); Basophils % (auto) 1.3 %; Eosinophils # (auto) 0.15 K/uL (0.00-0.50); Eosinophils % (auto) 3.8 %; Hematocrit (blood only) 26.1 % (37.0-47.0); Hemoglobin 7.5 g/dl (12.0-16.0); Immature Granulocytes # (auto) 0.02 K/uL (0.01-0.20); Immature Granulocytes % (auto) 0.5 %; Lymphocytes # (auto) 0.92 K/uL (1.20-3.40); Lymphocytes % (auto) 23.4 %; Mean Corpuscular Hgb Conc 28.7 g/dL (32.0-36.0); Mean Corpuscular Volume 76.5 fL (80.0-100.0); Mean Platelet Volume 10.1 fL (9.4-12.4); Monocytes # (auto) 0.35 K/uL (0.11-0.59); Monocytes % (auto) 8.9 %; Neutrophils # (auto) 2.44 K/uL (1.40-6.50); Neutrophils % (auto) 62.1 %; Platelet Count 213 K/uL (130-400); RDW Coefficient of Variation 15.6 % (11.5-14.5); RDW Standard Deviation 42.9 fL (36.4-46.3); Red Blood Count 3.41 M/uL (4.20-5.40); White Blood Count 3.93 K/ul (4.8-10.8)
[2024-01-21 06:25] LABS: Albumin Globulin Ratio 1.6 (0.9-2); Albumin Level 3.6 gm/dl (3.4-5.0); BUN Creatinine Ratio 12.2 (10-20); Bilirubin,Total 0.2 mg/dl (0.2-1.0); Calcium 7.9 mg/dl (8.6-10.3); Creatinine Clr Calc Pharmacy 72.9 ml/min; Est GFR (African American) 80.2 ml/min; Est GFR (Non-African American) 69.2 ml/min; Globulin 2.2 gm/dl (2.5-4.0); Magnesium 1.8 mg/dl (1.7-2.4); Potassium 3.7 mmol/L (3.5-5.1); Total Protein 5.8 gm/dl (6.0-8.3)
--- NOTE | 2024-01-21 06:39 | Electrocardiogram Report ---
Test Reason : Blood Pressure : / mmHG Vent. Rate : 083 BPM Atrial Rate : 083 BPM P-R Int : 160 ms QRS Dur : 070 ms QT Int : 404 ms P-R-T Axes : 080 062 071 degrees QTc Int : 474 ms Normal sinus rhythm Low voltage QRS Nonspecific T wave abnormality Abnormal ECG When compared with ECG of 10-JAN-2023 18:28, Nonspecific T wave abnormality, worse in Inferior leads Nonspecific T wave abnormality, worse in Anterolateral leads Confirmed by Marquez Goncalves ([id number]) on 01/21/2024 6:39:21 AM Referred By: Confirmed By:Marquez Goncalves
[2024-01-21 06:42] LABS: Polychromasia 1+
[2024-01-21 06:44] LABS: Ferritin 3.4 ng/ml (8-388)
--- NOTE | 2024-01-21 07:25 | Discharge Summary ---
Date of Service January 21, 2024 Admission HPI Per Admitting Provider Leyda is a 48-year-old woman with a past medical history of hypothyroidism, and history of gastric bypass (2008 obesity), iron deficiency anemia, vitamin D deficiency, and GERD who was sent to the ER from her PCPs office after experiencing shortness of breath, dyspnea on exertion, generalized weakness, muscle aches, irritability, and brain fog x 1 month. Apparently, she had stopped regularly taking her meds about 3 months ago. Patient follows with Dr. Perales she has chronically been managed on levothyroxine on doses as high as 300 mcg daily. At the time of her recent nonadherence 3 months ago, she was ta joseline approximately 225 mcg daily. In the ED, vitals were also stable, within normal limits. Labs were notable for Hgb-8.5 (MCV-74.7), ferritin-2.7, TSH-174.384, and free T4 <0.25. She received a 1 L bolus of NS in the ER at which point, the hospitalist service was consulted for admission. On admission, patient is alert and oriented x 4. She endorses headache, shortness of breath, and generalized weakness. Otherwise, she denies chest pain, nausea, vomiting, abdominal pain, or pedal edema. Principal Diagnosis Anemia, hypothyroidism Discharge Exam General: No acute distress HEENT: PERRLA. Normal conjunctiva, anicteric sclera. Oropharynx normal. Respiratory: Normal respiratory effort, CTABL. Cardiovascular: RRR without murmurs, gallops, or rubs. No pedal edema. Neuro: Alert and oriented x3. Discharge Data Allergies Allergy/AdvReac Type Severity Reaction Status Date / Time Penicillins Allergy Severe FACIAL Verified 01/20/24 21:47 SWELLING,HIVES Sulfa (Sulfonamide Allergy Intermediate Hives Verified 01/20/24 21:47 Antibiotics) Consultations 01/20/24 22:35 Consult Hospitalist Stat 01/21/24 00:21 ED Decision to Admit Stat Hospital Course (1) Hypothyroidism: 48 F with PMH hypothyroidism since childhood, iron deficiency anemia, acid reflux, and vitamin D deficiency s/p gastric bypass (2008) with evidence of overt hypothyroidism and anemia 2/2 prescription nonadherence on ER workup. Now admitted for acute management of low ferritin, over clinical hypothyroidism. Hypothyroidism -Chronic. Managed on levothyroxine 225 mcg daily prior to nonadherence. Nonadherent x 3 months. -TSH of 174.384, free T4 <0.25. -S/p p.o. Synthroid 150 mcg on admission. * Admit to observation MedSurg telemetry * Restart levothyroxine per guidelines 1.6 mcg/kg/day ~140.8 150 mcg * Recheck TSH at outpatient PCP follow-up x 6-8 weeks. Adjust dose as needed Iron Deficiency Anemia -Hgb of 8.5. MCV of 74.7. Ferritin of 2.7. B12 of 251. Likely 2/2 hypothyroidism, malabsorption s/p gastric bypass. -MCV points to iron deficiency, though vitamin B12, folate deficiency may also be at play, given gastric bypass history, subsequent intestinal malabsorption. -S/p IV Venofer 300 mg on admission. * Second IV Venofer 300 mg dose ordered to be administered in the a.m. * Folic acid 1 mg p.o. every morning * Cyanocobalamin 500 mcg p.o. every morning * Trend clinical improvement, then discharge home on p.o. iron. * Trend CBC, ferritin at outpatient PCP follow-up Acid Reflux -Chronic. Managed on omeprazole 40 mg daily * IV pantoprazole 40 mg push daily Vitamin D Deficiency -Chronic, 2/2 malabsorption s/p gastric bypass. * Recommend starting cholecalciferol 50,000 units weekly x 6 weeks PCP follow-up Code: Full code Dispo: Med-Surg telemetry FEN/GI: Regular DVT Prophylaxis: Hold PT/OT: No Consults: None Case Management: No (2) Iron deficiency anemia: (3) Acid reflux: (4) Migraine headache: (5) Vitamin D deficiency: Total Time Total Time Spent Total Time Spent (In Minutes): <30 Discharge Plan Discharge Items Patient Disposition: Home - Self-Care Reason For Visit: LETHARGY, SOB Discharge Diagnosis: Anemia, hypothyroidism Activity: Resume your previous activity Non-emergency contact: Primary Care Provider Call non-emergency contact if: you have any medication questions Follow-up/Referrals: Nuzhat Perales DO [Primary Care Provider] - (PLEASE CALL YOUR PRIMARY CARE PROVIDER TO SCHEDULE A HOSPITAL DISCHARGE FOLLOW-UP APPOINTMENT WITHIN 7-10 DAYS) Diet: Regular Addtl Attending Provider Instructions: You were seen in the hospital for anemia and low thyroid hormone. We also found you were deficient in vitamin B12, vitamin D, and iron. The anemia and vitamin deficiencies are likely due to malabsorption following your gastric bypass surgery. Low thyroid hormone is also contributing to your anemia and lethargy. We have prescribed levothyroxine 150mcg daily to improve your thyroid hormone levels. Please take these on an empty stomach on a consistent basis. We have also prescribed vitamin B12 supplement, vitamin D supplement, and iron gluconate to be taken daily to replenish your body's storage. These will assist you body's ability to make red blood cels, promote bone health, and improve your energy level. Labs will need to be drawn in about 4 weeks to reassess the stability of the anemia, thyroid hormone, vitamin B12 and iron levels. We would also like you to follow up with your PCP, Dr. Perales, to assess your blood work, prescribe your levothyroxine and monitor your vitamin and iron level. This will prevent you from future hospital stays and you will be able to manage your symptoms on an outpatient basis. Pending Studies at Discharge: No Stand-Alone Forms: My [facility] [employer], Work/School Release, Smoking Cessation Medications and DC Order Prescriptions: New levothyroxine [Synthroid] 150 mcg Tablet 150 mcg PO DAILYBB Qty: 30 0RF folic acid 1 mg Tablet 1 mg PO QAM Qty: 30 0RF cholecalciferol (vitamin D3) 125 mcg (5,000 unit) Tablet 125 mcg PO QAM Qty: 30 0RF ferrous gluconate 324 mg (37.5 mg iron) tablet 324 mg PO DAILY Qty: 30 0RF Continued omeprazole 40 mg capsule,delayed release(DR/EC) 40 mg PO DAILY Qty: 90 2RF hydroxyzine HCl 10 mg tablet 10 mg PO TID PRN (Reason: anxiety) Qty: 60 1RF triamcinolone acetonide 0.1 % ointment 1 applic topical BID PRN (Reason: PSORIASIS) Discontinued levothyroxine 25 mcg tablet 25 mcg PO DIRECTED PRN (Reason: NEEDED PER PT.) Rx Instructions: PER PT "DOSE IS BETWEEN 200-300 MCG, USING THE 25 MCG UNTIL CAN GET PROPER DOSE". Discharge Orders: Discharge Order (Routine); Ordered 01/21/24 Ordered By: Ivet Eddy Admission Data Admit Date/Time: 01/20/24 23:35 Attending Provider: Jerry Tomlinit Provider: Niels Villa Primary Care Provider: Nuzhat Perales Other Providers: Jaycob Purdy Other Interventions: Discharge Summary Assessment (RN) Last Done: 01/21/24 14:07 Supervising Physician Co-Signing Physician Notes I personally examined the patient and verified all epstein points of history and exam, discussed case, and agree with decision making with Dr Eddy feeling ok to go home. outlined plans and expected course of improvement vitals noted nad heent nc at mmm breathing unlabored no accessory muscles good effort skin no rashes no pallor or icterus mental fog, fatigue, anemia, profound hypothyroidism -due to B12/iron def and not taking synthroid --->resume synthroid - hard to tell what dose she'll actually need given adherence --> start at 150, repeat TSH in ~4wks, depending on rate of change can then determine if dose seems like it will be appropriate or needs further adjustments. (d/w pt may need monthly TSH for short term future with dose adjustments) anemia/b12/fe def -unclear if she'll absorb PO - but given that her nonadherence is due to life being busy - seems that things will be easier for her if she can absorb PO - PO b12 and iron for next 4wks and then repeat B12 and ferritin - made it clear to pt that i do not expect normalization in that short of a time frame, but that we could at least see ?improvement -and if none then move more quickly to IV iron and IM B12 D deficiency -replace, follow discussed importance of adherence and understanding that life can be hectic and busy, but time spent feeling lousy/in a fog/weak/fatigued and in the hospital is far more inconvenient than remembering to take meds once a day; discussed pillbox. discussed optimal timing of synthroid dosing as well as "perfect can be the enemy of good" and while ideally taking early in the day fasting, taking at some time of day is better than missing. safe/stable for home, CBC, B12, ferritin, TSH in ~4wks then expected to need to be followed closely for several months before hopefully settling into a more "routine" follow up of ~q6 months or so once everything has stabilized.
[2024-01-21] MEDS: FOLIC ACID 1 MG TAB PO SCH (08:06)
[2024-01-21] MEDS: POLYETHYLENE (MIRALAX) 17 GM PACK PO SCH (08:07)
[2024-01-21] MEDS ORDERED: CYANOCOBALAMIN (B-12) 500 MCG TABLET PO SCH (09:00)
[2024-01-21] MEDS: NICOTINE 14 MG/24 HR PATCH TD SCH (09:50)
[2024-01-21] MEDS: ERGOCALCIFEROL 1250 MCG (50,000 UNITS) CAP PO ONE (09:51)
[2024-01-21] MEDS: CHOLECALCIFEROL 125 MCG (5,000 UNITS) TAB PO SCH (09:51)
[2024-01-21] MEDS: CYANOCOBALAMIN 1000 MCG/ML VIAL IM SCH (09:51)
[2024-01-21] MEDS: PANTOprazole 40 MG in SYRINGE 0 ML IV SCH (09:52)
[2024-01-21] MEDS: BUTALBITAL/ACETAMIN/CAFFEINE TAB PO STA (11:07)
--- NOTE | 2024-01-21 19:06 | Billing Data ---
Date of Service January 21, 2024 Coding Level of Care Code 55691 IN/OBS DISCH 30 MIN/LESS
--- NOTE | 2024-01-21 20:18 | Billing Data ---
Date of Service January 21, 2024 Coding Level of Care Code 49590 INT INP/OBS CARE
== END 2024-01-21 14:45 | disposition home or self-care (01) ==
LOC: ED 18:49 → INTOOBSV 23:35 → SUATTDRO 23:35 → EDINP 23:35 → 2N 01-21 01:52